=== PATIENT | male | born 1965 | race Hispanic/Latino ===

== ENCOUNTER 2020-05-19 08:46 | Inpatient (IN) | payer OTHER ==
[~2020-05-19] VITALS: Ht 172.7 cm; Wt 70.8 kg
[2020-05-19] MEDS ORDERED: ACETAMINOPHEN EXTRA STRENGTH 500 MG TABLET ONE (09:17)
[2020-05-19 09:18] LABS: BASOPHILS % (AUTO) 0.3 % (0.0-5.0); EOSINOPHILS % (AUTO) 0.5 % (0.0-8.0); HEMATOCRIT 35.5 % (42-54); LYMPHOCYTES % (AUTO) 4.3 % (21.0-51.0); MEAN CORPUSCULAR HEMOGLOBIN 33.2 pg (27.0-33.0); MEAN CORPUSCULAR HGB CONC 34.9 g/dL (32.0-36.0); MEAN CORPUSCULAR VOLUME 94.9 fL (79-99); MONOCYTES % (AUTO) 5.8 % (3.0-13.0); NEUTROPHILS % (AUTO) 88.4 % (40.0-77.0); PLATELET COUNT (AUTO) 235 K/uL (130-400); RED BLOOD CELL COUNT(AUTO) 3.74 MIL/uL (4.50-6.20); RED CELL DISTRIBUTION WIDTH 12.1 % (11.0-15.5)
[2020-05-19 09:49] LABS: INR 1.09 (0.85-1.15); PARTIAL THROMBOPLASTIN TIME 33.7 SEC (26.3-35.5); PROTHROMBIN TIME 11.7 SEC (9.6-11.6)
[2020-05-19 09:52] LABS: CARBON DIOXIDE 26 mmol/L (21-32); CHLORIDE 94 mmol/L (101-111); CREATININE 0.7 mg/dL (0.5-1.5); GLOMERULAR FILTR. RATE CALC 124 mL/min (>60); GLUCOSE,RANDOM 266 mg/dL (70-105); POTASSIUM 3.7 mmol/L (3.5-5.1); SODIUM SERUM 131 mmol/L (136-145); UREA NITROGEN, BLOOD 14 mg/dL (7-18)
[2020-05-19 10:01] LABS: ALANINE AMINOTRANSFERASE 55 U/L (12-78); ALBUMIN 2.7 g/dL (3.5-5.0); ASPARTATE AMINOTRANSFERASE 40 U/L (10-37); BILIRUBIN,TOTAL 0.6 mg/dL (0.2-1.0); CREATINE KINASE, TOTAL 42 U/L (21-232); MYOGLOBIN 35 ng/mL (10-92); TOTAL PROTEIN, SERUM 7.7 g/dL (6.0-8.3); TROPONIN I < 0.04 ng/mL (0.00-0.06)
[2020-05-19 10:30] LABS: APPEARANCE,URINE Clear (CLEAR); BILIRUBIN,URINE Negative (NEGATIVE); COLOR,URINE Dark Yellow (YELLOW); GLUCOSE, URINE (UA) >=1000 mg/dL (NEGATIVE); KETONES,URINE 15 mg/dL (NEGATIVE); LEUKOCYTE ESTERASE ,URINE Negative (NEGATIVE); NITRATE,URINE Negative (NEGATIVE); OCCULT BLOOD,URINE Negative (NEGATIVE); PH,URINE 5.5 (5.0-8.0); PROTEIN,URINE POS 1+ mg/dL (NEGATIVE)
[2020-05-19 13:27] LABS: BACTERIA,URINE Rare /HPF (None Seen); RBC,URINE 0-1 /HPF (0-1); SQUAMOUS EPITHELIAL CELL,UR Rare /HPF (0-2); WBC,URINE 0-1 /HPF (0-1)
[2020-05-19] MEDS ORDERED: ALBUTEROL INHALER 90MCG/INH IH PRN (15:45)
[2020-05-19] MEDS ORDERED: METHYLPREDNISOLONE SOD SUCC 125MG/2ML VIAL ONE (17:02)
[2020-05-19] MEDS ORDERED: CEFTRIAXONE SODIUM 1 GM ONE (17:02)
[2020-05-19] MEDS ORDERED: DOXYCYCLINE HYCLATE 100 MG TABLET PO ONE (17:02)
[2020-05-19 17:21] LABS: HEMOGLOBIN A1C 8.8 % (4.0-6.0)
[2020-05-19] MEDS ORDERED: SODIUM CHLORIDE 0.9% 100 ML IV ONE (17:21)
[2020-05-19 19:41] LABS: CRP QUANTITATIVE 386.2 mg/L (0.00-9.0)
[2020-05-19] MEDS ORDERED: ENOXAPARIN SODIUM 40 MG/0.4 ML SYRINGE SQ SCH (20:00)
[2020-05-19] MEDS ORDERED: FAMOTIDINE 20MG TAB 20 MG TAB ONE (20:57)
[2020-05-19] MEDS ORDERED: ENOXAPARIN SODIUM 40 MG/0.4 ML SYRINGE SQ ONE (20:57)
[2020-05-19] MEDS: INSULIN HUMULIN R 100 UNIT/ML 3ML SQ SCH (21:00)
[2020-05-19] MEDS: METHYLPREDNISOLONE SOD SUCC 125MG/2ML VIAL IVP SCH (21:00)
[2020-05-19] MEDS: CEFTRIAXONE SODIUM 1 GM IVP SCH (21:00)
[2020-05-19] MEDS: DOXYCYCLINE HYCLATE 100 MG TABLET PO SCH (21:00)
[2020-05-20] MEDS ORDERED: CEFTRIAXONE SODIUM 1 GM ONE ×3 (02:46→22:14)
[2020-05-20] MEDS: CEFTRIAXONE SODIUM 1 GM IVP SCH ×2 (03:45→15:45)
[2020-05-20] MEDS: LACTATED RINGERS 1000ML 1,000 ML IV SCH ×2 (05:45→19:05)
[2020-05-20] MEDS ORDERED: INSULIN HUMULIN R 100 UNIT/ML 3ML ONE ×5 (06:17→20:35)
[2020-05-20] MEDS: INSULIN HUMULIN R 100 UNIT/ML 3ML SQ SCH ×4 (07:30→21:00)
[2020-05-20 07:34] LABS: ALBUMIN 2.4 g/dL (3.5-5.0); BILIRUBIN,TOTAL 0.3 mg/dL (0.2-1.0); POTASSIUM 4.2 mmol/L (3.5-5.1); TOTAL PROTEIN, SERUM 7.4 g/dL (6.0-8.3)
[2020-05-20] MEDS ORDERED: INSULIN GLARGINE 100 UNITS/ML 10 ML VIAL SQ ONE (08:00)
[2020-05-20 08:16] LABS: CRP QUANTITATIVE 435.8 mg/L (0.00-9.0)
[2020-05-20] MEDS: DOXYCYCLINE HYCLATE 100 MG TABLET PO SCH ×2 (09:00→21:00)
[2020-05-20] MEDS: ASCORBIC ACID 500 MG TAB PO SCH (09:00)
[2020-05-20] MEDS: METHYLPREDNISOLONE SOD SUCC 125MG/2ML VIAL IVP SCH ×3 (09:00→21:00)
[2020-05-20] MEDS: FAMOTIDINE 20MG TAB 20 MG TAB PO SCH ×2 (09:00→21:00)
[2020-05-20] MEDS ORDERED: ASCORBIC ACID 500 MG TAB ONE (09:25)
[2020-05-20] MEDS ORDERED: FAMOTIDINE 20MG TAB 20 MG TAB ONE ×2 (09:26→21:53)
[2020-05-20] MEDS ORDERED: ZINC SULFATE 220 CAPSULE ONE (09:26)
[2020-05-20] MEDS ORDERED: METHYLPREDNISOLONE SOD SUCC 125MG/2ML VIAL ONE ×2 (09:26→21:53)
[2020-05-20] MEDS ORDERED: SODIUM CHLORIDE 0.9% 100 ML IV ONE (09:27)
[2020-05-20] MEDS ORDERED: DOXYCYCLINE HYCLATE 100 MG TABLET PO ONE ×2 (11:00→21:53)
[2020-05-20] MEDS: ZINC SULFATE 220 CAPSULE PO SCH (12:00)
--- NOTE | 2020-05-20 14:35 | NUR ---
attempted IA for DC planning and got no keriewr on both phone Addendum: 05/20/20 at 1439 by MAYITO BARFEILD RN CM Amended: Links added.
[2020-05-20] MEDS ORDERED: METHYLPREDNISOLONE SOD SUCC 40MG/ML 1ML ONE (17:26)
[2020-05-21] MEDS: CEFTRIAXONE SODIUM 1 GM IVP SCH ×2 (03:45→15:45)
[2020-05-21 03:54] LABS: BASOPHILS % (AUTO) 0.1 % (0.0-5.0); HEMATOCRIT 37.7 % (42-54); LYMPHOCYTES % (AUTO) 2.6 % (21.0-51.0); MEAN CORPUSCULAR HGB CONC 34.2 g/dL (32.0-36.0); MEAN CORPUSCULAR VOLUME 96.4 fL (79-99); MONOCYTES % (AUTO) 2.7 % (3.0-13.0); PLATELET COUNT (AUTO) 320 K/uL (130-400); RED BLOOD CELL COUNT(AUTO) 3.91 MIL/uL (4.50-6.20); RED CELL DISTRIBUTION WIDTH 12.3 % (11.0-15.5); WHITE BLOOD COUNT (AUTO) 14.7 K/uL (4.8-10.8)
[2020-05-21 04:13] LABS: ALBUMIN 2.3 g/dL (3.5-5.0); BILIRUBIN,TOTAL 0.5 mg/dL (0.2-1.0); POTASSIUM 4.5 mmol/L (3.5-5.1); TOTAL PROTEIN, SERUM 7.4 g/dL (6.0-8.3)
[2020-05-21 04:27] LABS: CRP QUANTITATIVE 375.9 mg/L (0.00-9.0)
[2020-05-21] MEDS ORDERED: INSULIN HUMULIN R 100 UNIT/ML 3ML ONE ×3 (06:39→17:28)
[2020-05-21] MEDS: INSULIN HUMULIN R 100 UNIT/ML 3ML SQ SCH ×5 (07:30→21:00)
[2020-05-21] MEDS: LACTATED RINGERS 1000ML 1,000 ML IV SCH ×2 (08:25→21:45)
[2020-05-21] MEDS ORDERED: METHYLPREDNISOLONE SOD SUCC 40MG/ML 1ML ONE (08:40)
[2020-05-21] MEDS ORDERED: ZINC SULFATE 220 CAPSULE ONE (08:41)
[2020-05-21] MEDS ORDERED: DOXYCYCLINE HYCLATE 100 MG TABLET PO ONE (08:41)
[2020-05-21] MEDS: ASCORBIC ACID 500 MG TAB PO SCH (09:00)
[2020-05-21] MEDS: DOXYCYCLINE HYCLATE 100 MG TABLET PO SCH ×3 (09:00→21:00)
[2020-05-21] MEDS: FAMOTIDINE 20MG TAB 20 MG TAB PO SCH ×3 (09:00→21:00)
[2020-05-21] MEDS: METHYLPREDNISOLONE SOD SUCC 125MG/2ML VIAL IVP SCH ×4 (09:00→21:00)
[2020-05-21] MEDS ORDERED: FAMOTIDINE 20MG TAB 20 MG TAB ONE (09:07)
[2020-05-21] MEDS ORDERED: CEFTRIAXONE SODIUM 1 GM ONE (09:07)
[2020-05-21] MEDS ORDERED: SODIUM CHLORIDE 0.9% 100 ML IV ONE (09:09)
[2020-05-21] MEDS: ZINC SULFATE 220 CAPSULE PO SCH (12:00)
--- NOTE | 2020-05-21 14:34 | NUR ---
SPOKE TO SPOUSE CARLOS GALLEGOS VIA PHONE FOR [place] LIVES WITH SPOUE, IS ACTIVE, INDPENDENT, DRIVES, IS EMPLOYED, NO DME OR HOME SERVICES, SEE DR. BAR CORDERO DCP IS HOME, CARLOS TO PROVIDE TRANSPORT Addendum: 05/21/20 at 1435 by MAYITO BARFIELD RN CM Amended: Links added.
--- NOTE | 2020-05-21 18:35 | NUR ---
PT RECEIVED TO ROOM 408 VIA STRETCHER PER ED STAFF. TRANSFERING FROM BED TO STRETCHER, PT DESATTED TO 86%, SOB WITH ANY EXERTION. 10L O2 VIA NRB. AMADOU IN USE FOR CONTINUOUS MONITORING OF PT'S HEART RATE AND O2 LEVEL. AAOx4. ABLE TO MAKE NEEDS. DENIED PAIN. LR AT 100 ML/HR VIA RIGHT ARM IV. ORIENTED TO ROOM. INSTRUCTED TO NOTIFY NURSE IF O2 SATS DROPS BELOW 92% WITH UNDERSTANDING VERBALIZED. SAFETY MEASURES IN PLACE.
[2020-05-21 19:02] VITALS: BP 128/72
[2020-05-21 20:45] VITALS: BP 127/89
[2020-05-21 23:19] VITALS: BP 105/63
[2020-05-22 03:25] VITALS: BP 102/56
[2020-05-22] MEDS: CEFTRIAXONE SODIUM 1 GM IVP SCH ×2 (04:47→14:53)
[2020-05-22] MEDS: LACTATED RINGERS 1000ML 1,000 ML IV SCH (04:50)
[2020-05-22] MEDS: INSULIN HUMULIN R 100 UNIT/ML 3ML SQ SCH ×4 (06:14→21:27)
[2020-05-22 08:00] VITALS: BP 104/64
[2020-05-22 08:36] LABS: BILIRUBIN,TOTAL 0.3 mg/dL (0.2-1.0); CREATININE 0.8 mg/dL (0.5-1.5); POTASSIUM 4.4 mmol/L (3.5-5.1); TOTAL PROTEIN, SERUM 6.4 g/dL (6.0-8.3)
[2020-05-22 08:45] LABS: CRP QUANTITATIVE 167.4 mg/L (0.00-9.0)
[2020-05-22] MEDS: ASCORBIC ACID 500 MG TAB PO SCH (09:21)
[2020-05-22] MEDS: METHYLPREDNISOLONE SOD SUCC 125MG/2ML VIAL IVP SCH ×3 (09:21→21:23)
[2020-05-22] MEDS: FAMOTIDINE 20MG TAB 20 MG TAB PO SCH ×2 (09:21→21:23)
[2020-05-22] MEDS: DOXYCYCLINE HYCLATE 100 MG TABLET PO SCH ×2 (09:21→21:24)
[2020-05-22] MEDS: ZINC SULFATE 220 CAPSULE PO SCH (12:16)
[2020-05-22 12:53] VITALS: BP 122/73
--- NOTE | 2020-05-22 13:19 | NUR ---
PT LYING IN BED AAOx4. ABLE TO MAKE NEEDS KNOWN. COVID+, ISOLATION PRECAUTION MAINTAINED. SEMI-DAVIS POSITION WITH O2 AT 10L VIA VENTIMASK. O2 SAT 93%. DYSPNEA WITH MINIMUM ACTIVITY. DR. GARNER ROUNDED WITH RECOMMENDATIONS TO KEEP PATIENT IN PRONE POSITION MUCH POSSIBLE, UNDERSTANDING VERBALIZED. PT REPOSITION SELF IN PRONE POSITION. AMADOU IN USE FOR CONTINUOUS MONITORING OF PT'S HEART RATE AND O2 LEVEL. DENIED ANY NEEDS/PAIN. LR AT 75 ML/HR VIA 20G RIGHT ARM IV. CONTINUOUS MONITORING ONGOING. SAFETY MEASURES IN PLACE.
[2020-05-22 17:55] VITALS: BP 125/74
[2020-05-22] MEDS ORDERED: ACETAMINOPHEN EXTRA STRENGTH 500 MG TABLET PO PRN (19:15)
[2020-05-22 20:00] VITALS: BP 126/75
[2020-05-22] MEDS: ENOXAPARIN SODIUM 40 MG/0.4 ML SYRINGE SQ SCH (21:23)
[2020-05-23] VITALS: BP 109/65
[2020-05-23 04:00] VITALS: BP 127/74
[2020-05-23] MEDS: CEFTRIAXONE SODIUM 1 GM IVP SCH ×2 (04:11→14:55)
[2020-05-23 05:18] LABS: BASOPHILS % (AUTO) 0.1 % (0.0-5.0); HEMATOCRIT 37.2 % (42-54); LYMPHOCYTES % (AUTO) 3.4 % (21.0-51.0); MEAN CORPUSCULAR HEMOGLOBIN 32.7 pg (27.0-33.0); MEAN CORPUSCULAR HGB CONC 33.3 g/dL (32.0-36.0); MEAN CORPUSCULAR VOLUME 98.2 fL (79-99); MONOCYTES % (AUTO) 3.8 % (3.0-13.0); NEUTROPHILS % (AUTO) 91.8 % (40.0-77.0); PLATELET COUNT (AUTO) 363 K/uL (130-400); RED BLOOD CELL COUNT(AUTO) 3.79 MIL/uL (4.50-6.20); RED CELL DISTRIBUTION WIDTH 12.1 % (11.0-15.5); WHITE BLOOD COUNT (AUTO) 11.9 K/uL (4.8-10.8)
[2020-05-23 05:43] LABS: ALBUMIN 2.2 g/dL (3.5-5.0); BILIRUBIN,TOTAL 0.4 mg/dL (0.2-1.0); CREATININE 0.9 mg/dL (0.5-1.5); CRP QUANTITATIVE 103.6 mg/L (0.00-9.0); POTASSIUM 4.4 mmol/L (3.5-5.1); TOTAL PROTEIN, SERUM 6.5 g/dL (6.0-8.3)
[2020-05-23] MEDS: INSULIN HUMULIN R 100 UNIT/ML 3ML SQ SCH ×4 (06:50→20:58)
[2020-05-23 07:30] VITALS: BP 128/73
--- NOTE | 2020-05-23 07:45 | NUR ---
PT AAOx4. RESPIRATIONS EVEN AND UNLABORED BUT O2 SAT 91% ON 15L NRB. INSTRUCTED TO BREATHE DEEPLY. REPOSITIONED FROM SUPINE TO PRONE. O2 SAT 97%. WILL MONITOR CLOSELY. SAFETY MEASURES IN PLACE. Addendum: 05/23/20 at 0748 by ESTELLE GARCIA RN RN Amended: Links added.
[2020-05-23] MEDS: FAMOTIDINE 20MG TAB 20 MG TAB PO SCH ×2 (09:13→20:46)
[2020-05-23] MEDS: DOXYCYCLINE HYCLATE 100 MG TABLET PO SCH ×2 (09:13→20:47)
[2020-05-23] MEDS: ASCORBIC ACID 500 MG TAB PO SCH (09:13)
[2020-05-23] MEDS: METHYLPREDNISOLONE SOD SUCC 125MG/2ML VIAL IVP SCH ×3 (09:13→20:46)
[2020-05-23] MEDS: ENOXAPARIN SODIUM 40 MG/0.4 ML SYRINGE SQ SCH ×2 (09:14→20:47)
[2020-05-23] MEDS: ZINC SULFATE 220 CAPSULE PO SCH (12:31)
[2020-05-23 12:33] VITALS: BP 124/72
--- NOTE | 2020-05-23 18:06 | NUR ---
AAOx4 DANGLING AT BEDSIDE IN NO APPARENT DISTRESS. COVID19+, ISOLATION PRECAUTIONS MAINTAINED. DENIES ANY NEEDS/PAIN. SB-SR ON TELE. RESPIRATIONS EVEN AND UNLABORED AT REST. SOB WITH ANY EXERTION. O2 VIA NRB AT 10L AT THIS TIME, O2 SATS MAINTAINING. CLEAR LIQUID DIET. LARGE LOOSE BM TODAY. ADEQUATE URINE OUTPUT. ELEVATED BLOOD GLUCOSES REQUIRING SSI COVERAGE. NEW ORDER FOR COVID19 CONVALESCENT PLASMA, CONSENT SIGNED AND PLACED ON CHART. CONTINUOUS MONITORING ONGOING. SAFETY MEASURES IN PLACE.
[2020-05-23 18:39] VITALS: BP 109/64
[2020-05-23 19:00] VITALS: BP 127/76
--- NOTE | 2020-05-23 20:00 | NUR ---
ASSESSMENT/TEACHING PATIENT AWAKE, ALERT, OX3, NO SOB, NO C/O PAIN AT THIS TIME, OXYGEN NONREBREATHER WEAN DOWN TO 70 %, OXYGEN SAT 99 % WILL CONTINUE TO MONITOR AND WEANING PERIMETERS, DISCUSSED WITH RESPIRATORY THERAPIST, TEACH PATIENT PLAN OF CARE AND EXPECTED OUTCOME, VERBALIZES UNDERSTANDING VIA TEACH BACK
[2020-05-24] VITALS: BP 138/77
--- NOTE | 2020-05-24 | NUR ---
NURSING OBS CONTINUE WITH nrb at 70 % oxygen, sat 99 %, no respiratory distress at this time, call christopher at reach
[2020-05-24 04:00] VITALS: BP 131/73
[2020-05-24] MEDS: CEFTRIAXONE SODIUM 1 GM IVP SCH ×2 (04:46→16:31)
[2020-05-24 05:36] LABS: BASOPHILS % (AUTO) 0.2 % (0.0-5.0); HEMATOCRIT 38.8 % (42-54); MEAN CORPUSCULAR HEMOGLOBIN 32.3 pg (27.0-33.0); MEAN CORPUSCULAR HGB CONC 33.8 g/dL (32.0-36.0); MEAN CORPUSCULAR VOLUME 95.6 fL (79-99); NEUTROPHILS % (AUTO) 90.7 % (40.0-77.0); PLATELET COUNT (AUTO) 340 K/uL (130-400); RED BLOOD CELL COUNT(AUTO) 4.06 MIL/uL (4.50-6.20); RED CELL DISTRIBUTION WIDTH 11.9 % (11.0-15.5); WHITE BLOOD COUNT (AUTO) 11.6 K/uL (4.8-10.8)
[2020-05-24] MEDS: INSULIN HUMULIN R 100 UNIT/ML 3ML SQ SCH ×4 (05:46→21:06)
[2020-05-24 06:36] LABS: ALANINE AMINOTRANSFERASE 46 U/L (12-78); ALBUMIN 2.1 g/dL (3.5-5.0); ASPARTATE AMINOTRANSFERASE 19 U/L (10-37); BILIRUBIN,TOTAL 0.4 mg/dL (0.2-1.0); CARBON DIOXIDE 31 mmol/L (21-32); CHLORIDE 99 mmol/L (101-111); CREATININE 0.7 mg/dL (0.5-1.5); GLOMERULAR FILTR. RATE CALC 124 mL/min (>60); GLUCOSE,RANDOM 182 mg/dL (70-105); LACTATE DEHYDROGENASE 276 U/L (81-234); POTASSIUM 4.4 mmol/L (3.5-5.1); SODIUM SERUM 138 mmol/L (136-145); TOTAL PROTEIN, SERUM 6.4 g/dL (6.0-8.3); UREA NITROGEN, BLOOD 22 mg/dL (7-18)
[2020-05-24] MEDS: ASCORBIC ACID 500 MG TAB PO SCH (08:47)
[2020-05-24] MEDS: ENOXAPARIN SODIUM 40 MG/0.4 ML SYRINGE SQ SCH ×2 (08:47→19:58)
[2020-05-24] MEDS: DOXYCYCLINE HYCLATE 100 MG TABLET PO SCH ×2 (08:47→19:57)
[2020-05-24] MEDS: METHYLPREDNISOLONE SOD SUCC 125MG/2ML VIAL IVP SCH ×3 (08:47→19:57)
[2020-05-24] MEDS: FAMOTIDINE 20MG TAB 20 MG TAB PO SCH (09:00)
[2020-05-24 09:37] VITALS: BP 135/61
[2020-05-24] MEDS: ZINC SULFATE 220 CAPSULE PO SCH (12:29)
[2020-05-24 13:25] VITALS: BP 146/88
--- NOTE | 2020-05-24 18:42 | NUR ---
AAOx4 DANGLING AT BEDSIDE IN NO APPARENT DISTRESS. COVID19+, ISOLATION PRECAUTIONS MAINTAINED. DENIES ANY NEEDS/PAIN. SB-SR ON TELE. RESPIRATIONS EVEN AND UNLABORED AT REST. SOB WITH ANY EXERTION. O2 VIA NRB AT 10L AT THIS TIME, O2 SAT STABLE. DIET UPGRADED TO CONSISTENT CARB. ADEQUATE URINE OUTPUT. ELEVATED BLOOD GLUCOSES REQUIRING SSI COVERAGE. COVID19 CONVALESCENT PLASMA TREATMENT PENDING. PLAN OF CARE REVIEWED. CONTINUOUS MONITORING ONGOING. SAFETY MEASURES IN PLACE.
[2020-05-24 19:15] VITALS: BP 134/77
[2020-05-24] MEDS ORDERED: METHYLPREDNISOLONE SOD SUCC 125MG/2ML VIAL ONE (19:24)
[2020-05-24 19:35] VITALS: BP 106/69
[2020-05-24] MEDS ORDERED: FAMOTIDINE/PF 20 MG/2 ML VIAL IV ONE (19:47)
--- NOTE | 2020-05-24 20:00 | NUR ---
assessment/oxygen awake, alert, ox4, per respiratory therapist, increase nrb to 15 liters, lows saturation , see rt assessment, will continue to monitor attempt weaning parameters, teach patient plan of care and expected outcome, patient verbalizes understanding via teach back
[2020-05-24] MEDS: FAMOTIDINE/PF 20 MG/2 ML VIAL IV SCH (21:00)
--- NOTE | 2020-05-24 21:30 | NUR ---
wean o2 oxygen saturation 98 % on nrb at 15 liters, decrease to 12 liters, monitor with continuous oxygen monitor saturation at 96 %
[2020-05-25] VITALS (7 sets, daily range): BP systolic 104–136; BP diastolic 63–81
--- NOTE | 2020-05-25 03:31 | NUR ---
de sat patient saturation down to 88-89%, increase back to 15 liters via nrb, saturation up to 91 %
[2020-05-25] MEDS: CEFTRIAXONE SODIUM 1 GM IVP SCH ×2 (04:22→15:00)
[2020-05-25] MEDS: INSULIN HUMULIN R 100 UNIT/ML 3ML SQ SCH ×6 (06:03→20:49)
[2020-05-25 06:13] LABS: BASOPHILS % (AUTO) 0.2 % (0.0-5.0); HEMATOCRIT 38.7 % (42-54); LYMPHOCYTES % (AUTO) 3.8 % (21.0-51.0); MEAN CORPUSCULAR HEMOGLOBIN 32.8 pg (27.0-33.0); MEAN CORPUSCULAR HGB CONC 34.4 g/dL (32.0-36.0); MEAN CORPUSCULAR VOLUME 95.3 fL (79-99); MONOCYTES % (AUTO) 3.8 % (3.0-13.0); NEUTROPHILS % (AUTO) 90.4 % (40.0-77.0); PLATELET COUNT (AUTO) 373 K/uL (130-400); RED BLOOD CELL COUNT(AUTO) 4.06 MIL/uL (4.50-6.20); RED CELL DISTRIBUTION WIDTH 11.9 % (11.0-15.5); WHITE BLOOD COUNT (AUTO) 11.5 K/uL (4.8-10.8)
[2020-05-25 06:32] LABS: BILIRUBIN,TOTAL 0.4 mg/dL (0.2-1.0); CREATININE 0.7 mg/dL (0.5-1.5); CRP QUANTITATIVE 59.4 mg/L (0.00-9.0); POTASSIUM 4.6 mmol/L (3.5-5.1)
[2020-05-25] MEDS: INSULIN GLARGINE 100 UNITS/ML 10 ML VIAL SQ SCH ×2 (06:32→20:50)
[2020-05-25] MEDS ORDERED: INSULIN HUMULIN R 100 UNIT/ML 3ML SQ SCH (07:30)
[2020-05-25] MEDS: METHYLPREDNISOLONE SOD SUCC 125MG/2ML VIAL IVP SCH ×3 (09:06→20:43)
[2020-05-25] MEDS: DOXYCYCLINE HYCLATE 100 MG TABLET PO SCH ×2 (09:06→20:43)
[2020-05-25] MEDS: ASCORBIC ACID 500 MG TAB PO SCH (09:06)
[2020-05-25] MEDS: ENOXAPARIN SODIUM 40 MG/0.4 ML SYRINGE SQ SCH ×2 (09:07→20:44)
[2020-05-25] MEDS: FAMOTIDINE/PF 20 MG/2 ML VIAL IV SCH ×2 (09:07→20:43)
--- NOTE | 2020-05-25 11:43 | NUR ---
PT AWAKE IN BED IN NO APPARENT DISTRESS. BLOOD GLUCOSE 372, DR. PICKENS NOTIFIED WITH NEW ORDERS RECEIVED TO GIVE 1O UNITS OF REGULAR INSULIN NOW AND INCREASE SCHEDULED REGULAR INSULIN TO 8 UNITS.
[2020-05-25] MEDS: ZINC SULFATE 220 CAPSULE PO SCH (12:06)
--- NOTE | 2020-05-25 18:10 | NUR ---
AAOx4 LYING PRONE IN BED AT THIS TIME IN NO APPARENT DISTRESS. COVID19+, ISOLATION PRECAUTIONS MAINTAINED. DENIES ANY PAIN/DISCOMFORT. SB-SR ON TELE. RESPIRATIONS EVEN AND UNLABORED AT REST. SOB WITH ANY EXERTION. O2 VIA NRB AT 15L AT THIS TIME, O2 SAT STABLE. ATTEMPT TO WEAN DOWN O2 UNSUCCESSFUL. ADEQUATE URINE OUTPUT. ELEVATED BLOOD GLUCOSES REQUIRING SSI COVERAGE. COVID19 CONVALESCENT PLASMA TREATMENT PENDING. CONTINUOUS MONITORING ONGOING. SAFETY MEASURES IN PLACE.
--- NOTE | 2020-05-25 20:00 | NUR ---
assessment note patient awake, alert, ox4, nrb AT 15 LITERS, SATURATION AT 98 %, DISCUSSED WITH RESPIRATORY THERAPIST WEANING PARAMETERS, TEACH PATIENT PLAN OF CARE AND EXPECTED OUTCOME, PATIENT VERBALIZES UNDERSTANDING VIA TEACH BACK
[2020-05-26 03:31] VITALS: BP 137/79
[2020-05-26] MEDS: CEFTRIAXONE SODIUM 1 GM IVP SCH (05:00)
[2020-05-26] MEDS: INSULIN HUMULIN R 100 UNIT/ML 3ML SQ SCH ×5 (05:31→20:49)
[2020-05-26] MEDS: INSULIN GLARGINE 100 UNITS/ML 10 ML VIAL SQ SCH ×2 (06:22→20:49)
[2020-05-26 08:32] VITALS: BP 122/75
[2020-05-26] MEDS: ASCORBIC ACID 500 MG TAB PO SCH (09:21)
[2020-05-26] MEDS: METHYLPREDNISOLONE SOD SUCC 125MG/2ML VIAL IVP SCH ×3 (09:21→20:09)
[2020-05-26] MEDS: FAMOTIDINE/PF 20 MG/2 ML VIAL IV SCH ×2 (09:21→20:09)
[2020-05-26] MEDS: DOXYCYCLINE HYCLATE 100 MG TABLET PO SCH (09:21)
[2020-05-26] MEDS: ENOXAPARIN SODIUM 40 MG/0.4 ML SYRINGE SQ SCH ×2 (09:22→20:09)
[2020-05-26] MEDS: ZINC SULFATE 220 CAPSULE PO SCH (12:12)
[2020-05-26 12:28] VITALS: BP 121/76
[2020-05-26] MEDS ORDERED: INSULIN HUMULIN R 100 UNIT/ML 3ML SQ SCH (17:00)
[2020-05-26 17:45] VITALS: BP 149/75
--- NOTE | 2020-05-26 18:10 | NUR ---
AAOx4. OOB IN CHAIR AT THIS TIME IN NO APPARENT DISTRESS. COVID19+, ISOLATION PRECAUTIONS MAINTAINED. DENIES ANY PAIN/DISCOMFORT. SR-ST ON TELE. RESPIRATIONS EVEN AND UNLABORED AT REST. SOB WITH ANY EXERTION. O2 VIA NRB AT 15L AT THIS TIME, O2 SAT 97%. ADEQUATE URINE OUTPUT. ELEVATED BLOOD GLUCOSES REQUIRING SSI COVERAGE. COVID19 CONVALESCENT PLASMA TREATMENT PENDING. CONTINUOUS MONITORING ONGOING. SAFETY MEASURES IN PLACE.
[2020-05-26 20:00] VITALS: BP 136/79
--- NOTE | 2020-05-26 20:00 | NUR ---
PT IS ON NON REBREATHER. STATES AT REST FEELS FINE. NO SOB. WHEN AMBULATES HE FEELS SOB GOING TO BEDSIDE COMMODE. PT IS TAKING MEDICATIONS WELL. IV IS SENSITIVE. REFUSES NEW IV FOR NOW. INFORMED THAT IF PLASMA WILL BE GIVEN NEW IV WILL BE STARTED.
[2020-05-26] MEDS ORDERED: INSULIN GLARGINE 100 UNITS/ML 10 ML VIAL SQ SCH (21:00)
[2020-05-26 23:37] VITALS: BP 149/69
[2020-05-27 04:04] VITALS: BP 148/72
[2020-05-27] MEDS: INSULIN HUMULIN R 100 UNIT/ML 3ML SQ SCH ×7 (05:28→21:40)
[2020-05-27] MEDS: INSULIN GLARGINE 100 UNITS/ML 10 ML VIAL SQ SCH ×2 (05:29→21:39)
[2020-05-27 06:31] LABS: BASOPHILS % (AUTO) 0.3 % (0.0-5.0); HEMATOCRIT 40.6 % (42-54); LYMPHOCYTES % (AUTO) 5.4 % (21.0-51.0); MEAN CORPUSCULAR HEMOGLOBIN 33.3 pg (27.0-33.0); MEAN CORPUSCULAR VOLUME 98.1 fL (79-99); MONOCYTES % (AUTO) 3.2 % (3.0-13.0); NEUTROPHILS % (AUTO) 88.4 % (40.0-77.0); PLATELET COUNT (AUTO) 361 K/uL (130-400); RED BLOOD CELL COUNT(AUTO) 4.14 MIL/uL (4.50-6.20); RED CELL DISTRIBUTION WIDTH 11.9 % (11.0-15.5); WHITE BLOOD COUNT (AUTO) 11.9 K/uL (4.8-10.8)
[2020-05-27 07:06] LABS: ALANINE AMINOTRANSFERASE 39 U/L (12-78); ALBUMIN 2.2 g/dL (3.5-5.0); ASPARTATE AMINOTRANSFERASE 19 U/L (10-37); BILIRUBIN,TOTAL 0.6 mg/dL (0.2-1.0); CARBON DIOXIDE 33 mmol/L (21-32); CHLORIDE 99 mmol/L (101-111); CREATININE 0.7 mg/dL (0.5-1.5); GLOMERULAR FILTR. RATE CALC 124 mL/min (>60); GLUCOSE,RANDOM 161 mg/dL (70-105); LACTATE DEHYDROGENASE 270 U/L (81-234); POTASSIUM 4.7 mmol/L (3.5-5.1); SODIUM SERUM 138 mmol/L (136-145); TOTAL PROTEIN, SERUM 6.2 g/dL (6.0-8.3); UREA NITROGEN, BLOOD 24 mg/dL (7-18)
[2020-05-27 08:45] VITALS: BP 104/69
[2020-05-27] MEDS: METHYLPREDNISOLONE SOD SUCC 125MG/2ML VIAL IVP SCH ×3 (08:45→21:38)
[2020-05-27] MEDS: FAMOTIDINE/PF 20 MG/2 ML VIAL IV SCH ×2 (08:46→21:38)
[2020-05-27] MEDS: ENOXAPARIN SODIUM 40 MG/0.4 ML SYRINGE SQ SCH ×2 (08:46→21:38)
[2020-05-27] MEDS: ASCORBIC ACID 500 MG TAB PO SCH (08:46)
[2020-05-27 11:00] VITALS: BP 101/65
[2020-05-27] MEDS: ZINC SULFATE 220 CAPSULE PO SCH (12:34)
[2020-05-27 16:00] VITALS: BP 127/73
--- NOTE | 2020-05-27 18:13 | NUR ---
AAOx4. RESTING QUIETLY IN BED AT THIS TIME IN NO APPARENT DISTRESS. COVID19+, ISOLATION PRECAUTIONS MAINTAINED. DENIES ANY PAIN/DISCOMFORT. SR-ST ON TELE. RESPIRATIONS EVEN AND UNLABORED AT REST. SOB WITH ANY EXERTION. O2 VIA NRB AT 12.5L AT THIS TIME, O2 SAT 95%. ADEQUATE URINE OUTPUT. ELEVATED BLOOD GLUCOSES REQUIRING SSI COVERAGE. COVID19 CONVALESCENT PLASMA TREATMENT ADMINISTERED, TOLERATED GOOD WITH NO ADVERSE REACTIONS NOTED. CONTINUOUS MONITORING ONGOING. SAFETY MEASURES IN PLACE.
[2020-05-27 20:00] VITALS: BP 122/71
[2020-05-28] VITALS: BP 148/79
[2020-05-28 04:00] VITALS: BP 140/76
[2020-05-28 04:58] LABS: BASOPHILS % (AUTO) 0.2 % (0.0-5.0); HEMATOCRIT 39.2 % (42-54); LYMPHOCYTES % (AUTO) 4.1 % (21.0-51.0); MEAN CORPUSCULAR HEMOGLOBIN 32.6 pg (27.0-33.0); MEAN CORPUSCULAR HGB CONC 33.9 g/dL (32.0-36.0); MEAN CORPUSCULAR VOLUME 96.1 fL (79-99); MONOCYTES % (AUTO) 2.8 % (3.0-13.0); NEUTROPHILS % (AUTO) 89.5 % (40.0-77.0); PLATELET COUNT (AUTO) 341 K/uL (130-400); RED BLOOD CELL COUNT(AUTO) 4.08 MIL/uL (4.50-6.20); RED CELL DISTRIBUTION WIDTH 12.1 % (11.0-15.5); WHITE BLOOD COUNT (AUTO) 12.6 K/uL (4.8-10.8)
[2020-05-28 05:26] LABS: ALANINE AMINOTRANSFERASE 60 U/L (12-78); ALBUMIN 2.3 g/dL (3.5-5.0); ASPARTATE AMINOTRANSFERASE 22 U/L (10-37); BILIRUBIN,TOTAL 0.6 mg/dL (0.2-1.0); CARBON DIOXIDE 36 mmol/L (21-32); CHLORIDE 99 mmol/L (101-111); CREATININE 0.8 mg/dL (0.5-1.5); GLOMERULAR FILTR. RATE CALC 107 mL/min (>60); GLUCOSE,RANDOM 119 mg/dL (70-105); LACTATE DEHYDROGENASE 259 U/L (81-234); POTASSIUM 4.7 mmol/L (3.5-5.1); SODIUM SERUM 139 mmol/L (136-145); TOTAL PROTEIN, SERUM 6.3 g/dL (6.0-8.3); UREA NITROGEN, BLOOD 24 mg/dL (7-18)
[2020-05-28] MEDS: INSULIN HUMULIN R 100 UNIT/ML 3ML SQ SCH ×7 (07:20→20:56)
[2020-05-28 08:00] VITALS: BP 116/70
[2020-05-28] MEDS: FAMOTIDINE/PF 20 MG/2 ML VIAL IV SCH ×2 (08:33→20:51)
[2020-05-28] MEDS: INSULIN GLARGINE 100 UNITS/ML 10 ML VIAL SQ SCH ×2 (08:33→20:53)
[2020-05-28] MEDS: METHYLPREDNISOLONE SOD SUCC 125MG/2ML VIAL IVP SCH ×3 (08:33→20:51)
[2020-05-28] MEDS: ENOXAPARIN SODIUM 40 MG/0.4 ML SYRINGE SQ SCH ×2 (08:34→20:52)
[2020-05-28] MEDS: ASCORBIC ACID 500 MG TAB PO SCH (08:34)
--- NOTE | 2020-05-28 08:35 | NUR ---
AAOx4. OOB IN CHAIR AT THIS TIME IN NO APPARENT DISTRESS. COVID19+, ISOLATION PRECAUTIONS MAINTAINED. DENIES ANY PAIN/DISCOMFORT. SR-ST ON TELE. RESPIRATIONS EVEN AND UNLABORED AT REST. SOB WITH ANY EXERTION. O2 VIA NRB AT 15L, O2 SAT 96%. SCHEDULED MEDICATIONS ADMINISTERED. CONTINUOUS MONITORING ONGOING. SAFETY MEASURES IN PLACE. MEDICATIONS ADMINISTERED VIA OVERRIDE DUE TO WIRELESS INTERNET DOWN.
--- NOTE | 2020-05-28 10:33 | NUR ---
RDSCREEN - LOS X 9 Pt positive for COVID-19. Tolerating 75gm CCD with no report of GI distress, Good PO intake. WBC 12.6, LDH 259, Alb 2.3. Vitamin C, ZnSO4 in place. S/p Plasma Tx. Prone positioning for sleeping, per EMR. Recommend 500mg Vitamin C BID Recommend 60mL ProMod QD RD to continue to monitor. Please notify as additional nutrition concerns arise, Thank you.
[2020-05-28 11:00] VITALS: BP 115/68
[2020-05-28] MEDS: ZINC SULFATE 220 CAPSULE PO SCH (11:41)
--- NOTE | 2020-05-28 12:00 | NUR ---
FAMILY NOTIFICATION AND UPDATE SPOKE TO CARLOS GALLEGOS. GIVEN PT STATUS UPDATE AND PLAN OF CARE . ALL QUESTIONS ANSWERED. GIVEN PASSWORD FOR CALLS
--- NOTE | 2020-05-28 15:45 | NUR ---
Family notification Addendum for 05/27/2020; spoke to Serena Rouse and gave her an update regarding patient's condition. All questions were answered and concerns addressed. Verbalized understanding and was very appreciative of call
[2020-05-28 16:00] VITALS: BP 130/72
[2020-05-28 20:12] VITALS: BP 127/73
[2020-05-29 00:12] VITALS: BP 156/84
[2020-05-29 04:08] VITALS: BP 149/81
[2020-05-29] MEDS: INSULIN HUMULIN R 100 UNIT/ML 3ML SQ SCH ×7 (05:36→21:15)
[2020-05-29] MEDS: INSULIN GLARGINE 100 UNITS/ML 10 ML VIAL SQ SCH ×2 (06:43→21:16)
[2020-05-29 07:02] LABS: BASOPHILS % (AUTO) 0.3 % (0.0-5.0); HEMATOCRIT 39.8 % (42-54); LYMPHOCYTES % (AUTO) 2.7 % (21.0-51.0); MEAN CORPUSCULAR HEMOGLOBIN 32.7 pg (27.0-33.0); MEAN CORPUSCULAR HGB CONC 33.9 g/dL (32.0-36.0); MEAN CORPUSCULAR VOLUME 96.4 fL (79-99); MONOCYTES % (AUTO) 3.7 % (3.0-13.0); NEUTROPHILS % (AUTO) 90.4 % (40.0-77.0); PLATELET COUNT (AUTO) 316 K/uL (130-400); RED BLOOD CELL COUNT(AUTO) 4.13 MIL/uL (4.50-6.20); RED CELL DISTRIBUTION WIDTH 12.1 % (11.0-15.5); WHITE BLOOD COUNT (AUTO) 13.6 K/uL (4.8-10.8)
[2020-05-29 07:09] LABS: ALANINE AMINOTRANSFERASE 61 U/L (12-78); ALBUMIN 2.2 g/dL (3.5-5.0); ASPARTATE AMINOTRANSFERASE 22 U/L (10-37); BILIRUBIN,TOTAL 0.5 mg/dL (0.2-1.0); CARBON DIOXIDE 35 mmol/L (21-32); CHLORIDE 98 mmol/L (101-111); CREATININE 0.7 mg/dL (0.5-1.5); GLOMERULAR FILTR. RATE CALC 124 mL/min (>60); GLUCOSE,RANDOM 143 mg/dL (70-105); LACTATE DEHYDROGENASE 345 U/L (81-234); POTASSIUM 4.4 mmol/L (3.5-5.1); SODIUM SERUM 140 mmol/L (136-145); TOTAL PROTEIN, SERUM 5.8 g/dL (6.0-8.3); UREA NITROGEN, BLOOD 26 mg/dL (7-18)
[2020-05-29 08:00] VITALS: BP 130/84
[2020-05-29] MEDS: FAMOTIDINE/PF 20 MG/2 ML VIAL IV SCH ×2 (09:01→20:59)
[2020-05-29] MEDS: ASCORBIC ACID 500 MG TAB PO SCH (09:01)
[2020-05-29] MEDS: ENOXAPARIN SODIUM 40 MG/0.4 ML SYRINGE SQ SCH ×2 (09:01→20:59)
[2020-05-29] MEDS: METHYLPREDNISOLONE SOD SUCC 125MG/2ML VIAL IVP SCH ×3 (09:02→20:59)
[2020-05-29 12:00] VITALS: BP 161/84
[2020-05-29] MEDS: ZINC SULFATE 220 CAPSULE PO SCH (12:04)
[2020-05-29] MEDS ORDERED: PHARMACY COMMUNICATION MISC SCH (12:45)
[2020-05-29 15:30] VITALS: BP 124/75
[2020-05-29] MEDS ORDERED: REMDESIVIR (EUA) 520 200 MG in SODIUM CHLORIDE 0.9% 250 ML IV SCH (16:00)
[2020-05-29] MEDS ORDERED: REMDESIVIR (EUA) 520 100 MG VIAL IV ONE (16:00)
--- NOTE | 2020-05-29 18:33 | NUR ---
AAOx4. DANGLING AT BEDSIDE AT THIS TIME IN NO APPARENT DISTRESS. COVID19+, ISOLATION PRECAUTIONS MAINTAINED. GENERALIZED WEAKNESS AND FATIGUE. DENIES ANY PAIN/DISCOMFORT. SR-ST ON TELE. RESPIRATIONS EVEN AND UNLABORED AT REST. SOB WITH DESATTING WITH ANY EXERTION. O2 VIA NRB AT 15L, O2 SAT 96%. REMDESIVIR THERAPY ADMINISTERED. CONTINUOUS MONITORING ONGOING. SAFETY MEASURES IN PLACE.
--- NOTE | 2020-05-29 20:00 | NUR ---
assessment /teaching patient awake, alert, ox3, sob with minimal exertion, continue on nrb at 100 %, sat 98 %, extensive discussion with patient regarding plan of care and expected outcome, teaching done new medication remdesivir , allow to ask questions, all questions answered, teach expected outcome, patient verbalizes understanding via teach back
[2020-05-29 20:58] VITALS: BP 118/82
[2020-05-30] VITALS (7 sets, daily range): BP systolic 101–127; BP diastolic 45–82
[2020-05-30] MEDS: INSULIN HUMULIN R 100 UNIT/ML 3ML SQ SCH ×7 (06:01→20:29)
[2020-05-30 06:32] LABS: BASOPHILS % (AUTO) 0.2 % (0.0-5.0); HEMATOCRIT 40.5 % (42-54); LYMPHOCYTES % (AUTO) 3.1 % (21.0-51.0); MEAN CORPUSCULAR HEMOGLOBIN 32.6 pg (27.0-33.0); MEAN CORPUSCULAR HGB CONC 34.1 g/dL (32.0-36.0); MEAN CORPUSCULAR VOLUME 95.7 fL (79-99); MONOCYTES % (AUTO) 4.5 % (3.0-13.0); NEUTROPHILS % (AUTO) 90.4 % (40.0-77.0); PLATELET COUNT (AUTO) 313 K/uL (130-400); RED BLOOD CELL COUNT(AUTO) 4.23 MIL/uL (4.50-6.20); RED CELL DISTRIBUTION WIDTH 12.2 % (11.0-15.5); WHITE BLOOD COUNT (AUTO) 15.5 K/uL (4.8-10.8)
[2020-05-30 07:22] LABS: ALANINE AMINOTRANSFERASE 60 U/L (12-78); ALBUMIN 2.3 g/dL (3.5-5.0); ASPARTATE AMINOTRANSFERASE 23 U/L (10-37); BILIRUBIN,TOTAL 0.6 mg/dL (0.2-1.0); CARBON DIOXIDE 35 mmol/L (21-32); CHLORIDE 100 mmol/L (101-111); CREATININE 0.6 mg/dL (0.5-1.5); GLOMERULAR FILTR. RATE CALC 149 mL/min (>60); GLUCOSE,RANDOM 92 mg/dL (70-105); LACTATE DEHYDROGENASE 260 U/L (81-234); POTASSIUM 4.1 mmol/L (3.5-5.1); SODIUM SERUM 137 mmol/L (136-145); TOTAL PROTEIN, SERUM 5.7 g/dL (6.0-8.3); UREA NITROGEN, BLOOD 24 mg/dL (7-18)
[2020-05-30] MEDS: INSULIN GLARGINE 100 UNITS/ML 10 ML VIAL SQ SCH ×2 (07:30→20:28)
[2020-05-30] MEDS: ASCORBIC ACID 500 MG TAB PO SCH (08:24)
[2020-05-30] MEDS: FAMOTIDINE/PF 20 MG/2 ML VIAL IV SCH ×2 (08:24→20:14)
[2020-05-30] MEDS: ENOXAPARIN SODIUM 40 MG/0.4 ML SYRINGE SQ SCH ×2 (08:24→20:15)
[2020-05-30] MEDS: METHYLPREDNISOLONE SOD SUCC 125MG/2ML VIAL IVP SCH ×3 (08:24→20:14)
--- NOTE | 2020-05-30 08:30 | NUR ---
AAOx4. DANGLING AT BEDSIDE WITH LABORED BREATHING NOTED, O2 SAT 80%. NRB @ 15L IN USE. GENERALIZED WEAKNESS, FATIGUE. SINUS TACH ON TELE. ASSISTED TO PRONE POSITION, DESATTED TO 63%. RT NOTIFIED TO ASSESS PATIENT. O2 SAT INCREASED TO 90%. DR. ALAN MADE AWARE UPON ROUNDING. CONTINUOUS MONITORING ONGOING. SAFETY MEASURES IN PLACE.
[2020-05-30] MEDS ORDERED: COMPOUND IV REFRIGERATED 1 EACH IVSOLN MISC PRN (11:30)
[2020-05-30] MEDS: ZINC SULFATE 220 CAPSULE PO SCH (11:52)
--- NOTE | 2020-05-30 12:45 | NUR ---
Family notification Spoke to Serena Rouse to give her an update regarding pt's condition. Ms. Rouse had questions if anti viral was being given. Told her yes and reviewed the times with her. All other questions were answered and concerns addressed. She was very appreciative for the call
[2020-05-30] MEDS ORDERED: REMDESIVIR (EUA) 520 100 MG VIAL IV ONE (16:00)
[2020-05-30] MEDS: REMDESIVIR (EUA) 520 100 MG in SODIUM CHLORIDE 0.9% 250 ML IV SCH (16:53)
--- NOTE | 2020-05-30 17:51 | NUR ---
AAOx4. AWAKE IN BED AT THIS TIME IN NO APPARENT DISTRESS. ISOLATION PRECAUTIONS MAINTAINED. DENIES ANY PAIN/DISCOMFORT. SR ON TELE. RESPIRATIONS EVEN AND UNLABORED AT REST. O2 VIA NRB AT 15L, O2 SAT 94%. REMDESIVIR THERAPY ADMINISTERED. CONTINUOUS MONITORING ONGOING. SAFETY MEASURES IN PLACE. DR. ALAN ROUNDED WITH INSTRUCTIONS TO TRANSFER PATIENT TO ICU OVERNIGHT IF PATIENT'S CONDITION DETERIORATE.
--- NOTE | 2020-05-30 20:00 | NUR ---
ASSESSMENT PATIENT AWAKE, ALERT, OX3, CONTINUE ONNRB 70%,SATURATION 98 %, ON PRONE POSITION, TEACH PATIENT PLAN OF CARE AND EXPECTED OUTCOME, PATIENT VERBALIZES UNDERSTANDING VIA TEACH BACK
[2020-05-31 04:04] VITALS: BP 123/70
[2020-05-31 05:18] LABS: BASOPHILS % (AUTO) 0.2 % (0.0-5.0); HEMATOCRIT 39.5 % (42-54); MEAN CORPUSCULAR HGB CONC 33.7 g/dL (32.0-36.0); MONOCYTES % (AUTO) 5.2 % (3.0-13.0); NEUTROPHILS % (AUTO) 91.2 % (40.0-77.0); PLATELET COUNT (AUTO) 268 K/uL (130-400); RED BLOOD CELL COUNT(AUTO) 4.03 MIL/uL (4.50-6.20); RED CELL DISTRIBUTION WIDTH 12.3 % (11.0-15.5)
[2020-05-31 05:27] LABS: CREATININE 0.7 mg/dL (0.5-1.5); POTASSIUM 4.7 mmol/L (3.5-5.1)
[2020-05-31] MEDS: INSULIN HUMULIN R 100 UNIT/ML 3ML SQ SCH ×7 (06:02→20:31)
[2020-05-31 08:00] VITALS: BP 118/75
[2020-05-31] MEDS: FAMOTIDINE/PF 20 MG/2 ML VIAL IV SCH ×2 (08:27→20:22)
[2020-05-31] MEDS: ASCORBIC ACID 500 MG TAB PO SCH (08:27)
[2020-05-31] MEDS: ENOXAPARIN SODIUM 40 MG/0.4 ML SYRINGE SQ SCH ×2 (08:28→20:23)
[2020-05-31] MEDS: METHYLPREDNISOLONE SOD SUCC 125MG/2ML VIAL IVP SCH ×3 (08:28→20:22)
[2020-05-31] MEDS: INSULIN GLARGINE 100 UNITS/ML 10 ML VIAL SQ SCH ×2 (08:29→20:30)
--- NOTE | 2020-05-31 10:25 | NUR ---
Nutrition Follow Up: Pt continue on 75 gm CCD. Patient on venti mask unable to answer phone due to respiratory distress. Per nurse, patient is eating well with no nutritional issues. Per nurse, not sure if promod is taken. LBM x 5 days. A1C 8.8 Recommend: continue patient on 75gm CCD, no concentrated sweets due to steriod therapy- Discontinue promod and add glucerna 1 can at lunch for added protein Add Vit D 1000 IU daily Provide patient with stool softener due to LBM x5 days. Outpatient T2DM nutrition education when patient able for uncontrolled diabetes. Addendum: 05/31/20 at [address] Amended: Links added.
[2020-05-31 11:00] VITALS: BP 122/76
[2020-05-31] MEDS: ZINC SULFATE 220 CAPSULE PO SCH (12:24)
--- NOTE | 2020-05-31 13:10 | NUR ---
Family update Spoke to Serena Rouse and gave her an update regarding pt's condition. Ms. Rouse wanted to know at what time Remdesivir was given. Informed her it was given yesterday and is due at 4pm. She was very appreciative for the info. All other questions were answered and concerns addressed. She was very grateful for the call.
[2020-05-31 16:00] VITALS: BP 134/81
[2020-05-31] MEDS ORDERED: REMDESIVIR (EUA) 520 100 MG VIAL IV ONE (16:00)
[2020-05-31] MEDS: REMDESIVIR (EUA) 520 100 MG in SODIUM CHLORIDE 0.9% 250 ML IV SCH (16:58)
--- NOTE | 2020-05-31 17:20 | NUR ---
Nutrition Education: Unable to reach patient. Provided written material with contact information for questions.
--- NOTE | 2020-05-31 18:13 | NUR ---
AAOx4. AWAKE IN BED AT THIS TIME IN NO APPARENT DISTRESS. ISOLATION PRECAUTIONS MAINTAINED. DENIES ANY PAIN/DISCOMFORT. SR ON TELE. RESPIRATIONS EVEN AND UNLABORED AT REST. O2 VIA NRB AT 15L, O2 SAT 97%. DESATS WITH ANY MOVEMENT. REMDESIVIR THERAPY ADMINISTERED. CONTINUOUS MONITORING ONGOING. SAFETY MEASURES IN PLACE.
[2020-05-31 19:00] VITALS: BP 134/86
--- NOTE | 2020-05-31 20:00 | NUR ---
ASSESSMENT NOTE PATIENT AWAKE, ALERT, OX3, ON NRB AT 15 LITERS, OXYGEN SATURATION 97 % , TEACH PATIENT PLAN OF CARE AND EXPECTED OUTCOME, PATIENT STATES " TODAY WAS A LITTLE BETTER", ANSWER ALL QUESTIONS, CALL ALEMAN AT REACH
[2020-06-01] VITALS: BP 140/83
--- NOTE | 2020-06-01 00:05 | NUR ---
NURSING OBS RESTING IN PRONE POSITION. SATURATION 97 %, CALL ALEMAN AT REACH
[2020-06-01 03:50] VITALS: BP 140/89
--- NOTE | 2020-06-01 04:10 | NUR ---
NURSING OBS ASLEEP, CONTINUE ON PRONE POSITION, NRB INTACT WITH SAME SETTINGS, OXYGEN SATURATION 96 % , CONTINUOUS PULSE OXIMETER, CALL ALEMAN AT REACH
[2020-06-01] MEDS: INSULIN HUMULIN R 100 UNIT/ML 3ML SQ SCH ×7 (06:05→21:21)
[2020-06-01 08:00] VITALS: BP 124/73
[2020-06-01 08:03] LABS: BASOPHILS % (AUTO) 0.2 % (0.0-5.0); HEMATOCRIT 42.9 % (42-54); LYMPHOCYTES % (AUTO) 6.1 % (21.0-51.0); MEAN CORPUSCULAR HGB CONC 34.3 g/dL (32.0-36.0); MEAN CORPUSCULAR VOLUME 96.2 fL (79-99); MONOCYTES % (AUTO) 6.9 % (3.0-13.0); NEUTROPHILS % (AUTO) 85.3 % (40.0-77.0); PLATELET COUNT (AUTO) 265 K/uL (130-400); RED BLOOD CELL COUNT(AUTO) 4.46 MIL/uL (4.50-6.20); RED CELL DISTRIBUTION WIDTH 12.3 % (11.0-15.5)
--- NOTE | 2020-06-01 08:20 | NUR ---
AAOx4. AWAKE IN BED LYING IN PRONE POSITION AT THIS TIME IN NO APPARENT DISTRESS. VSS. ISOLATION PRECAUTIONS MAINTAINED. DENIES ANY PAIN/DISCOMFORT. SR ON TELE. RESPIRATIONS EVEN AND UNLABORED AT REST. O2 VIA NRB AT 15L, O2 SAT 97%. DESATS WITH REPOSITIONING. REMDESIVIR THERAPY ADMINISTERED. CONTINUOUS MONITORING ONGOING. SAFETY MEASURES IN PLACE.
[2020-06-01] MEDS: ASCORBIC ACID 500 MG TAB PO SCH (08:24)
[2020-06-01] MEDS: FAMOTIDINE/PF 20 MG/2 ML VIAL IV SCH ×2 (08:25→20:51)
[2020-06-01] MEDS: ENOXAPARIN SODIUM 40 MG/0.4 ML SYRINGE SQ SCH ×2 (08:25→20:52)
[2020-06-01] MEDS: METHYLPREDNISOLONE SOD SUCC 125MG/2ML VIAL IVP SCH ×3 (08:25→20:52)
[2020-06-01] MEDS: INSULIN GLARGINE 100 UNITS/ML 10 ML VIAL SQ SCH ×2 (08:27→21:20)
[2020-06-01 08:55] LABS: CARBON DIOXIDE 32 mmol/L (21-32); CHLORIDE 100 mmol/L (101-111); CREATININE 0.6 mg/dL (0.5-1.5); GLOMERULAR FILTR. RATE CALC 149 mL/min (>60); GLUCOSE,RANDOM 125 mg/dL (70-105); LACTATE DEHYDROGENASE 277 U/L (81-234); SODIUM SERUM 137 mmol/L (136-145); UREA NITROGEN, BLOOD 26 mg/dL (7-18)
[2020-06-01 12:00] VITALS: BP 126/87
[2020-06-01] MEDS: ZINC SULFATE 220 CAPSULE PO SCH (12:21)
[2020-06-01 16:00] VITALS: BP 134/85
[2020-06-01] MEDS ORDERED: REMDESIVIR (EUA) 520 100 MG VIAL IV ONE (16:00)
[2020-06-01] MEDS: REMDESIVIR (EUA) 520 100 MG in SODIUM CHLORIDE 0.9% 250 ML IV SCH (16:08)
--- NOTE | 2020-06-01 18:45 | NUR ---
RESTING QUIETLY IN BED AT THIS TIME IN NO APPARENT DISTRESS, 15L VIA NRB, O2 SAT 98%. ISOLATION PRECAUTIONS MAINTAINED. REMDESIVIR THERAPY ADMINISTERED. CONTINUOUS MONITORING ONGOING. SAFETY MEASURES IN PLACE.
[2020-06-01 19:00] VITALS: BP 130/72
--- NOTE | 2020-06-01 20:00 | NUR ---
assessment note awake, alert,ox3, on NRB on 100 %, sat 91 %, placed patient on prone position, oxygen saturation up to 97 %, teach patient plan of care and expected outcome, patient verbalizes understanding
--- NOTE | 2020-06-01 21:00 | NUR ---
nursing obs resting on side, saturation 97 %, nrb intact with same setting, call christopher at reach
[2020-06-02] VITALS: BP 127/76
[2020-06-02 04:00] VITALS: BP 127/84
[2020-06-02] MEDS: INSULIN HUMULIN R 100 UNIT/ML 3ML SQ SCH ×7 (06:04→21:13)
[2020-06-02] MEDS: INSULIN GLARGINE 100 UNITS/ML 10 ML VIAL SQ SCH ×2 (06:10→21:14)
[2020-06-02 07:56] LABS: BASOPHILS % (AUTO) 0.2 % (0.0-5.0); HEMATOCRIT 41.2 % (42-54); LYMPHOCYTES % (AUTO) 1.9 % (21.0-51.0); MEAN CORPUSCULAR HEMOGLOBIN 33.3 pg (27.0-33.0); MEAN CORPUSCULAR HGB CONC 35.2 g/dL (32.0-36.0); MEAN CORPUSCULAR VOLUME 94.5 fL (79-99); MONOCYTES % (AUTO) 4.6 % (3.0-13.0); NEUTROPHILS % (AUTO) 92.2 % (40.0-77.0); PLATELET COUNT (AUTO) 221 K/uL (130-400); RED BLOOD CELL COUNT(AUTO) 4.36 MIL/uL (4.50-6.20); RED CELL DISTRIBUTION WIDTH 12.1 % (11.0-15.5)
[2020-06-02 08:00] VITALS: BP 121/72
[2020-06-02 08:24] LABS: CARBON DIOXIDE 34 mmol/L (21-32); CHLORIDE 99 mmol/L (101-111); CREATININE 0.7 mg/dL (0.5-1.5); GLOMERULAR FILTR. RATE CALC 124 mL/min (>60); GLUCOSE,RANDOM 204 mg/dL (70-105); LACTATE DEHYDROGENASE 354 U/L (81-234); POTASSIUM 4.7 mmol/L (3.5-5.1); SODIUM SERUM 136 mmol/L (136-145); UREA NITROGEN, BLOOD 29 mg/dL (7-18)
[2020-06-02] MEDS: ASCORBIC ACID 500 MG TAB PO SCH (08:41)
[2020-06-02] MEDS: METHYLPREDNISOLONE SOD SUCC 125MG/2ML VIAL IVP SCH ×3 (08:41→21:10)
[2020-06-02] MEDS: FAMOTIDINE/PF 20 MG/2 ML VIAL IV SCH ×2 (08:41→21:10)
[2020-06-02] MEDS: ENOXAPARIN SODIUM 40 MG/0.4 ML SYRINGE SQ SCH (08:45)
[2020-06-02 12:00] VITALS: BP 120/72
--- NOTE | 2020-06-02 13:19 | NUR ---
ASSISTED PATIENT TO PRONE POSITION. O2 AT 93% NRB
[2020-06-02] MEDS: ZINC SULFATE 220 CAPSULE PO SCH (13:52)
[2020-06-02] MEDS: CEFEPIME HCL 2 GM VIAL IVP SCH ×2 (13:53→21:10)
[2020-06-02] MEDS: REMDESIVIR (EUA) 520 100 MG in SODIUM CHLORIDE 0.9% 250 ML IV SCH (14:32)
[2020-06-02 16:00] VITALS: BP 127/83
[2020-06-02] MEDS ORDERED: REMDESIVIR (EUA) 520 100 MG VIAL IV ONE (16:00)
[2020-06-02 19:00] VITALS: BP 125/80
[2020-06-03] VITALS: BP 133/83
[2020-06-03 04:00] VITALS: BP 133/86
[2020-06-03] MEDS: INSULIN HUMULIN R 100 UNIT/ML 3ML SQ SCH ×7 (05:31→20:42)
[2020-06-03] MEDS: INSULIN GLARGINE 100 UNITS/ML 10 ML VIAL SQ SCH ×2 (06:40→20:43)
[2020-06-03 07:49] LABS: BASOPHILS % (AUTO) 0.1 % (0.0-5.0); HEMATOCRIT 41.6 % (42-54); LYMPHOCYTES % (AUTO) 1.7 % (21.0-51.0); MEAN CORPUSCULAR HEMOGLOBIN 32.9 pg (27.0-33.0); MEAN CORPUSCULAR HGB CONC 34.4 g/dL (32.0-36.0); MEAN CORPUSCULAR VOLUME 95.9 fL (79-99); MONOCYTES % (AUTO) 4.6 % (3.0-13.0); NEUTROPHILS % (AUTO) 92.3 % (40.0-77.0); PLATELET COUNT (AUTO) 207 K/uL (130-400); RED BLOOD CELL COUNT(AUTO) 4.34 MIL/uL (4.50-6.20); RED CELL DISTRIBUTION WIDTH 12.3 % (11.0-15.5); WHITE BLOOD COUNT (AUTO) 19.2 K/uL (4.8-10.8)
[2020-06-03 08:37] LABS: BILIRUBIN,TOTAL 0.8 mg/dL (0.2-1.0); CREATININE 0.6 mg/dL (0.5-1.5); CRP QUANTITATIVE 50.3 mg/L (0.00-9.0); POTASSIUM 4.2 mmol/L (3.5-5.1); TOTAL PROTEIN, SERUM 5.9 g/dL (6.0-8.3)
[2020-06-03 08:44] VITALS: BP 131/85
[2020-06-03] MEDS: FAMOTIDINE/PF 20 MG/2 ML VIAL IV SCH ×2 (08:49→20:13)
[2020-06-03] MEDS: METHYLPREDNISOLONE SOD SUCC 125MG/2ML VIAL IVP SCH ×3 (08:49→20:14)
[2020-06-03] MEDS: ASCORBIC ACID 500 MG TAB PO SCH (08:49)
[2020-06-03] MEDS: CEFEPIME HCL 2 GM VIAL IVP SCH ×2 (08:50→20:13)
[2020-06-03] MEDS: ENOXAPARIN SODIUM 40 MG/0.4 ML SYRINGE SQ SCH (08:50)
[2020-06-03] MEDS ORDERED: METOPROLOL TARTRATE 1 MG/ML 5ML VIAL IV SCH (09:15)
[2020-06-03 09:22] LABS: ABG BASE EXCESS 3.4 mmol/L (-2.0-3.0); ABG HCO3 27.3 mmol/L (21.0-28.0); ABG OXYGEN SATURATION 84.2 % (95.0-99.0); ABG PCO2 39 mmHg (35-48)
[2020-06-03 11:32] LABS: ABG BASE EXCESS 2.7 mmol/L (-2.0-3.0); ABG HCO3 26.9 mmol/L (21.0-28.0); ABG OXYGEN SATURATION 85.8 % (95.0-99.0); ABG PCO2 40 mmHg (35-48)
[2020-06-03 11:57] VITALS: BP 138/80
[2020-06-03] MEDS: LINEZOLID 600 MG/ISO-OSM 300 ML IV SCH ×2 (12:40→23:10)
[2020-06-03] MEDS: ZINC SULFATE 220 CAPSULE PO SCH (12:40)
[2020-06-03] MEDS ORDERED: METHYLPREDNISOLONE SOD SUCC 125MG/2ML VIAL IVP SCH (14:00)
[2020-06-03 16:07] VITALS: BP 124/77
--- NOTE | 2020-06-03 18:00 | NUR ---
note PATIENT HAS BEEN SATURATING IN THE HIGH 90'S THROUGHOUT THE DAY SINCE THIS AM WHEN HE CHANGED HIS POSITION TO PRONE. INITIALLY WAS INFORMED BY NIGHT NURSE HES SATS WERE 88-90% O NRB. DR ALAN ROUNDED AND ASKED HIM TO PRONE AND ORDERED CPAP. WHEN CPAP WAS GONG TO BE STARTED HE WAS ALREADY SATS IN 95%. HE TRIED CPAP TWICE BUT BOTH TIMES HE COULD NOT TOLERATE WITH SATS DROPPING TO 85-88%. WAS CHANGED BACK TO NRB 100% AND SATS HAVE BEEN 8-100%. ABG'S WERE DRAWN THIS AM AND PO2 WAS LOW AND RECHECKED LATER WITH PO2 REMAINING LOW IN THE 4O'S. HE HAS BEEN SLEEPING. TRIED TO HAVE BM BUT COULD NOT. WILL ASK MD FOR PRN MEDS FOR THAT.
[2020-06-03] MEDS ORDERED: SENNOSIDES 8.6 MG TABLET PO PRN (19:00)
[2020-06-03] MEDS ORDERED: POLYETHYLENE GLYCOL 3350 17 GM POWD.PACK PO SCH (20:00)
[2020-06-03] MEDS ORDERED: SENNOSIDES 8.6 MG TABLET PO ONE (20:00)
[2020-06-03 21:14] VITALS: BP 131/82
[2020-06-04 00:10] VITALS: BP 127/87
[2020-06-04 03:47] VITALS: BP 102/56
--- NOTE | 2020-06-04 05:00 | NUR ---
assessment Pt. alert and oriented times 4 no complaints of any pain. patient has been lying prone almost all night. oxygen saturation has been in the upper 90's all night. pt. voided per urinal. vitals stable will continue to monitor.
[2020-06-04] MEDS: INSULIN HUMULIN R 100 UNIT/ML 3ML SQ SCH ×7 (05:17→21:27)
[2020-06-04] MEDS: INSULIN GLARGINE 100 UNITS/ML 10 ML VIAL SQ SCH ×2 (05:18→21:27)
[2020-06-04] MEDS: METHYLPREDNISOLONE SOD SUCC 125MG/2ML VIAL IVP SCH ×3 (05:20→21:20)
[2020-06-04 06:35] LABS: BASOPHILS % (AUTO) 0.1 % (0.0-5.0); MEAN CORPUSCULAR HEMOGLOBIN 32.9 pg (27.0-33.0); MEAN CORPUSCULAR HGB CONC 34.3 g/dL (32.0-36.0); MEAN CORPUSCULAR VOLUME 95.9 fL (79-99); MONOCYTES % (AUTO) 3.9 % (3.0-13.0); NEUTROPHILS % (AUTO) 92.7 % (40.0-77.0); PLATELET COUNT (AUTO) 193 K/uL (130-400); RED BLOOD CELL COUNT(AUTO) 4.59 MIL/uL (4.50-6.20); RED CELL DISTRIBUTION WIDTH 12.4 % (11.0-15.5); WHITE BLOOD COUNT (AUTO) 20.2 K/uL (4.8-10.8)
[2020-06-04 06:56] LABS: CREATININE 0.6 mg/dL (0.5-1.5); CRP QUANTITATIVE 45.1 mg/L (0.00-9.0); POTASSIUM 4.2 mmol/L (3.5-5.1)
[2020-06-04] MEDS: CEFEPIME HCL 2 GM VIAL IVP SCH ×2 (08:54→21:20)
[2020-06-04] MEDS: ASCORBIC ACID 500 MG TAB PO SCH (08:55)
[2020-06-04] MEDS: POLYETHYLENE GLYCOL 3350 17 GM POWD.PACK PO SCH (08:55)
[2020-06-04] MEDS: FAMOTIDINE/PF 20 MG/2 ML VIAL IV SCH ×2 (08:55→21:21)
[2020-06-04] MEDS: ENOXAPARIN SODIUM 40 MG/0.4 ML SYRINGE SQ SCH (08:56)
[2020-06-04 09:21] VITALS: BP 129/69
[2020-06-04 11:45] VITALS: BP 145/99
[2020-06-04] MEDS: ACETYLCYSTEINE 600 MG CAPSULE PO SCH ×2 (12:18→21:20)
[2020-06-04] MEDS: ZINC SULFATE 220 CAPSULE PO SCH (12:18)
[2020-06-04] MEDS: LINEZOLID 600 MG/ISO-OSM 300 ML IV SCH (14:57)
--- NOTE | 2020-06-04 15:00 | NUR ---
Sinus Tachycardia Telemetry reported sinus tachycardia between 111's through 120 sustained. O2 Sa between 97% on 15L NRB. No distress noted, patient reports having eaten dinner and occasionally removed mask to take bites. Assisted patient to prone position. Hr at 104, O2 Sa 100% on 15L. Bed low, locked, call christopher within reach. Notified Dr. Hoff of tachycardic episode. No new orders received.
[2020-06-04 16:41] VITALS: BP 131/76
[2020-06-04 20:00] VITALS: BP 135/80
[2020-06-05] VITALS: BP 120/78
[2020-06-05] MEDS: LINEZOLID 600 MG/ISO-OSM 300 ML IV SCH ×3 (01:06→23:07)
[2020-06-05 04:00] VITALS: BP 118/78
[2020-06-05 05:17] LABS: BASOPHILS % (AUTO) 0.1 % (0.0-5.0); LYMPHOCYTES % (AUTO) 1.8 % (21.0-51.0); MEAN CORPUSCULAR HEMOGLOBIN 32.8 pg (27.0-33.0); MEAN CORPUSCULAR HGB CONC 34.5 g/dL (32.0-36.0); MONOCYTES % (AUTO) 3.3 % (3.0-13.0); NEUTROPHILS % (AUTO) 93.7 % (40.0-77.0); PLATELET COUNT (AUTO) 152 K/uL (130-400); RED BLOOD CELL COUNT(AUTO) 4.63 MIL/uL (4.50-6.20); RED CELL DISTRIBUTION WIDTH 12.6 % (11.0-15.5); WHITE BLOOD COUNT (AUTO) 22.8 K/uL (4.8-10.8)
[2020-06-05 05:42] LABS: ALANINE AMINOTRANSFERASE 164 U/L (12-78); ALBUMIN 2.1 g/dL (3.5-5.0); ASPARTATE AMINOTRANSFERASE 37 U/L (10-37); BILIRUBIN,TOTAL 0.8 mg/dL (0.2-1.0); CARBON DIOXIDE 32 mmol/L (21-32); CHLORIDE 99 mmol/L (101-111); CREATININE 0.7 mg/dL (0.5-1.5); GLOMERULAR FILTR. RATE CALC 124 mL/min (>60); GLUCOSE,RANDOM 147 mg/dL (70-105); LACTATE DEHYDROGENASE 306 U/L (81-234); POTASSIUM 4.6 mmol/L (3.5-5.1); SODIUM SERUM 136 mmol/L (136-145); UREA NITROGEN, BLOOD 36 mg/dL (7-18)
[2020-06-05] MEDS: INSULIN HUMULIN R 100 UNIT/ML 3ML SQ SCH ×7 (05:55→21:44)
[2020-06-05] MEDS: METHYLPREDNISOLONE SOD SUCC 125MG/2ML VIAL IVP SCH ×2 (05:55→14:07)
[2020-06-05] MEDS: INSULIN GLARGINE 100 UNITS/ML 10 ML VIAL SQ SCH ×2 (05:56→09:54)
[2020-06-05 08:00] VITALS: BP 140/94
--- NOTE | 2020-06-05 08:00 | NUR ---
AM SHIFT ASSESSMENT.
--- NOTE | 2020-06-05 09:00 | NUR ---
NEW IV START,22G LT. HAND.
[2020-06-05] MEDS: POLYETHYLENE GLYCOL 3350 17 GM POWD.PACK PO SCH (09:09)
[2020-06-05] MEDS: ENOXAPARIN SODIUM 40 MG/0.4 ML SYRINGE SQ SCH ×2 (09:09→21:45)
[2020-06-05] MEDS: CEFEPIME HCL 2 GM VIAL IVP SCH ×2 (09:09→21:42)
[2020-06-05] MEDS: ACETYLCYSTEINE 600 MG CAPSULE PO SCH ×2 (09:09→21:42)
[2020-06-05] MEDS: FAMOTIDINE/PF 20 MG/2 ML VIAL IV SCH ×2 (09:09→21:42)
[2020-06-05] MEDS: ASCORBIC ACID 500 MG TAB PO SCH (09:09)
[2020-06-05 11:00] VITALS: BP 122/88
[2020-06-05] MEDS: ZINC SULFATE 220 CAPSULE PO SCH (12:35)
[2020-06-05 16:00] VITALS: BP 119/76
[2020-06-05 20:00] VITALS: BP 129/86
[2020-06-05] MEDS: METHYLPREDNISOLONE SOD SUCC 40MG/ML 1ML IVP SCH (21:45)
[2020-06-06] VITALS: BP 121/72
[2020-06-06 04:00] VITALS: BP 121/85
[2020-06-06 05:28] LABS: BASOPHILS % (AUTO) 0.1 % (0.0-5.0); HEMATOCRIT 42.9 % (42-54); LYMPHOCYTES % (AUTO) 2.6 % (21.0-51.0); MEAN CORPUSCULAR HEMOGLOBIN 32.9 pg (27.0-33.0); MEAN CORPUSCULAR VOLUME 96.6 fL (79-99); MONOCYTES % (AUTO) 4.1 % (3.0-13.0); NEUTROPHILS % (AUTO) 92.2 % (40.0-77.0); PLATELET COUNT (AUTO) 149 K/uL (130-400); RED BLOOD CELL COUNT(AUTO) 4.44 MIL/uL (4.50-6.20); RED CELL DISTRIBUTION WIDTH 12.5 % (11.0-15.5)
[2020-06-06] MEDS: METHYLPREDNISOLONE SOD SUCC 40MG/ML 1ML IVP SCH ×3 (05:40→21:21)
[2020-06-06 05:49] LABS: ALANINE AMINOTRANSFERASE 114 U/L (12-78); ASPARTATE AMINOTRANSFERASE 21 U/L (10-37); BILIRUBIN,TOTAL 0.9 mg/dL (0.2-1.0); CARBON DIOXIDE 34 mmol/L (21-32); CHLORIDE 99 mmol/L (101-111); CREATININE 0.7 mg/dL (0.5-1.5); GLOMERULAR FILTR. RATE CALC 124 mL/min (>60); GLUCOSE,RANDOM 120 mg/dL (70-105); LACTATE DEHYDROGENASE 300 U/L (81-234); POTASSIUM 4.7 mmol/L (3.5-5.1); SODIUM SERUM 137 mmol/L (136-145); TOTAL PROTEIN, SERUM 6.1 g/dL (6.0-8.3); UREA NITROGEN, BLOOD 35 mg/dL (7-18)
[2020-06-06] MEDS: INSULIN HUMULIN R 100 UNIT/ML 3ML SQ SCH ×7 (05:51→21:00)
[2020-06-06 08:00] VITALS: BP 127/71
--- NOTE | 2020-06-06 08:00 | NUR ---
AM SHIFT ASSESSMENT, C/O OF NOT BEING ABLE TO BREATHE AND WANTS THE 02 HIGHER, EXPLAINED TO HIM IT WAS AT 15LITERS WHICH IS HIGH WE CAN GOBUT DOES NOT BELIEVE US, RESP ALSO TALKED TO HIM.
[2020-06-06] MEDS: CEFEPIME HCL 2 GM VIAL IVP SCH ×2 (08:29→21:21)
[2020-06-06] MEDS: INSULIN GLARGINE 100 UNITS/ML 10 ML VIAL SQ SCH ×2 (08:31→21:24)
[2020-06-06] MEDS: FAMOTIDINE/PF 20 MG/2 ML VIAL IV SCH ×2 (08:32→21:21)
[2020-06-06] MEDS: ACETYLCYSTEINE 600 MG CAPSULE PO SCH ×2 (08:32→21:20)
[2020-06-06] MEDS: POLYETHYLENE GLYCOL 3350 17 GM POWD.PACK PO SCH (08:33)
[2020-06-06] MEDS: ASCORBIC ACID 500 MG TAB PO SCH (08:34)
[2020-06-06] MEDS: ENOXAPARIN SODIUM 40 MG/0.4 ML SYRINGE SQ SCH ×2 (08:34→21:23)
--- NOTE | 2020-06-06 10:00 | NUR ---
STARTED ON HIGH DREW 02 PT SATS ARE GOING DOWN. HR IN THE 120 TO 150 AND SAME WAS REPORTED PER NIGHT NURSE.
[2020-06-06] MEDS ORDERED: LORAZEPAM 2 MG/ML 1 ML VIAL IM PRN (11:00)
[2020-06-06] MEDS: ZINC SULFATE 220 CAPSULE PO SCH (11:09)
[2020-06-06] MEDS: LINEZOLID 600 MG/ISO-OSM 300 ML IV SCH ×2 (11:09→21:27)
[2020-06-06] MEDS ORDERED: LORAZEPAM 2 MG/ML 1 ML VIAL IVP PRN (11:30)
[2020-06-06 12:00] VITALS: BP 122/83
[2020-06-06] MEDS ORDERED: COLCHICINE 0.6 MG TABLET PO SCH (15:45)
[2020-06-06 16:00] VITALS: BP 122/95
--- NOTE | 2020-06-06 18:00 | NUR ---
HR AT 95 AND SAT 95 ALSO, RESTING A LITTLE EASIER.
[2020-06-06 20:47] VITALS: BP 114/80
[2020-06-06] MEDS: COLCHICINE 0.6 MG TABLET PO SCH (21:20)
[2020-06-07 00:17] VITALS: BP 123/82
[2020-06-07 03:48] VITALS: BP 106/62
[2020-06-07] MEDS: METHYLPREDNISOLONE SOD SUCC 40MG/ML 1ML IVP SCH ×3 (06:09→21:39)
[2020-06-07] MEDS: INSULIN GLARGINE 100 UNITS/ML 10 ML VIAL SQ SCH ×2 (06:14→21:35)
[2020-06-07 06:17] LABS: BASOPHILS % (AUTO) 0.1 % (0.0-5.0); LYMPHOCYTES % (AUTO) 2.9 % (21.0-51.0); MEAN CORPUSCULAR HEMOGLOBIN 32.8 pg (27.0-33.0); MEAN CORPUSCULAR VOLUME 96.4 fL (79-99); MONOCYTES % (AUTO) 3.1 % (3.0-13.0); NEUTROPHILS % (AUTO) 93.1 % (40.0-77.0); PLATELET COUNT (AUTO) 102 K/uL (130-400); RED BLOOD CELL COUNT(AUTO) 4.67 MIL/uL (4.50-6.20); RED CELL DISTRIBUTION WIDTH 12.7 % (11.0-15.5); WHITE BLOOD COUNT (AUTO) 24.1 K/uL (4.8-10.8)
[2020-06-07 06:49] LABS: ALBUMIN 2.1 g/dL (3.5-5.0); CREATININE 0.7 mg/dL (0.5-1.5); CRP QUANTITATIVE 43.5 mg/L (0.00-9.0); POTASSIUM 5.4 mmol/L (3.5-5.1)
[2020-06-07] MEDS: INSULIN HUMULIN R 100 UNIT/ML 3ML SQ SCH ×7 (07:22→21:34)
[2020-06-07 08:00] VITALS: BP 135/93
[2020-06-07] MEDS ORDERED: IVERMECTIN 3 MG TAB PO SCH (09:15)
[2020-06-07] MEDS: FAMOTIDINE/PF 20 MG/2 ML VIAL IV SCH ×2 (09:47→21:36)
[2020-06-07] MEDS: ASCORBIC ACID 500 MG TAB PO SCH (09:48)
[2020-06-07] MEDS: POLYETHYLENE GLYCOL 3350 17 GM POWD.PACK PO SCH (09:48)
[2020-06-07] MEDS: COLCHICINE 0.6 MG TABLET PO SCH ×2 (09:48→21:36)
[2020-06-07] MEDS: ACETYLCYSTEINE 600 MG CAPSULE PO SCH ×2 (09:48→21:36)
[2020-06-07] MEDS: CEFEPIME HCL 2 GM VIAL IVP SCH ×2 (09:48→21:36)
[2020-06-07] MEDS: ENOXAPARIN SODIUM 40 MG/0.4 ML SYRINGE SQ SCH ×2 (09:50→21:38)
[2020-06-07 12:00] VITALS: BP 136/86
[2020-06-07] MEDS: ZINC SULFATE 220 CAPSULE PO SCH (12:22)
[2020-06-07] MEDS: LINEZOLID 600 MG/ISO-OSM 300 ML IV SCH ×2 (12:22→21:35)
--- NOTE | 2020-06-07 13:00 | NUR ---
PT IS REALLY SOB. DR ANGELITO Mackey NOTIFIED AND WENT TO BEDSIDE TO ASSESS PT.
[2020-06-07 16:00] VITALS: BP 136/82
[2020-06-07 19:30] VITALS: BP 136/73
[2020-06-08] VITALS (54 sets, daily range): BP systolic 84–159; BP diastolic 61–101
--- NOTE | 2020-06-08 02:10 | NUR ---
PLASMA STARTED TRANSFUSION OF PLASMA, Pt TOLERATING WELL. WAS SUPINE THEN PRONE, PT USING ACCESSORY MUSCLES. OXYGEN AT 87-89% RESPIRATORY [facility] WAS CALLED. [facility] ASSESSING PT. BP ELEVATED D/T PRONE POSITION.
--- NOTE | 2020-06-08 02:55 | NUR ---
[facility] RESPIRATORY TRIED TO PLACE CPAP BUT PT IS REFUSING. PT CONTINUES ON HIGH FLOW NC 60L, 100% AND NRB 100%, PT AT 90% O2
--- NOTE | 2020-06-08 03:15 | NUR ---
COMPLETED PLASMA NO ADVERSE REACTIONS. BP 150/61, TEMP 97.4 ORAL, RESP 24, HEART RATE 110. PT HAS BEEN FEELING ANXIOUS.
[2020-06-08 04:21] LABS: BASOPHILS % (AUTO) 0.1 % (0.0-5.0); HEMATOCRIT 41.1 % (42-54); LYMPHOCYTES % (AUTO) 1.1 % (21.0-51.0); MEAN CORPUSCULAR HEMOGLOBIN 32.8 pg (27.0-33.0); MEAN CORPUSCULAR HGB CONC 34.1 g/dL (32.0-36.0); MEAN CORPUSCULAR VOLUME 96.3 fL (79-99); MONOCYTES % (AUTO) 3.2 % (3.0-13.0); NEUTROPHILS % (AUTO) 94.6 % (40.0-77.0); PLATELET COUNT (AUTO) 89 K/uL (130-400); RED BLOOD CELL COUNT(AUTO) 4.27 MIL/uL (4.50-6.20); RED CELL DISTRIBUTION WIDTH 12.5 % (11.0-15.5); WHITE BLOOD COUNT (AUTO) 21.7 K/uL (4.8-10.8)
[2020-06-08 04:32] LABS: ALANINE AMINOTRANSFERASE 95 U/L (12-78); ALBUMIN 2.3 g/dL (3.5-5.0); ASPARTATE AMINOTRANSFERASE 33 U/L (10-37); BILIRUBIN,TOTAL 1.2 mg/dL (0.2-1.0); CARBON DIOXIDE 34 mmol/L (21-32); CHLORIDE 97 mmol/L (101-111); CREATININE 0.7 mg/dL (0.5-1.5); GLOMERULAR FILTR. RATE CALC 124 mL/min (>60); GLUCOSE,RANDOM 87 mg/dL (70-105); LACTATE DEHYDROGENASE 486 U/L (81-234); POTASSIUM 5.2 mmol/L (3.5-5.1); SODIUM SERUM 133 mmol/L (136-145); TOTAL PROTEIN, SERUM 6.4 g/dL (6.0-8.3); UREA NITROGEN, BLOOD 35 mg/dL (7-18)
[2020-06-08] MEDS: METHYLPREDNISOLONE SOD SUCC 40MG/ML 1ML IVP SCH ×3 (05:26→20:44)
[2020-06-08] MEDS: INSULIN HUMULIN R 100 UNIT/ML 3ML SQ SCH ×7 (05:26→21:03)
[2020-06-08] MEDS: INSULIN GLARGINE 100 UNITS/ML 10 ML VIAL SQ SCH ×2 (07:21→20:49)
[2020-06-08] MEDS: CEFEPIME HCL 2 GM VIAL IVP SCH ×2 (08:38→20:44)
[2020-06-08] MEDS: COLCHICINE 0.6 MG TABLET PO SCH ×2 (08:38→20:44)
[2020-06-08] MEDS: ENOXAPARIN SODIUM 40 MG/0.4 ML SYRINGE SQ SCH ×2 (08:38→20:45)
[2020-06-08] MEDS: POLYETHYLENE GLYCOL 3350 17 GM POWD.PACK PO SCH (08:38)
[2020-06-08] MEDS: ACETYLCYSTEINE 600 MG CAPSULE PO SCH ×2 (08:38→20:44)
[2020-06-08] MEDS: FAMOTIDINE/PF 20 MG/2 ML VIAL IV SCH ×2 (08:39→20:44)
[2020-06-08] MEDS: ASCORBIC ACID 500 MG TAB PO SCH (08:39)
[2020-06-08] MEDS: ZINC SULFATE 220 CAPSULE PO SCH (12:59)
--- NOTE | 2020-06-08 14:00 | NUR ---
PT HAS INCREASED HR IN THE 120'S UPON ASSESSMENT PT IS TACHYPNEIC USING ACCESSORY MUSCLES DR.ROMAN Farnsworth AT BEDSIDE TO ASSESS PT. DR GARNER CALLED AND NOTIFIED OF PT CONDITION. NEW ORDER TO INTUBATE PT AND TRANSFER TO ICU. CHARGE NURSE JUAN PABLO ARRANGING SURGICAL APPLIANCE FITTER TO COME INTUBATE.
[2020-06-08] MEDS ORDERED: MIDAZOLAM HCL 1 MG/ML 2ML VIAL ONE (14:26)
[2020-06-08] MEDS ORDERED: PROPOFOL 1000 MG/100 ML 100 ML IV ONE ×2 (14:29→22:26)
[2020-06-08] MEDS ORDERED: FENTANYL CITRATE PF 50 MCG/1 ML 2ML VIAL ONE (14:43)
[2020-06-08] MEDS ORDERED: LABETALOL 20 MG/4 ML DISP.SYRIN IV SCH (14:45)
[2020-06-08] MEDS ORDERED: FENTANYL CITRATE PF 50 MCG/1 ML 2ML VIAL IVP SCH (14:45)
[2020-06-08] MEDS ORDERED: MIDAZOLAM 50MG-0.9% NS 50ML 50 ML BAG IV SCH (15:30)
[2020-06-08] MEDS ORDERED: FENTANYL 2500MCG+NS 250ML 250 ML IV ONE (15:30)
[2020-06-08] MEDS ORDERED: MIDAZOLAM 50MG-0.9% NS 50ML 50 ML IV SCH (16:15)
[2020-06-08 17:15] LABS: ABG BASE EXCESS 4.3 mmol/L (-2.0-3.0); ABG OXYGEN SATURATION 98.5 % (95.0-99.0); ABG PCO2 61 mmHg (35-48)
[2020-06-08] MEDS ORDERED: NOREPINEPHRINE 4MG/NS 250ML 250 ML IV ONE (18:29)
[2020-06-09] VITALS (51 sets, daily range): BP systolic 71–139; BP diastolic 50–82
[2020-06-09 05:27] LABS: BASOPHILS % (AUTO) 0.1 % (0.0-5.0); EOSINOPHILS % (AUTO) 0.1 % (0.0-8.0); HEMATOCRIT 38.1 % (42-54); MEAN CORPUSCULAR HEMOGLOBIN 32.7 pg (27.0-33.0); MEAN CORPUSCULAR HGB CONC 33.1 g/dL (32.0-36.0); MONOCYTES % (AUTO) 2.2 % (3.0-13.0); NEUTROPHILS % (AUTO) 94.4 % (40.0-77.0); PLATELET COUNT (AUTO) 68 K/uL (130-400); RED BLOOD CELL COUNT(AUTO) 3.85 MIL/uL (4.50-6.20); RED CELL DISTRIBUTION WIDTH 12.8 % (11.0-15.5); WHITE BLOOD COUNT (AUTO) 19.6 K/uL (4.8-10.8)
[2020-06-09] MEDS: METHYLPREDNISOLONE SOD SUCC 40MG/ML 1ML IVP SCH ×3 (06:00→20:46)
[2020-06-09 06:11] LABS: ALBUMIN 2.1 g/dL (3.5-5.0); BILIRUBIN,TOTAL 0.7 mg/dL (0.2-1.0); CREATININE 0.3 mg/dL (0.5-1.5); CRP QUANTITATIVE 16.6 mg/L (0.00-9.0); POTASSIUM 5.1 mmol/L (3.5-5.1); TOTAL PROTEIN, SERUM 5.7 g/dL (6.0-8.3)
[2020-06-09 07:22] LABS: ABG BASE EXCESS 4.2 mmol/L (-2.0-3.0); ABG HCO3 33.5 mmol/L (21.0-28.0); ABG OXYGEN SATURATION 99.5 % (95.0-99.0); ABG PCO2 72 mmHg (35-48)
[2020-06-09] MEDS: INSULIN HUMULIN R 100 UNIT/ML 3ML SQ SCH ×4 (07:30→11:30)
[2020-06-09] MEDS: INSULIN GLARGINE 100 UNITS/ML 10 ML VIAL SQ SCH (07:30)
[2020-06-09] MEDS: POLYETHYLENE GLYCOL 3350 17 GM POWD.PACK PO SCH (09:00)
[2020-06-09] MEDS: FAMOTIDINE/PF 20 MG/2 ML VIAL IV SCH ×2 (10:04→20:47)
[2020-06-09] MEDS: CEFEPIME HCL 2 GM VIAL IVP SCH ×2 (10:04→20:46)
[2020-06-09] MEDS: ACETYLCYSTEINE 600 MG CAPSULE PO SCH (10:04)
[2020-06-09] MEDS: ZINC SULFATE 220 CAPSULE PO SCH (10:04)
[2020-06-09] MEDS: ASCORBIC ACID 500 MG TAB PO SCH (10:04)
[2020-06-09] MEDS: COLCHICINE 0.6 MG TABLET PO SCH ×2 (10:04→20:47)
[2020-06-09] MEDS: ENOXAPARIN SODIUM 40 MG/0.4 ML SYRINGE SQ SCH ×2 (10:04→21:00)
[2020-06-09] MEDS ORDERED: NOREPINEPHRINE 4MG/NS 250ML 250 ML IV ONE (11:25)
[2020-06-09 14:34] LABS: ABG BASE EXCESS 5.2 mmol/L (-2.0-3.0); ABG HCO3 31.7 mmol/L (21.0-28.0); ABG OXYGEN SATURATION 96.4 % (95.0-99.0); ABG PCO2 54 mmHg (35-48)
[2020-06-09] MEDS: PROPOFOL 1000 MG/100 ML IV PRN (15:15)
[2020-06-09] MEDS ORDERED: NOREPINEPHRINE 4MG/NS 250ML 250 ML IV SCH (15:30)
[2020-06-09] MEDS ORDERED: SODIUM CHLORIDE 0.9% 1000ML 2,000 ML IV ONE (16:23)
[2020-06-09 16:36] LABS: BASOPHILS % (AUTO) 0.1 % (0.0-5.0); EOSINOPHILS % (AUTO) 0.5 % (0.0-8.0); HEMATOCRIT 34.3 % (42-54); LYMPHOCYTES % (AUTO) 5.8 % (21.0-51.0); MEAN CORPUSCULAR HEMOGLOBIN 32.9 pg (27.0-33.0); MEAN CORPUSCULAR HGB CONC 32.7 g/dL (32.0-36.0); MEAN CORPUSCULAR VOLUME 100.9 fL (79-99); NEUTROPHILS % (AUTO) 89.8 % (40.0-77.0); PLATELET COUNT (AUTO) 68 K/uL (130-400); RED CELL DISTRIBUTION WIDTH 12.8 % (11.0-15.5); WHITE BLOOD COUNT (AUTO) 17.5 K/uL (4.8-10.8)
[2020-06-09] MEDS ORDERED: PHARMACY COMMUNICATION MISC SCH (20:30)
[2020-06-10] VITALS (33 sets, daily range): BP systolic 95–136; BP diastolic 58–86
[2020-06-10 05:16] LABS: BASOPHILS % (AUTO) 0.1 % (0.0-5.0); HEMATOCRIT 31.3 % (42-54); LYMPHOCYTES % (AUTO) 3.1 % (21.0-51.0); MEAN CORPUSCULAR HEMOGLOBIN 32.8 pg (27.0-33.0); MEAN CORPUSCULAR HGB CONC 33.5 g/dL (32.0-36.0); MEAN CORPUSCULAR VOLUME 97.8 fL (79-99); MONOCYTES % (AUTO) 2.5 % (3.0-13.0); NEUTROPHILS % (AUTO) 93.7 % (40.0-77.0); PLATELET COUNT (AUTO) 45 K/uL (130-400); RED CELL DISTRIBUTION WIDTH 12.5 % (11.0-15.5); WHITE BLOOD COUNT (AUTO) 17.6 K/uL (4.8-10.8)
[2020-06-10] MEDS: METHYLPREDNISOLONE SOD SUCC 40MG/ML 1ML IVP SCH ×3 (05:41→20:28)
[2020-06-10 05:56] LABS: ALBUMIN 1.9 g/dL (3.5-5.0); BILIRUBIN,TOTAL 0.7 mg/dL (0.2-1.0); CREATININE 0.5 mg/dL (0.5-1.5); CRP QUANTITATIVE 20.3 mg/L (0.00-9.0); TOTAL PROTEIN, SERUM 5.1 g/dL (6.0-8.3)
[2020-06-10] MEDS: PROPOFOL 1000 MG/100 ML IV PRN ×2 (06:59→18:22)
[2020-06-10] MEDS: INSULIN GLARGINE 100 UNITS/ML 10 ML VIAL SQ SCH ×2 (07:30→20:30)
[2020-06-10] MEDS: INSULIN HUMULIN R 100 UNIT/ML 3ML SQ SCH ×7 (07:30→21:00)
[2020-06-10] MEDS: CEFEPIME HCL 2 GM VIAL IVP SCH ×2 (08:08→20:27)
[2020-06-10] MEDS: ASCORBIC ACID 500 MG TAB PO SCH (08:08)
[2020-06-10] MEDS: POLYETHYLENE GLYCOL 3350 17 GM POWD.PACK PO SCH (08:08)
[2020-06-10] MEDS: COLCHICINE 0.6 MG TABLET PO SCH ×2 (08:08→20:27)
[2020-06-10] MEDS: FAMOTIDINE/PF 20 MG/2 ML VIAL IV SCH ×2 (08:08→20:27)
[2020-06-10] MEDS: ENOXAPARIN SODIUM 40 MG/0.4 ML SYRINGE SQ SCH (08:36)
[2020-06-10] MEDS: ACETYLCYSTEINE 600 MG CAPSULE PO SCH ×2 (08:36→20:27)
--- NOTE | 2020-06-10 10:00 | NUR ---
CT RESULTS NOTIFICATION PATSY TOWNSEND MADE AWARE OF CT RESULTS. NO INTERVENTION AT THIS TIME.
[2020-06-10] MEDS ORDERED: LACTULOSE 20 GM/30 ML UDCUP PO PRN (11:30)
[2020-06-10] MEDS: ZINC SULFATE 220 CAPSULE PO SCH (12:07)
[2020-06-10] MEDS: LACTULOSE 20 GM/30 ML UDCUP PO PRN (12:08)
[2020-06-10] MEDS ORDERED: DIATR MEGLU/DIATRIZOATE SODIUM 30 ML BOTTLE ONE (14:56)
[2020-06-10 16:26] LABS: ABG BASE EXCESS 4.4 mmol/L (-2.0-3.0); ABG HCO3 31.1 mmol/L (21.0-28.0); ABG OXYGEN SATURATION 96.7 % (95.0-99.0); ABG PCO2 55 mmHg (35-48)
[2020-06-11] VITALS (53 sets, daily range): BP systolic 89–156; BP diastolic 53–82
[2020-06-11] MEDS: FENTANYL 2500MCG+NS 250ML 250 ML IV SCH ×2 (02:52→16:48)
[2020-06-11 05:32] LABS: ALBUMIN 1.8 g/dL (3.5-5.0); BILIRUBIN,TOTAL 0.6 mg/dL (0.2-1.0); CREATININE 0.5 mg/dL (0.5-1.5); POTASSIUM 5.2 mmol/L (3.5-5.1); TOTAL PROTEIN, SERUM 4.9 g/dL (6.0-8.3)
[2020-06-11] MEDS: PROPOFOL 1000 MG/100 ML IV PRN ×3 (06:09→22:00)
[2020-06-11] MEDS: METHYLPREDNISOLONE SOD SUCC 40MG/ML 1ML IVP SCH ×3 (06:09→22:00)
[2020-06-11 07:23] LABS: ABG BASE EXCESS 8.2 mmol/L (-2.0-3.0); ABG HCO3 35.1 mmol/L (21.0-28.0); ABG OXYGEN SATURATION 97.4 % (95.0-99.0); ABG PCO2 58 mmHg (35-48)
[2020-06-11] MEDS: INSULIN HUMULIN R 100 UNIT/ML 3ML SQ SCH ×5 (07:30→20:36)
[2020-06-11] MEDS: INSULIN GLARGINE 100 UNITS/ML 10 ML VIAL SQ SCH ×3 (07:30→20:35)
[2020-06-11] MEDS: POLYETHYLENE GLYCOL 3350 17 GM POWD.PACK PO SCH (08:20)
[2020-06-11] MEDS: CEFEPIME HCL 2 GM VIAL IVP SCH ×2 (08:20→20:31)
[2020-06-11] MEDS: COLCHICINE 0.6 MG TABLET PO SCH (08:20)
[2020-06-11] MEDS: ACETYLCYSTEINE 600 MG CAPSULE PO SCH ×2 (08:20→20:31)
[2020-06-11] MEDS: ASCORBIC ACID 500 MG TAB PO SCH (08:20)
[2020-06-11] MEDS: FAMOTIDINE/PF 20 MG/2 ML VIAL IV SCH ×2 (08:21→20:31)
[2020-06-11] MEDS ORDERED: LACTATED RINGERS 1000ML IV SCH (09:45)
[2020-06-11 10:08] LABS: HEMATOCRIT 27.6 % (42-54); MEAN CORPUSCULAR HEMOGLOBIN 32.8 pg (27.0-33.0); MEAN CORPUSCULAR HGB CONC 32.6 g/dL (32.0-36.0); MEAN CORPUSCULAR VOLUME 100.7 fL (79-99); PLATELET COUNT (AUTO) 36 K/uL (130-400); RED BLOOD CELL COUNT(AUTO) 2.74 MIL/uL (4.50-6.20); RED CELL DISTRIBUTION WIDTH 12.8 % (11.0-15.5); WHITE BLOOD COUNT (AUTO) 11.8 K/uL (4.8-10.8)
[2020-06-11 11:28] LABS: LYMPHOCYTES % (MANUAL) 4 % (22-44); MAN.DIFF COMMENT-IMPRESSION MANUAL DIFFERENTIAL; MONOCYTES % (MANUAL) 3 % (2-9); SEGMENTED NEUTROPHILS % 93 % (40-70)
[2020-06-11] MEDS: ZINC SULFATE 220 CAPSULE PO SCH (11:56)
--- NOTE | 2020-06-11 14:03 | NUR ---
RD NOTIFICATION/FOLLOW UP Pt with Hypoxic respiratory failure, s/p intubation. Notification for tube feeding recommendations received. ProMote formula or its Equivalent requested. Recommend Promote equivalent, Vital High Protein initiated at 15mls/hr. Goal rate to meet protein needs at 40mls/hr. Recommend flushes at 100ml Q6hrs. Recommendations faxed to Juanita RN notified. Nutrition note: WBC 11.8, K 5.2, BUN 31, Cr 0.5, BG 194, Alb 1.8. RD to continue to monitor. Please notify as additional nutrition concerns arise. Thank you.
[2020-06-11] MEDS: LACTULOSE 20 GM/30 ML UDCUP PO PRN (20:31)
[2020-06-12] VITALS (56 sets, daily range): BP systolic 90–148; BP diastolic 47–85
[2020-06-12] MEDS: FENTANYL 2500MCG+NS 250ML 250 ML IV SCH ×2 (03:55→17:01)
[2020-06-12] MEDS: PROPOFOL 1000 MG/100 ML IV PRN ×3 (04:06→17:01)
[2020-06-12 04:38] LABS: HEMATOCRIT 27.4 % (42-54); MEAN CORPUSCULAR HEMOGLOBIN 32.9 pg (27.0-33.0); MEAN CORPUSCULAR HGB CONC 34.3 g/dL (32.0-36.0); MEAN CORPUSCULAR VOLUME 95.8 fL (79-99); NUCLEATED RED BLOOD CELLS 0.1 % (0.0-0.19); PLATELET COUNT (AUTO) 51 K/uL (130-400); RED BLOOD CELL COUNT(AUTO) 2.86 MIL/uL (4.50-6.20); RED CELL DISTRIBUTION WIDTH 12.3 % (11.0-15.5); WHITE BLOOD COUNT (AUTO) 17.4 K/uL (4.8-10.8)
[2020-06-12 05:01] LABS: BILIRUBIN,TOTAL 0.6 mg/dL (0.2-1.0); CREATININE 0.4 mg/dL (0.5-1.5); CRP QUANTITATIVE 8.1 mg/L (0.00-9.0); POTASSIUM 4.9 mmol/L (3.5-5.1)
[2020-06-12 05:15] LABS: BAND NEUTROPHILS % (MANUAL) 2 % (0-2); EOSINOPHILS % (MANUAL) 4 % (1-6); LYMPHOCYTES % (MANUAL) 11 % (22-44); MAN.DIFF COMMENT-IMPRESSION MANUAL DIFFERENTIAL; MONOCYTES % (MANUAL) 1 % (2-9); PLATELET MORPHOLOGY COMMENT DECREASED; SEGMENTED NEUTROPHILS % 82 % (40-70)
[2020-06-12] MEDS: METHYLPREDNISOLONE SOD SUCC 40MG/ML 1ML IVP SCH ×3 (05:30→21:32)
[2020-06-12 07:35] LABS: ABG BASE EXCESS 11.7 mmol/L (-2.0-3.0); ABG HCO3 38.5 mmol/L (21.0-28.0); ABG OXYGEN SATURATION 84.6 % (95.0-99.0); ABG PCO2 58 mmHg (35-48)
[2020-06-12] MEDS: FAMOTIDINE/PF 20 MG/2 ML VIAL IV SCH ×2 (08:50→21:27)
[2020-06-12] MEDS: ACETYLCYSTEINE 600 MG CAPSULE PO SCH ×2 (08:50→21:27)
[2020-06-12] MEDS: ASCORBIC ACID 500 MG TAB PO SCH (08:51)
[2020-06-12] MEDS: POLYETHYLENE GLYCOL 3350 17 GM POWD.PACK PO SCH (08:51)
[2020-06-12] MEDS: INSULIN HUMULIN R 100 UNIT/ML 3ML SQ SCH ×4 (08:53→21:29)
[2020-06-12] MEDS: INSULIN GLARGINE 100 UNITS/ML 10 ML VIAL SQ SCH ×2 (08:54→21:31)
[2020-06-12] MEDS: ZINC SULFATE 220 CAPSULE PO SCH (11:20)
[2020-06-12 12:08] LABS: ABG BASE EXCESS 11.4 mmol/L (-2.0-3.0); ABG HCO3 38.4 mmol/L (21.0-28.0); ABG OXYGEN SATURATION 96.8 % (95.0-99.0); ABG PCO2 59 mmHg (35-48)
[2020-06-12] MEDS ORDERED: PHARMACY COMMUNICATION MISC SCH (14:30)
[2020-06-12] MEDS ORDERED: COMPOUND IV REFRIGERATED 1 EACH IVSOLN MISC PRN (15:45)
[2020-06-12] MEDS ORDERED: VANCOMYCIN 1.5 GM in SODIUM CHLORIDE 0.9% 250 ML IV ONE (16:00)
[2020-06-12] MEDS: CEFEPIME HCL 2 GM VIAL IVP SCH (16:19)
[2020-06-12] MEDS ORDERED: INSULIN HUMULIN R 100 UNIT/ML 3ML SQ SCH (16:30)
[2020-06-12] MEDS: DEXMEDETOMIDINE HCL 400 MCG in SODIUM CHLORIDE 0.9% 100 ML IV SCH ×2 (16:49→21:34)
[2020-06-12] MEDS ORDERED: MIDAZOLAM 100MG-0.9% NS 100ML 100ML BAG IV ONE (19:00)
[2020-06-12] MEDS: MIDAZOLAM 100MG-0.9% NS 100ML 100 ML IV SCH (21:32)
[2020-06-13] VITALS (46 sets, daily range): BP systolic 86–169; BP diastolic 48–89
[2020-06-13] MEDS: CEFEPIME HCL 2 GM VIAL IVP SCH ×4 (02:19→23:56)
[2020-06-13 04:16] LABS: ALBUMIN 1.8 g/dL (3.5-5.0); BILIRUBIN,TOTAL 0.6 mg/dL (0.2-1.0); CREATININE 0.4 mg/dL (0.5-1.5); CRP QUANTITATIVE 97.8 mg/L (0.00-9.0); POTASSIUM 4.9 mmol/L (3.5-5.1); TOTAL PROTEIN, SERUM 4.9 g/dL (6.0-8.3)
[2020-06-13] MEDS: VANCOMYCIN 1GM+NS 250ML 250 ML IV SCH ×2 (05:34→18:22)
[2020-06-13] MEDS: METHYLPREDNISOLONE SOD SUCC 40MG/ML 1ML IVP SCH (05:34)
[2020-06-13 05:40] LABS: HEMATOCRIT 22.2 % (42-54); MEAN CORPUSCULAR HEMOGLOBIN 33.3 pg (27.0-33.0); MEAN CORPUSCULAR HGB CONC 35.1 g/dL (32.0-36.0); MEAN CORPUSCULAR VOLUME 94.9 fL (79-99); NUCLEATED RED BLOOD CELLS 0.2 % (0.0-0.19); PLATELET COUNT (AUTO) 33 K/uL (130-400); RED BLOOD CELL COUNT(AUTO) 2.34 MIL/uL (4.50-6.20); RED CELL DISTRIBUTION WIDTH 12.6 % (11.0-15.5); WHITE BLOOD COUNT (AUTO) 9.9 K/uL (4.8-10.8)
[2020-06-13 05:52] LABS: BAND NEUTROPHILS % (MANUAL) 10 % (0-2); LYMPHOCYTES % (MANUAL) 2 % (22-44); MAN.DIFF COMMENT-IMPRESSION MANUAL DIFFERENTIAL; MONOCYTES % (MANUAL) 5 % (2-9); SEGMENTED NEUTROPHILS % 83 % (40-70)
[2020-06-13] MEDS: INSULIN HUMULIN R 100 UNIT/ML 3ML SQ SCH ×3 (07:30→21:20)
[2020-06-13] MEDS: POLYETHYLENE GLYCOL 3350 17 GM POWD.PACK PO SCH (08:40)
[2020-06-13] MEDS: ACETYLCYSTEINE 600 MG CAPSULE PO SCH ×2 (08:40→21:17)
[2020-06-13] MEDS: FAMOTIDINE/PF 20 MG/2 ML VIAL IV SCH ×2 (08:40→21:18)
[2020-06-13] MEDS: ASCORBIC ACID 500 MG TAB PO SCH (08:40)
[2020-06-13] MEDS: INSULIN GLARGINE 100 UNITS/ML 10 ML VIAL SQ SCH ×2 (08:43→21:21)
[2020-06-13] MEDS: LINEZOLID 600 MG/ISO-OSM 300 ML IV SCH ×2 (09:53→21:18)
[2020-06-13 10:01] LABS: ABG BASE EXCESS 11.8 mmol/L (-2.0-3.0); ABG HCO3 38.6 mmol/L (21.0-28.0); ABG OXYGEN SATURATION 94.7 % (95.0-99.0); ABG PCO2 58 mmHg (35-48)
[2020-06-13] MEDS: ZINC SULFATE 220 CAPSULE PO SCH (12:00)
--- NOTE | 2020-06-13 18:52 | NUR ---
Lab Hgb of 7.4 reported to PCP. Orders to give unit of blood. Blood bank staff requested more justification for transfusing 1 unitof blood stating that they usually transfuse when it's below 7.0. I informed of this. Will repeat Hgb in am.
[2020-06-13] MEDS: METHYLPREDNISOLONE SOD SUCC 125MG/2ML VIAL IVP SCH (21:18)
[2020-06-13] MEDS: FENTANYL 2500MCG+NS 250ML 250 ML IV SCH (23:58)
[2020-06-14] VITALS (46 sets, daily range): BP systolic 81–170; BP diastolic 43–105
[2020-06-14 05:28] LABS: BASOPHILS % (AUTO) 0.2 % (0.0-5.0); EOSINOPHILS % (AUTO) 0.1 % (0.0-8.0); HEMATOCRIT 24.9 % (42-54); LYMPHOCYTES % (AUTO) 3.4 % (21.0-51.0); MEAN CORPUSCULAR HEMOGLOBIN 33.1 pg (27.0-33.0); MEAN CORPUSCULAR HGB CONC 34.1 g/dL (32.0-36.0); MEAN CORPUSCULAR VOLUME 96.9 fL (79-99); MONOCYTES % (AUTO) 2.1 % (3.0-13.0); NEUTROPHILS % (AUTO) 87.8 % (40.0-77.0); NUCLEATED RED BLOOD CELLS 0.1 % (0.0-0.19); PLATELET COUNT (AUTO) 55 K/uL (130-400); RED BLOOD CELL COUNT(AUTO) 2.57 MIL/uL (4.50-6.20); RED CELL DISTRIBUTION WIDTH 12.9 % (11.0-15.5); WHITE BLOOD COUNT (AUTO) 14.9 K/uL (4.8-10.8)
[2020-06-14 05:38] LABS: % IRON SATURATION 35.5 % (30-44)
[2020-06-14 05:49] LABS: ALBUMIN 1.9 g/dL (3.5-5.0); BILIRUBIN,TOTAL 0.7 mg/dL (0.2-1.0); CREATININE 0.4 mg/dL (0.5-1.5); CRP QUANTITATIVE 103.9 mg/L (0.00-9.0); POTASSIUM 4.9 mmol/L (3.5-5.1); TOTAL PROTEIN, SERUM 5.5 g/dL (6.0-8.3)
[2020-06-14] MEDS: VANCOMYCIN 1GM+NS 250ML 250 ML IV SCH (06:07)
[2020-06-14] MEDS: INSULIN HUMULIN R 100 UNIT/ML 3ML SQ SCH ×3 (06:50→21:10)
[2020-06-14] MEDS: INSULIN GLARGINE 100 UNITS/ML 10 ML VIAL SQ SCH ×2 (07:30→21:08)
[2020-06-14] MEDS: ASCORBIC ACID 500 MG TAB PO SCH (09:00)
[2020-06-14] MEDS: METHYLPREDNISOLONE SOD SUCC 125MG/2ML VIAL IVP SCH ×2 (09:00→21:06)
[2020-06-14] MEDS: FAMOTIDINE/PF 20 MG/2 ML VIAL IV SCH ×2 (09:00→21:07)
[2020-06-14] MEDS: ACETYLCYSTEINE 600 MG CAPSULE PO SCH ×2 (09:00→21:06)
[2020-06-14] MEDS: POLYETHYLENE GLYCOL 3350 17 GM POWD.PACK PO SCH (09:00)
[2020-06-14] MEDS: LINEZOLID 600 MG/ISO-OSM 300 ML IV SCH ×2 (09:30→21:04)
--- NOTE | 2020-06-14 09:53 | NUR ---
Stool Stool was collected and sent to lab for processing
[2020-06-14] MEDS: ZINC SULFATE 220 CAPSULE PO SCH (12:00)
[2020-06-14] MEDS: MIDAZOLAM 100MG-0.9% NS 100ML 100 ML IV SCH (13:55)
[2020-06-14] MEDS: FENTANYL 2500MCG+NS 250ML 250 ML IV SCH ×2 (13:56→21:06)
[2020-06-14] MEDS ORDERED: DEXTROSE 50%-WATER 50 ML DISP.SYRIN IV ONE (16:09)
[2020-06-14] MEDS ORDERED: DEXTROSE 50%-WATER 50 ML DISP.SYRIN IV SCH (16:30)
--- NOTE | 2020-06-14 16:58 | NUR ---
Blood Glucose Notified of low blood glucose of 51. Order given to give 1 amp of D50- Pt re-evaluated with a glucose level of 175. V/S stable, will continue to monitor.
[2020-06-14] MEDS: CEFEPIME HCL 2 GM VIAL IVP SCH ×2 (18:16→18:18)
[2020-06-14] MEDS: DEXMEDETOMIDINE HCL 400 MCG in SODIUM CHLORIDE 0.9% 100 ML IV SCH ×2 (18:30→21:12)
[2020-06-15] VITALS (54 sets, daily range): BP systolic 67–154; BP diastolic 42–115
[2020-06-15] MEDS: CEFEPIME HCL 2 GM VIAL IVP SCH ×3 (00:53→17:30)
[2020-06-15] MEDS: INSULIN GLARGINE 100 UNITS/ML 10 ML VIAL SQ SCH ×2 (05:44→20:50)
[2020-06-15] MEDS: INSULIN HUMULIN R 100 UNIT/ML 3ML SQ SCH ×4 (05:45→20:58)
[2020-06-15 06:28] LABS: HEMATOCRIT 23.4 % (42-54); MEAN CORPUSCULAR HEMOGLOBIN 33.5 pg (27.0-33.0); MEAN CORPUSCULAR VOLUME 95.5 fL (79-99); NUCLEATED RED BLOOD CELLS 0.2 % (0.0-0.19); PLATELET COUNT (AUTO) 57 K/uL (130-400); RED BLOOD CELL COUNT(AUTO) 2.45 MIL/uL (4.50-6.20); RED CELL DISTRIBUTION WIDTH 12.9 % (11.0-15.5); WHITE BLOOD COUNT (AUTO) 11.5 K/uL (4.8-10.8)
[2020-06-15 06:58] LABS: ALBUMIN 1.7 g/dL (3.5-5.0); BILIRUBIN,TOTAL 0.6 mg/dL (0.2-1.0); CREATININE 0.4 mg/dL (0.5-1.5); POTASSIUM 4.7 mmol/L (3.5-5.1); TOTAL PROTEIN, SERUM 5.2 g/dL (6.0-8.3)
[2020-06-15 07:47] LABS: BAND NEUTROPHILS % (MANUAL) 1 % (0-2); LYMPHOCYTES % (MANUAL) 4 % (22-44); MAN.DIFF COMMENT-IMPRESSION MANUAL DIFFERENTIAL; MONOCYTES % (MANUAL) 3 % (2-9); PLATELET MORPHOLOGY COMMENT MARKED DECREASE; SEGMENTED NEUTROPHILS % 92 % (40-70)
[2020-06-15] MEDS: FAMOTIDINE/PF 20 MG/2 ML VIAL IV SCH ×2 (09:00→20:51)
[2020-06-15] MEDS: ASCORBIC ACID 500 MG TAB PO SCH (09:00)
[2020-06-15] MEDS: POLYETHYLENE GLYCOL 3350 17 GM POWD.PACK PO SCH (09:00)
[2020-06-15] MEDS: ACETYLCYSTEINE 600 MG CAPSULE PO SCH ×2 (09:00→20:52)
[2020-06-15] MEDS: LINEZOLID 600 MG/ISO-OSM 300 ML IV SCH (10:30)
[2020-06-15] MEDS: ZINC SULFATE 220 CAPSULE PO SCH (12:00)
[2020-06-15] MEDS ORDERED: METOPROLOL TARTRATE 1 MG/ML 5ML VIAL IV ONE (15:32)
[2020-06-15] MEDS: METOPROLOL TARTRATE 1 MG/ML 5ML VIAL IV SCH ×2 (15:43→20:53)
--- NOTE | 2020-06-15 15:44 | NUR ---
Began vent weaning.Pt now breathing on his own. with sats at 100%. Elevated BP noted. Notified MD of consistent HR of 130's. IV Lopressor ordered with parameters. Will monitor for effectiveness and tolerance.
[2020-06-16] VITALS (44 sets, daily range): BP systolic 63–148; BP diastolic 31–93
[2020-06-16] MEDS: MIDAZOLAM 100MG-0.9% NS 100ML 100 ML IV SCH
[2020-06-16] MEDS: CEFEPIME HCL 2 GM VIAL IVP SCH ×3 (01:19→17:30)
[2020-06-16] MEDS: METOPROLOL TARTRATE 1 MG/ML 5ML VIAL IV SCH ×4 (03:30→21:30)
[2020-06-16 04:38] LABS: HEMATOCRIT 23.2 % (42-54); MEAN CORPUSCULAR HEMOGLOBIN 32.9 pg (27.0-33.0); MEAN CORPUSCULAR HGB CONC 34.5 g/dL (32.0-36.0); MEAN CORPUSCULAR VOLUME 95.5 fL (79-99); NUCLEATED RED BLOOD CELLS 1.9 % (0.0-0.19); PLATELET COUNT (AUTO) 63 K/uL (130-400); RED BLOOD CELL COUNT(AUTO) 2.43 MIL/uL (4.50-6.20); RED CELL DISTRIBUTION WIDTH 13.5 % (11.0-15.5); WHITE BLOOD COUNT (AUTO) 9.9 K/uL (4.8-10.8)
[2020-06-16 06:40] LABS: ALBUMIN 1.6 g/dL (3.5-5.0); BILIRUBIN,TOTAL 0.6 mg/dL (0.2-1.0); CREATININE 0.4 mg/dL (0.5-1.5); CRP QUANTITATIVE 22.7 mg/L (0.00-9.0); POTASSIUM 3.7 mmol/L (3.5-5.1); TOTAL PROTEIN, SERUM 4.7 g/dL (6.0-8.3)
[2020-06-16] MEDS: INSULIN GLARGINE 100 UNITS/ML 10 ML VIAL SQ SCH ×2 (07:30→20:59)
[2020-06-16] MEDS: INSULIN HUMULIN R 100 UNIT/ML 3ML SQ SCH ×2 (07:30→20:58)
[2020-06-16 07:56] LABS: BAND NEUTROPHILS % (MANUAL) 3 % (0-2); LYMPHOCYTES % (MANUAL) 2 % (22-44); MAN.DIFF COMMENT-IMPRESSION MANUAL DIFFERENTIAL; MONOCYTES % (MANUAL) 2 % (2-9); SEGMENTED NEUTROPHILS % 93 % (40-70)
[2020-06-16 07:57] LABS: PLATELET MORPHOLOGY COMMENT MARKED DECREASE
[2020-06-16] MEDS: ACETYLCYSTEINE 600 MG CAPSULE PO SCH ×2 (08:36→20:54)
[2020-06-16] MEDS: DEXAMETHASONE SOD PHOSPHATE 4 MG/ML 1ML VIAL IVP SCH (08:36)
[2020-06-16] MEDS: FLUCONAZOLE 200 MG/NS 100 ML 100 ML IV SCH (08:36)
[2020-06-16] MEDS: FAMOTIDINE/PF 20 MG/2 ML VIAL IV SCH ×2 (08:49→20:54)
[2020-06-16] MEDS: ASCORBIC ACID 500 MG TAB PO SCH (08:49)
[2020-06-16] MEDS: POLYETHYLENE GLYCOL 3350 17 GM POWD.PACK PO SCH (09:00)
[2020-06-16] MEDS: ZINC SULFATE 220 CAPSULE PO SCH (12:00)
[2020-06-16] MEDS ORDERED: NOREPINEPHRINE 4MG/NS 250ML 250 ML IV ONE (12:50)
[2020-06-16] MEDS: FENTANYL 2500MCG+NS 250ML 250 ML IV SCH ×2 (16:23)
--- NOTE | 2020-06-16 18:20 | NUR ---
made rounds. Recommended C-pap trials today. Continues to maintain 100% O2 saturation with 40% FiO2. Pt had large BM, oral care and bath given. Tolerated well with HR in the 80s-90s
[2020-06-16] MEDS: DEXMEDETOMIDINE HCL 400 MCG in SODIUM CHLORIDE 0.9% 100 ML IV SCH (20:55)
[2020-06-16] MEDS: NOREPINEPHRINE BITARTRATE 8 MG in SODIUM CHLORIDE 0.9% 250 ML IV SCH (20:56)
[2020-06-17] VITALS (90 sets, daily range): BP systolic 83–154; BP diastolic 38–102
[2020-06-17] MEDS: MIDAZOLAM 100MG-0.9% NS 100ML 100 ML IV SCH (00:59)
[2020-06-17] MEDS: FENTANYL 2500MCG+NS 250ML 250 ML IV SCH ×2 (01:02→20:31)
[2020-06-17] MEDS: CEFEPIME HCL 2 GM VIAL IVP SCH ×3 (01:02→16:34)
[2020-06-17] MEDS: METOPROLOL TARTRATE 1 MG/ML 5ML VIAL IV SCH ×4 (03:30→21:30)
[2020-06-17 04:36] LABS: HEMATOCRIT 23.3 % (42-54); MEAN CORPUSCULAR HEMOGLOBIN 32.6 pg (27.0-33.0); MEAN CORPUSCULAR HGB CONC 33.5 g/dL (32.0-36.0); MEAN CORPUSCULAR VOLUME 97.5 fL (79-99); NUCLEATED RED BLOOD CELLS 1.9 % (0.0-0.19); RED BLOOD CELL COUNT(AUTO) 2.39 MIL/uL (4.50-6.20); RED CELL DISTRIBUTION WIDTH 14.3 % (11.0-15.5); WHITE BLOOD COUNT (AUTO) 7.9 K/uL (4.8-10.8)
[2020-06-17 04:58] LABS: CRP QUANTITATIVE 27.1 mg/L (0.00-9.0)
[2020-06-17] MEDS: INSULIN HUMULIN R 100 UNIT/ML 3ML SQ SCH ×4 (07:30→22:34)
[2020-06-17] MEDS: FLUCONAZOLE 200 MG/NS 100 ML 100 ML IV SCH (07:52)
[2020-06-17] MEDS: INSULIN GLARGINE 100 UNITS/ML 10 ML VIAL SQ SCH ×2 (08:26→22:35)
--- NOTE | 2020-06-17 08:29 | NUR ---
held dose of Metoprolol, remains on Levophed
[2020-06-17] MEDS: DEXAMETHASONE SOD PHOSPHATE 4 MG/ML 1ML VIAL IVP SCH (08:37)
[2020-06-17] MEDS: FAMOTIDINE/PF 20 MG/2 ML VIAL IV SCH ×2 (08:37→22:20)
[2020-06-17] MEDS: POLYETHYLENE GLYCOL 3350 17 GM POWD.PACK PO SCH (08:37)
[2020-06-17] MEDS: ACETYLCYSTEINE 600 MG CAPSULE PO SCH ×2 (08:37→22:21)
[2020-06-17] MEDS: ASCORBIC ACID 500 MG TAB PO SCH (08:37)
[2020-06-17] MEDS: DEXMEDETOMIDINE HCL 400 MCG in SODIUM CHLORIDE 0.9% 100 ML IV SCH ×2 (11:00→20:31)
[2020-06-17] MEDS: ZINC SULFATE 220 CAPSULE PO SCH (11:01)
--- NOTE | 2020-06-17 11:40 | NUR ---
Dr Bowser present outside patient's room, made aware about latest labs and subcutaneous emphysema noted around neck, new orders given to try vacation sedation and if patient awake and following commands to try CPAP trials. Decreased sedation by 50% at this time, will continue to monitor.
--- NOTE | 2020-06-17 12:40 | NUR ---
Turned off sedation at this time, noted to be following simple commands.
--- NOTE | 2020-06-17 13:00 | NUR ---
CPAP trials attempted per RT Serena, tolerated 5 mins only, noted to become tachypneic, respirations 35-42, placed back to AC mode with sedation
--- NOTE | 2020-06-17 15:44 | NUR ---
Dose of Metoprolol IV held, remains on Levophed IV, current B/P 118/76, SR 66
[2020-06-17] MEDS: NOREPINEPHRINE BITARTRATE 8 MG in SODIUM CHLORIDE 0.9% 250 ML IV SCH (20:32)
[2020-06-18] VITALS (99 sets, daily range): BP systolic 81–180; BP diastolic 48–103
[2020-06-18] MEDS: METOPROLOL TARTRATE 1 MG/ML 5ML VIAL IV SCH ×4 (03:04→21:18)
[2020-06-18] MEDS: CEFEPIME HCL 2 GM VIAL IVP SCH ×3 (03:09→16:49)
[2020-06-18 03:53] LABS: HEMATOCRIT 23.5 % (42-54); MEAN CORPUSCULAR HEMOGLOBIN 33.1 pg (27.0-33.0); MEAN CORPUSCULAR HGB CONC 33.6 g/dL (32.0-36.0); MEAN CORPUSCULAR VOLUME 98.3 fL (79-99); NUCLEATED RED BLOOD CELLS 0.9 % (0.0-0.19); RED BLOOD CELL COUNT(AUTO) 2.39 MIL/uL (4.50-6.20); RED CELL DISTRIBUTION WIDTH 14.6 % (11.0-15.5); WHITE BLOOD COUNT (AUTO) 6.5 K/uL (4.8-10.8)
[2020-06-18 04:20] LABS: ALBUMIN 1.8 g/dL (3.5-5.0); BILIRUBIN,TOTAL 0.5 mg/dL (0.2-1.0); CREATININE 0.4 mg/dL (0.5-1.5); CRP QUANTITATIVE 22.7 mg/L (0.00-9.0); POTASSIUM 4.3 mmol/L (3.5-5.1); TOTAL PROTEIN, SERUM 5.1 g/dL (6.0-8.3)
[2020-06-18] MEDS: INSULIN HUMULIN R 100 UNIT/ML 3ML SQ SCH ×4 (07:14→21:15)
[2020-06-18] MEDS: INSULIN GLARGINE 100 UNITS/ML 10 ML VIAL SQ SCH ×2 (07:18→21:14)
[2020-06-18] MEDS: ACETYLCYSTEINE 600 MG CAPSULE PO SCH ×2 (08:20→21:00)
[2020-06-18] MEDS: POLYETHYLENE GLYCOL 3350 17 GM POWD.PACK PO SCH (08:20)
[2020-06-18] MEDS: FLUCONAZOLE 200 MG/NS 100 ML 100 ML IV SCH (08:20)
[2020-06-18] MEDS: DEXAMETHASONE SOD PHOSPHATE 4 MG/ML 1ML VIAL IVP SCH (08:20)
[2020-06-18] MEDS: FAMOTIDINE/PF 20 MG/2 ML VIAL IV SCH ×2 (08:20→21:12)
[2020-06-18] MEDS: ASCORBIC ACID 500 MG TAB PO SCH (08:21)
--- NOTE | 2020-06-18 10:05 | NUR ---
Dose of Metoprolol IV held, remains on Levophed drip, current B/P 123/78, SR 69
[2020-06-18 10:24] LABS: ABG BASE EXCESS 11.3 mmol/L (-2.0-3.0); ABG HCO3 37.3 mmol/L (21.0-28.0); ABG OXYGEN SATURATION 98.4 % (95.0-99.0); ABG PCO2 54 mmHg (35-48)
[2020-06-18] MEDS: ZINC SULFATE 220 CAPSULE PO SCH (11:08)
[2020-06-18] MEDS: DEXMEDETOMIDINE HCL 400 MCG in SODIUM CHLORIDE 0.9% 100 ML IV SCH ×3 (12:29→21:18)
--- NOTE | 2020-06-18 14:30 | NUR ---
Awake, follows simple commands, placed of CPAP mode per MercedRT, tolerated less than 5 mins, became Tachycardic 120's and Respirations 40 shallow, using abd muscles, placed back on AC mode with sedation ordered
[2020-06-18] MEDS: FENTANYL 2500MCG+NS 250ML 250 ML IV SCH (14:55)
[2020-06-18] MEDS: MIDAZOLAM 100MG-0.9% NS 100ML 100 ML IV SCH (15:39)
[2020-06-18] MEDS: NOREPINEPHRINE BITARTRATE 8 MG in SODIUM CHLORIDE 0.9% 250 ML IV SCH (21:17)
[2020-06-19] VITALS (74 sets, daily range): BP systolic 60–179; BP diastolic 33–94
[2020-06-19] MEDS: FENTANYL 2500MCG+NS 250ML 250 ML IV SCH (01:29)
[2020-06-19] MEDS: CEFEPIME HCL 2 GM VIAL IVP SCH ×3 (01:30→18:07)
[2020-06-19] MEDS: MIDAZOLAM 100MG-0.9% NS 100ML 100 ML IV SCH (01:30)
[2020-06-19] MEDS: METOPROLOL TARTRATE 1 MG/ML 5ML VIAL IV SCH ×4 (03:21→21:30)
[2020-06-19 04:50] LABS: HEMATOCRIT 25.1 % (42-54); MEAN CORPUSCULAR HEMOGLOBIN 33.3 pg (27.0-33.0); MEAN CORPUSCULAR HGB CONC 33.5 g/dL (32.0-36.0); MEAN CORPUSCULAR VOLUME 99.6 fL (79-99); NUCLEATED RED BLOOD CELLS 0.3 % (0.0-0.19); RED BLOOD CELL COUNT(AUTO) 2.52 MIL/uL (4.50-6.20); RED CELL DISTRIBUTION WIDTH 15.4 % (11.0-15.5); WHITE BLOOD COUNT (AUTO) 7.8 K/uL (4.8-10.8)
[2020-06-19 05:01] LABS: ALBUMIN 1.8 g/dL (3.5-5.0); BILIRUBIN,TOTAL 0.5 mg/dL (0.2-1.0); CREATININE 0.4 mg/dL (0.5-1.5); CRP QUANTITATIVE 35.3 mg/L (0.00-9.0); POTASSIUM 4.1 mmol/L (3.5-5.1); TOTAL PROTEIN, SERUM 5.2 g/dL (6.0-8.3)
[2020-06-19] MEDS: INSULIN HUMULIN R 100 UNIT/ML 3ML SQ SCH ×4 (07:30→20:34)
[2020-06-19 09:06] LABS: ABG BASE EXCESS 9.2 mmol/L (-2.0-3.0); ABG HCO3 36.2 mmol/L (21.0-28.0); ABG OXYGEN SATURATION 92.7 % (95.0-99.0); ABG PCO2 59 mmHg (35-48)
[2020-06-19] MEDS: FLUCONAZOLE 200 MG/NS 100 ML 100 ML IV SCH (09:20)
[2020-06-19] MEDS: INSULIN GLARGINE 100 UNITS/ML 10 ML VIAL SQ SCH ×2 (09:20→20:33)
[2020-06-19] MEDS: DEXAMETHASONE SOD PHOSPHATE 4 MG/ML 1ML VIAL IVP SCH (09:21)
[2020-06-19] MEDS: FAMOTIDINE/PF 20 MG/2 ML VIAL IV SCH ×2 (09:21→20:29)
[2020-06-19] MEDS: POLYETHYLENE GLYCOL 3350 17 GM POWD.PACK PO SCH (09:23)
[2020-06-19] MEDS: ENOXAPARIN SODIUM 40 MG/0.4 ML SYRINGE SQ SCH (09:26)
[2020-06-19] MEDS: PROPOFOL 1000 MG/100 ML IV PRN ×2 (13:08→20:05)
[2020-06-19] MEDS: DEXMEDETOMIDINE HCL 400 MCG in SODIUM CHLORIDE 0.9% 100 ML IV SCH ×2 (20:05→23:53)
[2020-06-19] MEDS: ACETYLCYSTEINE 20% 200MG/ML 4ML VIAL PO SCH (20:30)
[2020-06-20] VITALS (55 sets, daily range): BP systolic 65–156; BP diastolic 40–98
[2020-06-20] MEDS: CEFEPIME HCL 2 GM VIAL IVP SCH ×3 (02:58→17:50)
[2020-06-20] MEDS: FENTANYL 2500MCG+NS 250ML 250 ML IV SCH ×3 (02:59→23:52)
[2020-06-20] MEDS: METOPROLOL TARTRATE 1 MG/ML 5ML VIAL IV SCH ×4 (03:30→21:42)
[2020-06-20 04:18] LABS: HEMATOCRIT 27.5 % (42-54); MEAN CORPUSCULAR HGB CONC 33.5 g/dL (32.0-36.0); MEAN CORPUSCULAR VOLUME 98.6 fL (79-99); RED BLOOD CELL COUNT(AUTO) 2.79 MIL/uL (4.50-6.20); RED CELL DISTRIBUTION WIDTH 16.5 % (11.0-15.5); WHITE BLOOD COUNT (AUTO) 7.2 K/uL (4.8-10.8)
[2020-06-20 04:37] LABS: CRP QUANTITATIVE 57.5 mg/L (0.00-9.0)
[2020-06-20] MEDS: PROPOFOL 1000 MG/100 ML IV PRN ×3 (06:51→19:29)
[2020-06-20] MEDS: NOREPINEPHRINE BITARTRATE 8 MG in SODIUM CHLORIDE 0.9% 250 ML IV SCH (06:52)
[2020-06-20] MEDS: INSULIN GLARGINE 100 UNITS/ML 10 ML VIAL SQ SCH ×2 (07:30→21:03)
[2020-06-20] MEDS: INSULIN HUMULIN R 100 UNIT/ML 3ML SQ SCH ×4 (07:30→21:10)
[2020-06-20 08:28] LABS: ALBUMIN 1.9 g/dL (3.5-5.0); BILIRUBIN,TOTAL 0.7 mg/dL (0.2-1.0); CREATININE 0.5 mg/dL (0.5-1.5); POTASSIUM 4.6 mmol/L (3.5-5.1); TOTAL PROTEIN, SERUM 5.8 g/dL (6.0-8.3)
[2020-06-20] MEDS: ENOXAPARIN SODIUM 40 MG/0.4 ML SYRINGE SQ SCH (08:42)
[2020-06-20] MEDS: DEXAMETHASONE SOD PHOSPHATE 4 MG/ML 1ML VIAL IVP SCH (08:44)
[2020-06-20] MEDS: ACETYLCYSTEINE 20% 200MG/ML 4ML VIAL PO SCH ×2 (08:45→21:11)
[2020-06-20] MEDS: FAMOTIDINE/PF 20 MG/2 ML VIAL IV SCH ×2 (08:45→21:03)
[2020-06-20] MEDS: MIDODRINE HCL 5 MG TABLET PO SCH ×4 (08:45→23:51)
[2020-06-20] MEDS: FLUCONAZOLE 200 MG/NS 100 ML 100 ML IV SCH (08:47)
--- NOTE | 2020-06-20 09:00 | NUR ---
CPAP TRIAL PT NOT ABLE TO TOLERATE CPAP TRAIL INITIATION, APPEARS ANXIOUS AND TACHYPNEC. WILL REASSESS AT A LATER TIME.
[2020-06-20] MEDS: DEXMEDETOMIDINE HCL 400 MCG in SODIUM CHLORIDE 0.9% 100 ML IV SCH ×3 (09:15→21:04)
--- NOTE | 2020-06-20 11:50 | NUR ---
PRONE PT TURNED INTO PRONE POSITION AT 1230. PT IS TOLERATING THUS FAR. TF DECREASED TO 10CC/HR. Addendum: 06/20/20 at 1431 by Shirley Stoddard RN RN TIME ERROR, PT PRONED AT 1130
--- NOTE | 2020-06-20 14:32 | NUR ---
REPOSITION PT IN PRONE, REPOSITION AND ORAL SUCTIONED AT 1330. TOLERATING WELL.
--- NOTE | 2020-06-20 15:30 | NUR ---
PT IN PRONE REPOSITIONED. BONY AREAS PADDED. MOUTH SUCTIONED. WILL CONTINUE TO MONITOR.
--- NOTE | 2020-06-20 17:30 | NUR ---
REPOSITIONED PT AGAIN, STILL IN PRONE. WILL CONTINUE TO MONITOR.
[2020-06-20] MEDS: CISATRACURIUM BESYLATE 100 MG in SODIUM CHLORIDE 0.9% 100 ML IV SCH (21:04)
[2020-06-21] VITALS (72 sets, daily range): BP systolic 55–193; BP diastolic 30–106
[2020-06-21] MEDS: PROPOFOL 1000 MG/100 ML IV PRN ×3 (00:12→17:14)
[2020-06-21] MEDS ORDERED: SODIUM CHLORIDE 0.9% 500ML 500 ML IV ONE (02:01)
[2020-06-21] MEDS: CEFEPIME HCL 2 GM VIAL IVP SCH ×3 (02:08→17:35)
[2020-06-21] MEDS ORDERED: SODIUM CHLORIDE 0.9% 500ML 500 ML IV SCH (02:15)
[2020-06-21] MEDS: METOPROLOL TARTRATE 1 MG/ML 5ML VIAL IV SCH ×4 (02:43→21:30)
[2020-06-21 04:41] LABS: HEMATOCRIT 27.2 % (42-54); MEAN CORPUSCULAR HEMOGLOBIN 32.8 pg (27.0-33.0); MEAN CORPUSCULAR HGB CONC 32.4 g/dL (32.0-36.0); MEAN CORPUSCULAR VOLUME 101.5 fL (79-99); RED BLOOD CELL COUNT(AUTO) 2.68 MIL/uL (4.50-6.20); RED CELL DISTRIBUTION WIDTH 16.9 % (11.0-15.5); WHITE BLOOD COUNT (AUTO) 8.6 K/uL (4.8-10.8)
[2020-06-21 05:09] LABS: CRP QUANTITATIVE 36.5 mg/L (0.00-9.0)
[2020-06-21] MEDS: DEXMEDETOMIDINE HCL 400 MCG in SODIUM CHLORIDE 0.9% 100 ML IV SCH ×2 (06:49→12:11)
[2020-06-21] MEDS: INSULIN HUMULIN R 100 UNIT/ML 3ML SQ SCH ×4 (07:30→20:44)
[2020-06-21] MEDS: INSULIN GLARGINE 100 UNITS/ML 10 ML VIAL SQ SCH ×2 (07:30→21:50)
[2020-06-21 07:36] LABS: ABG BASE EXCESS 10.4 mmol/L (-2.0-3.0); ABG HCO3 40.4 mmol/L (21.0-28.0); ABG OXYGEN SATURATION 97.6 % (95.0-99.0); ABG PCO2 81 mmHg (35-48)
[2020-06-21] MEDS: CISATRACURIUM BESYLATE 100 MG in SODIUM CHLORIDE 0.9% 100 ML IV SCH (08:24)
[2020-06-21 08:25] LABS: BILIRUBIN,TOTAL 0.7 mg/dL (0.2-1.0); CREATININE 0.5 mg/dL (0.5-1.5); POTASSIUM 4.4 mmol/L (3.5-5.1)
[2020-06-21] MEDS: FENTANYL 2500MCG+NS 250ML 250 ML IV SCH ×2 (08:32→19:17)
[2020-06-21] MEDS: FAMOTIDINE/PF 20 MG/2 ML VIAL IV SCH ×2 (08:40→21:49)
[2020-06-21] MEDS: ENOXAPARIN SODIUM 40 MG/0.4 ML SYRINGE SQ SCH (08:40)
[2020-06-21] MEDS: ACETYLCYSTEINE 20% 200MG/ML 4ML VIAL PO SCH ×2 (08:41→21:00)
[2020-06-21] MEDS: DEXAMETHASONE SOD PHOSPHATE 4 MG/ML 1ML VIAL IVP SCH (09:13)
[2020-06-21] MEDS: LINEZOLID 600 MG/ISO-OSM 300 ML IV SCH ×2 (09:17→21:49)
[2020-06-21] MEDS: FLUCONAZOLE 200 MG/NS 100 ML 100 ML IV SCH (09:37)
[2020-06-21 11:38] LABS: ABG BASE EXCESS 10.5 mmol/L (-2.0-3.0); ABG HCO3 40.8 mmol/L (21.0-28.0); ABG OXYGEN SATURATION 97.4 % (95.0-99.0); ABG PCO2 83 mmHg (35-48)
--- NOTE | 2020-06-21 13:58 | NUR ---
SHIFT SUMMERY ARTLINE PLACED AT BEDSIDE SUCCESSFULLY. ZEROED AND GOOD WAVE FORM. CONTINUE TO TITRATE SEDATION ACCORDING TO V/S. BLOOD PRESSURE IS VERY LABILE. NO CHANGES MADE WITH PARALYTIC, PT AT LOW DOSE. TF BOTTLE AND TUBING CHANGED. PT REMEAINS AFEBRILE, AND IS DIAPHORETIC. GOOD URINE OUTPUT. VENT SETTING WERE CHANGED ACCORDING TO ABG'S DRAWN THIS AFTERNOON. NEW SETTING ARE AC/VC 32, TV 400, PEEP 3, FIO2 50%. PT SATING 100% AND BREATHING WITH THE VENT. PT WILL HAVE DAILY ABG'S IN THE AM, CBC, CMP AND MAG QMORNING.
[2020-06-21 14:23] LABS: ABG BASE EXCESS 12.3 mmol/L (-2.0-3.0); ABG HCO3 38.9 mmol/L (21.0-28.0); ABG OXYGEN SATURATION 98.9 % (95.0-99.0); ABG PCO2 57 mmHg (35-48)
[2020-06-21] MEDS: MIDODRINE HCL 5 MG TABLET PO SCH ×2 (15:11→23:45)
[2020-06-21] MEDS ORDERED: DEXTROSE 50%-WATER 50 ML DISP.SYRIN IV ONE ×2 (17:19→17:21)
--- NOTE | 2020-06-21 17:24 | NUR ---
EVENING BLOOD SUGAR FOUND TO BE 58, 1AMP [id number] IVP. WILL REASSESS BS 15MIN AFTER
--- NOTE | 2020-06-21 17:45 | NUR ---
BLOOD SUGAR RECHECKED 15MIN AFTER AMP OF D50 GIVEN, RESULTED AT 170
[2020-06-22] VITALS (88 sets, daily range): BP systolic 57–219; BP diastolic 32–93
[2020-06-22] MEDS: METOPROLOL TARTRATE 1 MG/ML 5ML VIAL IV SCH ×4 (03:30→19:47)
[2020-06-22 03:45] LABS: ABG BASE EXCESS 12.7 mmol/L (-2.0-3.0); ABG HCO3 39.7 mmol/L (21.0-28.0); ABG OXYGEN SATURATION 98.5 % (95.0-99.0); ABG PCO2 60 mmHg (35-48)
[2020-06-22] MEDS: CEFEPIME HCL 2 GM VIAL IVP SCH ×3 (04:08→18:10)
[2020-06-22 05:01] LABS: ALBUMIN 1.6 g/dL (3.5-5.0); BILIRUBIN,TOTAL 0.6 mg/dL (0.2-1.0); CREATININE 0.4 mg/dL (0.5-1.5); CRP QUANTITATIVE 18.1 mg/L (0.00-9.0); POTASSIUM 3.9 mmol/L (3.5-5.1); TOTAL PROTEIN, SERUM 5.1 g/dL (6.0-8.3)
[2020-06-22 05:16] LABS: BASOPHILS % (AUTO) 0.3 % (0.0-5.0); EOSINOPHILS % (AUTO) 1.5 % (0.0-8.0); HEMATOCRIT 26.3 % (42-54); MEAN CORPUSCULAR HEMOGLOBIN 33.1 pg (27.0-33.0); MEAN CORPUSCULAR HGB CONC 33.5 g/dL (32.0-36.0); MEAN CORPUSCULAR VOLUME 98.9 fL (79-99); MONOCYTES % (AUTO) 7.9 % (3.0-13.0); NEUTROPHILS % (AUTO) 75.3 % (40.0-77.0); PLATELET COUNT (AUTO) 190 K/uL (130-400); RED BLOOD CELL COUNT(AUTO) 2.66 MIL/uL (4.50-6.20); RED CELL DISTRIBUTION WIDTH 16.6 % (11.0-15.5); WHITE BLOOD COUNT (AUTO) 7.3 K/uL (4.8-10.8)
[2020-06-22 07:21] LABS: ABG BASE EXCESS 12.6 mmol/L (-2.0-3.0); ABG HCO3 39.6 mmol/L (21.0-28.0); ABG OXYGEN SATURATION 96.5 % (95.0-99.0); ABG PCO2 60 mmHg (35-48)
[2020-06-22] MEDS: MIDODRINE HCL 5 MG TABLET PO SCH ×3 (09:04→23:45)
[2020-06-22] MEDS: FAMOTIDINE/PF 20 MG/2 ML VIAL IV SCH ×2 (09:04→20:25)
[2020-06-22] MEDS: LINEZOLID 600 MG/ISO-OSM 300 ML IV SCH ×2 (09:04→20:25)
[2020-06-22] MEDS: FLUCONAZOLE 200 MG/NS 100 ML 100 ML IV SCH (09:04)
[2020-06-22] MEDS: DEXAMETHASONE SOD PHOSPHATE 4 MG/ML 1ML VIAL IVP SCH (09:05)
[2020-06-22] MEDS: ACETYLCYSTEINE 20% 200MG/ML 4ML VIAL PO SCH ×2 (09:05→20:26)
[2020-06-22] MEDS: ENOXAPARIN SODIUM 40 MG/0.4 ML SYRINGE SQ SCH (09:06)
[2020-06-22] MEDS: INSULIN HUMULIN R 100 UNIT/ML 3ML SQ SCH ×4 (09:07→20:26)
[2020-06-22] MEDS: INSULIN GLARGINE 100 UNITS/ML 10 ML VIAL SQ SCH ×2 (09:07→20:28)
[2020-06-22] MEDS: CISATRACURIUM BESYLATE 100 MG in SODIUM CHLORIDE 0.9% 100 ML IV SCH (09:09)
[2020-06-22] MEDS: NOREPINEPHRINE BITARTRATE 8 MG in SODIUM CHLORIDE 0.9% 250 ML IV SCH (09:10)
[2020-06-22] MEDS: PROPOFOL 1000 MG/100 ML IV PRN ×4 (10:15→19:58)
[2020-06-22] MEDS: FENTANYL 2500MCG+NS 250ML 250 ML IV SCH ×2 (10:15→18:10)
--- NOTE | 2020-06-22 11:28 | NUR ---
NEW ORDERS GENERAL LITHOGRAPHIC WORKER CONTACTED TO [facility] AND [place] DRIVER LICENSE AGENT. ONCALL CARDIOLOGY PAGED FOR CONSULT TO READ ECHO TODAY.
[2020-06-22] MEDS: DEXMEDETOMIDINE HCL 400 MCG in SODIUM CHLORIDE 0.9% 100 ML IV SCH (14:13)
[2020-06-22] MEDS ORDERED: SODIUM CHLORIDE 0.9% 500ML 500 ML IV ONE (17:45)
[2020-06-22] MEDS ORDERED: MIDAZOLAM 100MG-0.9% NS 100ML 100ML BAG IV PRN (19:15)
[2020-06-22] MEDS ORDERED: MIDAZOLAM HCL IV SCH (19:45)
[2020-06-22] MEDS ORDERED: SODIUM CHLORIDE 0.9% IV SCH (19:45)
[2020-06-23] VITALS (82 sets, daily range): BP systolic 57–197; BP diastolic 33–91
[2020-06-23] MEDS ORDERED: POTASSIUM CHLORIDE 20MEQ/100ML 100 ML IV PRN (00:30)
[2020-06-23] MEDS ORDERED: POTASSIUM CHLORIDE 20 MEQ ERTAB PO PRN (00:30)
[2020-06-23] MEDS ORDERED: POTASSIUM CHLORIDE 10% ELIXIR 20 MEQ/15 ML UDCUP PO PRN (00:30)
[2020-06-23] MEDS ORDERED: LIDOCAINE HCL-MPF 1% 2ML VIAL IJ PRN ×2 (00:30)
[2020-06-23] MEDS ORDERED: POTASSIUM CHLORIDE 20MEQ/100ML 100 ML IV ONE (00:31)
[2020-06-23] MEDS ORDERED: MAGNESIUM 2GM PREMIX 50ML 50 ML IV ONE (00:32)
[2020-06-23] MEDS: CEFEPIME HCL 2 GM VIAL IVP SCH (00:37)
[2020-06-23] MEDS: METOPROLOL TARTRATE 1 MG/ML 5ML VIAL IV SCH ×2 (02:04→08:38)
[2020-06-23] MEDS: FENTANYL 2500MCG+NS 250ML 250 ML IV SCH ×3 (02:04→19:01)
[2020-06-23 04:32] LABS: HEMATOCRIT 22.9 % (42-54); MEAN CORPUSCULAR HEMOGLOBIN 32.6 pg (27.0-33.0); MEAN CORPUSCULAR HGB CONC 32.3 g/dL (32.0-36.0); MEAN CORPUSCULAR VOLUME 100.9 fL (79-99); NUCLEATED RED BLOOD CELLS 0.3 % (0.0-0.19); RED BLOOD CELL COUNT(AUTO) 2.27 MIL/uL (4.50-6.20); RED CELL DISTRIBUTION WIDTH 17.2 % (11.0-15.5); WHITE BLOOD COUNT (AUTO) 7.7 K/uL (4.8-10.8)
[2020-06-23] MEDS: PROPOFOL 1000 MG/100 ML IV PRN ×2 (06:34→09:30)
[2020-06-23 07:27] LABS: ABG BASE EXCESS 10.7 mmol/L (-2.0-3.0); ABG HCO3 36.3 mmol/L (21.0-28.0); ABG OXYGEN SATURATION 97.8 % (95.0-99.0); ABG PCO2 51 mmHg (35-48)
[2020-06-23] MEDS: INSULIN HUMULIN R 100 UNIT/ML 3ML SQ SCH ×3 (07:30→18:20)
[2020-06-23] MEDS: MIDODRINE HCL 5 MG TABLET PO SCH ×2 (07:45→15:45)
[2020-06-23 07:59] LABS: CREATININE 0.4 mg/dL (0.5-1.5); POTASSIUM 3.5 mmol/L (3.5-5.1)
[2020-06-23] MEDS: INSULIN GLARGINE 100 UNITS/ML 10 ML VIAL SQ SCH ×2 (08:36→21:00)
[2020-06-23] MEDS: POTASSIUM CHLORIDE 20MEQ/100ML 100 ML IV PRN (08:37)
[2020-06-23] MEDS: FLUCONAZOLE 200 MG/NS 100 ML 100 ML IV SCH (08:37)
[2020-06-23] MEDS: ENOXAPARIN SODIUM 40 MG/0.4 ML SYRINGE SQ SCH (08:38)
[2020-06-23] MEDS: LINEZOLID 600 MG/ISO-OSM 300 ML IV SCH (08:38)
[2020-06-23] MEDS: ACETYLCYSTEINE 20% 200MG/ML 4ML VIAL PO SCH ×2 (08:39→21:00)
[2020-06-23] MEDS: FAMOTIDINE/PF 20 MG/2 ML VIAL IV SCH (08:39)
[2020-06-23] MEDS: DEXAMETHASONE SOD PHOSPHATE 4 MG/ML 1ML VIAL IVP SCH (08:39)
[2020-06-23] MEDS ORDERED: NOREPINEPHRINE 4MG/NS 250ML 250 ML IV ONE (09:25)
[2020-06-23] MEDS: MIDAZOLAM 100MG-0.9% NS 100ML 100ML BAG IV SCH (09:29)
[2020-06-23] MEDS: PHARMACY COMMUNICATION MISC SCH ×5 (12:30→22:30)
[2020-06-23] MEDS ORDERED: CISATRACURIUM BESYLATE 2 MG/ML 10ML VIAL IVP SCH (20:15)
[2020-06-23] MEDS ORDERED: CISATRACURIUM BESYLATE 100 MG in SODIUM CHLORIDE 0.9% 100 ML IV SCH (20:15)
[2020-06-23] MEDS ORDERED: ZIPRASIDONE HCL 20 MG CAPSULE PO SCH ×2 (21:00)
[2020-06-23] MEDS ORDERED: DEXTROSE 50%-WATER 50 ML DISP.SYRIN IV ONE (22:39)
[2020-06-24] VITALS (37 sets, daily range): BP systolic 62–197; BP diastolic 33–96
[2020-06-24 00:19] LABS: ABG BASE EXCESS 9.2 mmol/L (-2.0-3.0); ABG HCO3 34.4 mmol/L (21.0-28.0); ABG OXYGEN SATURATION 98.3 % (95.0-99.0); ABG PCO2 48 mmHg (35-48)
[2020-06-24] MEDS: MIDODRINE HCL 5 MG TABLET PO SCH ×2 (00:21→07:45)
[2020-06-24] MEDS: PHARMACY COMMUNICATION MISC SCH ×6 (00:30→08:03)
[2020-06-24] MEDS ORDERED: DEXMEDETOMIDINE HCL 200 MCG/2 ML VIAL IV ONE (01:00)
[2020-06-24] MEDS ORDERED: SODIUM CHLORIDE 0.9% 100 ML IV ONE (01:01)
[2020-06-24] MEDS ORDERED: DEXTROSE 50%-WATER 50 ML DISP.SYRIN IV ONE (03:04)
[2020-06-24] MEDS: INSULIN HUMULIN R 100 UNIT/ML 3ML SQ SCH ×4 (05:49→18:39)
[2020-06-24] MEDS: INSULIN GLARGINE 100 UNITS/ML 10 ML VIAL SQ SCH ×3 (05:49→22:02)
[2020-06-24] MEDS: MIDAZOLAM 100MG-0.9% NS 100ML 100ML BAG IV SCH (06:38)
[2020-06-24] MEDS: DEXMEDETOMIDINE HCL 400 MCG in SODIUM CHLORIDE 0.9% 100 ML IV SCH (06:38)
[2020-06-24] MEDS: FENTANYL 2500MCG+NS 250ML 250 ML IV SCH ×2 (06:38→12:47)
[2020-06-24 07:12] LABS: ABG BASE EXCESS 8.7 mmol/L (-2.0-3.0); ABG HCO3 33.6 mmol/L (21.0-28.0); ABG OXYGEN SATURATION 89.4 % (95.0-99.0); ABG PCO2 47 mmHg (35-48)
[2020-06-24 08:30] LABS: BASOPHILS % (AUTO) 0.4 % (0.0-5.0); EOSINOPHILS % (AUTO) 1.3 % (0.0-8.0); HEMATOCRIT 25.8 % (42-54); LYMPHOCYTES % (AUTO) 11.9 % (21.0-51.0); MEAN CORPUSCULAR HEMOGLOBIN 33.2 pg (27.0-33.0); MEAN CORPUSCULAR HGB CONC 32.6 g/dL (32.0-36.0); MONOCYTES % (AUTO) 5.3 % (3.0-13.0); NEUTROPHILS % (AUTO) 75.7 % (40.0-77.0); NUCLEATED RED BLOOD CELLS 0.9 % (0.0-0.19); PLATELET COUNT (AUTO) 201 K/uL (130-400); RED BLOOD CELL COUNT(AUTO) 2.53 MIL/uL (4.50-6.20); RED CELL DISTRIBUTION WIDTH 17.6 % (11.0-15.5); WHITE BLOOD COUNT (AUTO) 8.6 K/uL (4.8-10.8)
[2020-06-24 08:44] LABS: CREATININE 0.4 mg/dL (0.5-1.5); POTASSIUM 3.7 mmol/L (3.5-5.1)
[2020-06-24] MEDS: FLUCONAZOLE 200 MG/NS 100 ML 100 ML IV SCH (09:22)
[2020-06-24] MEDS: DEXAMETHASONE SOD PHOSPHATE 4 MG/ML 1ML VIAL IVP SCH (09:22)
[2020-06-24] MEDS: ACETYLCYSTEINE 20% 200MG/ML 4ML VIAL PO SCH ×2 (09:22→22:01)
[2020-06-24] MEDS: ENOXAPARIN SODIUM 40 MG/0.4 ML SYRINGE SQ SCH (09:23)
[2020-06-24] MEDS: PROPOFOL 1000 MG/100 ML IV PRN ×3 (09:23→16:27)
[2020-06-24] MEDS: POTASSIUM CHLORIDE 20MEQ/100ML 100 ML IV PRN (09:24)
[2020-06-24] MEDS: ZIPRASIDONE HCL 20 MG CAPSULE PO SCH (22:01)
[2020-06-25] VITALS (83 sets, daily range): BP systolic 55–254; BP diastolic 33–123
[2020-06-25] MEDS ORDERED: NOREPINEPHRINE BITARTRATE 1 MG/1 ML ML IV ONE (01:18)
[2020-06-25] MEDS: FENTANYL 2500MCG+NS 250ML 250 ML IV SCH (02:26)
[2020-06-25] MEDS: DEXMEDETOMIDINE HCL 400 MCG in SODIUM CHLORIDE 0.9% 100 ML IV SCH (02:27)
[2020-06-25] MEDS: PROPOFOL 1000 MG/100 ML IV PRN (02:27)
[2020-06-25 04:15] LABS: BASOPHILS % (AUTO) 0.3 % (0.0-5.0); EOSINOPHILS % (AUTO) 0.6 % (0.0-8.0); HEMATOCRIT 25.2 % (42-54); LYMPHOCYTES % (AUTO) 15.4 % (21.0-51.0); MEAN CORPUSCULAR HEMOGLOBIN 33.1 pg (27.0-33.0); MEAN CORPUSCULAR HGB CONC 31.7 g/dL (32.0-36.0); MEAN CORPUSCULAR VOLUME 104.1 fL (79-99); MONOCYTES % (AUTO) 6.5 % (3.0-13.0); NEUTROPHILS % (AUTO) 72.3 % (40.0-77.0); NUCLEATED RED BLOOD CELLS 0.6 % (0.0-0.19); PLATELET COUNT (AUTO) 186 K/uL (130-400); RED BLOOD CELL COUNT(AUTO) 2.42 MIL/uL (4.50-6.20); RED CELL DISTRIBUTION WIDTH 18.2 % (11.0-15.5); WHITE BLOOD COUNT (AUTO) 6.8 K/uL (4.8-10.8)
[2020-06-25 04:45] LABS: CREATININE 0.3 mg/dL (0.5-1.5); POTASSIUM 4.1 mmol/L (3.5-5.1)
[2020-06-25] MEDS: INSULIN HUMULIN R 100 UNIT/ML 3ML SQ SCH ×4 (06:49→12:10)
[2020-06-25 07:19] LABS: ABG BASE EXCESS 13.5 mmol/L (-2.0-3.0); ABG HCO3 40.5 mmol/L (21.0-28.0); ABG OXYGEN SATURATION 96.6 % (95.0-99.0); ABG PCO2 59 mmHg (35-48)
[2020-06-25] MEDS: FLUCONAZOLE 200 MG/NS 100 ML 100 ML IV SCH (08:19)
[2020-06-25] MEDS: ENOXAPARIN SODIUM 40 MG/0.4 ML SYRINGE SQ SCH (08:19)
[2020-06-25] MEDS: DEXAMETHASONE SOD PHOSPHATE 4 MG/ML 1ML VIAL IVP SCH (08:20)
[2020-06-25] MEDS: ACETYLCYSTEINE 20% 200MG/ML 4ML VIAL PO SCH ×2 (09:00→22:01)
[2020-06-25] MEDS ORDERED: METOPROLOL TARTRATE 1 MG/ML 5ML VIAL IV SCH (09:30)
--- NOTE | 2020-06-25 09:55 | NUR ---
HYPERTENSION & TACHYCARDIA Patient received sedated on fentanyl, propofol and versed. Patient blood pressure noted to be 207/93, heart rate up to 160's. Patient appears calm. CHILDREN'S ENTERTAINER Vandana Cornejo made aware, CHILDREN'S ENTERTAINER placed order for one time IV lopressor and scheduled po metroprolol. RN expressed to CHILDREN'S ENTERTAINER that tachycardia and hypertension appears to be anxiety secondary to patients sedation being weaned off. CHILDREN'S ENTERTAINER wants to try lopressor and monitor. Will administer meds and reassess.
--- NOTE | 2020-06-25 10:33 | NUR ---
HYPERTENSION & TACHYCARDIA FOLLOW UP 5 MG OF IV Lopressor given per STUDY COORDINATOR order, blood pressure is now 160/85 and heart rate 117. Will continue to monitor.
[2020-06-25] MEDS: METOPROLOL TARTRATE 25 MG TAB PO SCH ×2 (12:30→22:01)
[2020-06-25] MEDS ORDERED: ACETAMINOPHEN ELIXIR 650 MG/20.3 ML UDCUP ONE (12:42)
--- NOTE | 2020-06-25 12:58 | NUR ---
TEMP Patient noted to have fever of 102.5, hr 139, bp 209/98. Patient given tylenol and Ice placed on patient. AUTO BATTERY BUILDER Vandana notified and states she will place new orders. Awaiting new orders.
[2020-06-25] MEDS ORDERED: VANCOMYCIN PROTOCOL PER PHARMACY IV SCH (13:15)
[2020-06-25] MEDS: MEROPENEM 1 GM VIAL IVP SCH (13:15)
[2020-06-25] MEDS ORDERED: VASOPRESSIN 20 UNITS in SODIUM CHLORIDE 0.9% 100 ML IV SCH (14:15)
[2020-06-25] MEDS ORDERED: ZINC220C6 PO (14:25)
[2020-06-25] MEDS ORDERED: ALBU8.5H8 IH (14:25)
[2020-06-25] MEDS ORDERED: BENZ-17 PO (14:25)
[2020-06-25] MEDS ORDERED: DOXY100T21 PO (14:25)
[2020-06-25] MEDS ORDERED: ASCO500T10 PO (14:25)
[2020-06-25] MEDS ORDERED: DEXA6TAB7 PO (14:25)
--- NOTE | 2020-06-25 14:34 | NUR ---
PROGRESS NOTE 1400-Patient became hypotensive 46/30 om Elisabeth with adequate waveform and correlating cuff pressures. MARTITA Ross made aware,all sedation stopped, Levophed started @1mcg/kg/min. Patient became hypertensive 270's/140's, levophed titrated down. MARTITA Ross ordered that all sedation be restarted. sedation restarted and blood pressure began dropping. Propofol discontinued. Patient blood pressures quickly going from 60's/40's to 270's/100's. RN constantly titrating drips to keep blood pressure in normal range. 1600- [facility] OFF, to aid in blood pressure management. Levophed is infusing at 0.35 mcg/kg/min, vasopressin infusing at 0.04 mcg. MARTITA Ross says Bp is ok as long as systolic remains around 160's. BP currently 144/72, heart rate 60. Will continue to closely monitor patient. Addendum: 06/25/20 at 1610 by Carmela Morrow RN RN Systolic goal is less than 170 per MARTITA Ross
--- NOTE | 2020-06-25 18:29 | NUR ---
VANCOMYCIN Have not received patients IV Vancomycin yet, Pharmacy notified, awaiting delivery of vanco.
[2020-06-25] MEDS ORDERED: METOPROLOL TARTRATE 25 MG TAB PO SCH (21:00)
[2020-06-25] MEDS: VANCOMYCIN 1GM+NS 250ML 250 ML IV SCH (22:00)
[2020-06-25] MEDS: ZIPRASIDONE HCL 20 MG CAPSULE PO SCH (22:01)
[2020-06-25] MEDS: MAGNESIUM 2GM PREMIX 50ML 50 ML IV PRN (22:03)
[2020-06-26] VITALS (79 sets, daily range): BP systolic 68–217; BP diastolic 41–102
[2020-06-26] MEDS: MEROPENEM 1 GM VIAL IVP SCH ×2 (00:02→13:36)
[2020-06-26] MEDS: INSULIN HUMULIN R 100 UNIT/ML 3ML SQ SCH ×4 (00:03→18:48)
--- NOTE | 2020-06-26 00:33 | NUR ---
Upon assessment there is noted crepitus along the left collar bone and neck region up to the inferior area of the jaw line. Will reposition the patient and continue to monitor.
[2020-06-26 03:39] LABS: BASOPHILS % (AUTO) 0.1 % (0.0-5.0); EOSINOPHILS % (AUTO) 0.8 % (0.0-8.0); HEMATOCRIT 37.1 % (42-54); LYMPHOCYTES % (AUTO) 6.6 % (21.0-51.0); MEAN CORPUSCULAR HEMOGLOBIN 30.4 pg (27.0-33.0); MEAN CORPUSCULAR HGB CONC 30.5 g/dL (32.0-36.0); MEAN CORPUSCULAR VOLUME 99.7 fL (79-99); NEUTROPHILS % (AUTO) 89.1 % (40.0-77.0); PLATELET COUNT (AUTO) 205 K/uL (130-400); RED BLOOD CELL COUNT(AUTO) 3.72 MIL/uL (4.50-6.20); RED CELL DISTRIBUTION WIDTH 14.4 % (11.0-15.5); WHITE BLOOD COUNT (AUTO) 21.7 K/uL (4.8-10.8)
[2020-06-26 04:06] LABS: ALBUMIN 1.4 g/dL (3.5-5.0); CREATININE 3.5 mg/dL (0.5-1.5); MAGNESIUM 2.1 mg/dL (1.80-2.40); PHOSPHORUS 8.4 mg/dL (2.5-4.9); TOTAL PROTEIN, SERUM 5.5 g/dL (6.0-8.3)
[2020-06-26 04:10] LABS: POTASSIUM 6.6 mmol/L (3.5-5.1)
[2020-06-26] MEDS ORDERED: CALCIUM GLUCONATE 1 GM/10 ML VIAL IV ONE (04:52)
[2020-06-26] MEDS ORDERED: SODIUM POLYSTYRENE SULFONATE 15 GM/60 ML ML ONE (04:53)
[2020-06-26] MEDS ORDERED: DEXTROSE 50%-WATER 50 ML DISP.SYRIN IV ONE (04:53)
[2020-06-26] MEDS ORDERED: FUROSEMIDE 10 MG/ML 4ML VIAL ONE (04:54)
--- NOTE | 2020-06-26 04:54 | NUR ---
NOTIFIED DR ALVES OF ABG RESULTS. GAVE ORDERS TO INCREASE VT TO 550 AND DECREASE PEEP FROM 10 TO 6.
--- NOTE | 2020-06-26 04:54 | NUR ---
NOTIFIED DR. ALVES OF THE POTASSIUM OF 6.6. RECIEVED ORDERS TO GIVE.
[2020-06-26] MEDS: VANCOMYCIN 1GM+NS 250ML 250 ML IV SCH ×3 (05:28→23:14)
[2020-06-26 07:46] LABS: ABG BASE EXCESS 16.7 mmol/L (-2.0-3.0); ABG HCO3 42.6 mmol/L (21.0-28.0); ABG OXYGEN SATURATION 97.9 % (95.0-99.0); ABG PCO2 59 mmHg (35-48)
--- NOTE | 2020-06-26 08:18 | NUR ---
CREPITUS Patient noted to have crepitus to left neck up to jawline, also patients chest xray abdnormal. MD Pean notified about crepitus and patients chest xray., awaiting response.
[2020-06-26] MEDS: FLUCONAZOLE 200 MG/NS 100 ML 100 ML IV SCH (08:48)
[2020-06-26] MEDS: DEXAMETHASONE SOD PHOSPHATE 4 MG/ML 1ML VIAL IVP SCH (08:48)
[2020-06-26] MEDS: ENOXAPARIN SODIUM 40 MG/0.4 ML SYRINGE SQ SCH (08:49)
[2020-06-26] MEDS: ACETYLCYSTEINE 20% 200MG/ML 4ML VIAL PO SCH ×2 (09:00→21:00)
--- NOTE | 2020-06-26 10:07 | NUR ---
MD NOTIFIED RN called MD Maldonado and notified of crepitus and chest xray resulting Pneumomediastinum. No new orders or reccs from doctor. RT also made aware, will continue to monitor.
[2020-06-26] MEDS ORDERED: LIDOCAINE HCL 1% 20 ML VIAL ONE (14:11)
--- NOTE | 2020-06-26 15:31 | NUR ---
CHEST TUBE Emergent chest tube placed to right chest by MD MALDONADO. Chest tube placed to wall suction @ -40, tidaling noted.crepitus noted to bilateral mech and jaw line. Chest xray complete, MD Maldonado viewed xray immeadiately after it was vieweded by MD Maldonado. No new recs at this time, will continue to monitor.
--- NOTE | 2020-06-26 16:55 | NUR ---
STATUS Patient blood pressure dropping,restarted on vasopressin @ 0.04 and levophed @ 0.6 mcg/kg/min. bp currently 133/70. Will continue to monitor.
[2020-06-26] MEDS: ZIPRASIDONE HCL 20 MG CAPSULE PO SCH (21:00)
[2020-06-27] VITALS (95 sets, daily range): BP systolic 61–231; BP diastolic 36–111
[2020-06-27] MEDS: MEROPENEM 1 GM VIAL IVP SCH ×2 (03:13→12:19)
[2020-06-27 04:44] LABS: BASOPHILS % (AUTO) 0.3 % (0.0-5.0); EOSINOPHILS % (AUTO) 0.1 % (0.0-8.0); HEMATOCRIT 25.3 % (42-54); LYMPHOCYTES % (AUTO) 7.3 % (21.0-51.0); MEAN CORPUSCULAR HEMOGLOBIN 33.8 pg (27.0-33.0); MEAN CORPUSCULAR HGB CONC 31.6 g/dL (32.0-36.0); MEAN CORPUSCULAR VOLUME 106.8 fL (79-99); MONOCYTES % (AUTO) 6.3 % (3.0-13.0); NEUTROPHILS % (AUTO) 82.6 % (40.0-77.0); NUCLEATED RED BLOOD CELLS 0.2 % (0.0-0.19); PLATELET COUNT (AUTO) 302 K/uL (130-400); RED BLOOD CELL COUNT(AUTO) 2.37 MIL/uL (4.50-6.20); RED CELL DISTRIBUTION WIDTH 18.1 % (11.0-15.5); WHITE BLOOD COUNT (AUTO) 12.1 K/uL (4.8-10.8)
[2020-06-27 05:09] LABS: ALBUMIN 1.8 g/dL (3.5-5.0); BILIRUBIN,TOTAL 0.5 mg/dL (0.2-1.0); CREATININE 0.3 mg/dL (0.5-1.5); POTASSIUM 3.3 mmol/L (3.5-5.1); TOTAL PROTEIN, SERUM 5.6 g/dL (6.0-8.3)
[2020-06-27] MEDS: VANCOMYCIN 1GM+NS 250ML 250 ML IV SCH (06:00)
[2020-06-27] MEDS ORDERED: COMPOUND IV REFRIGERATED 1 EACH IVSOLN MISC PRN (07:45)
[2020-06-27] MEDS: ACETYLCYSTEINE 20% 200MG/ML 4ML VIAL PO SCH ×2 (09:00→21:00)
--- NOTE | 2020-06-27 09:02 | NUR ---
STATUS Patient received sedated on versed and fentanyl. Patient right chest noted to be more elevated than the left , Chest xray done this am.MD Bowser notified and states that ETT appears to be too far down and it is to be pulled back 2cm and repeat chest xray post retraction. Will notify RT. Will continue to monitor.
[2020-06-27] MEDS: ENOXAPARIN SODIUM 40 MG/0.4 ML SYRINGE SQ SCH (09:39)
[2020-06-27] MEDS: FLUCONAZOLE 200 MG/NS 100 ML 100 ML IV SCH (09:39)
[2020-06-27] MEDS: DEXAMETHASONE SOD PHOSPHATE 4 MG/ML 1ML VIAL IVP SCH (09:40)
[2020-06-27] MEDS: VANCOMYCIN 1.5 GM in SODIUM CHLORIDE 0.9% 250 ML IV SCH ×2 (13:02→22:00)
[2020-06-27] MEDS: INSULIN HUMULIN R 100 UNIT/ML 3ML SQ SCH ×3 (13:03→18:27)
[2020-06-27 13:30] LABS: ABG BASE EXCESS 12.4 mmol/L (-2.0-3.0); ABG HCO3 39.2 mmol/L (21.0-28.0); ABG OXYGEN SATURATION 91.7 % (95.0-99.0); ABG PCO2 66 mmHg (35-48)
[2020-06-27] MEDS ORDERED: NOREPINEPHRINE 4MG/NS 250ML 250 ML IV ONE (14:51)
--- NOTE | 2020-06-27 17:01 | NUR ---
Nutrition F/U: Pt intubated and sedated and on Tube feedings. Unable to reach nurse, but good tolerance noted. no documented distention, residuals, or bloating. LBM 8/8 x5. Recommend: Continue pt on Vital AF at 40 ml/hr. Current TF rate providin mg of Vit C & 19mg Zinc. Add promod 30ml TID for added 20gm protein. Will monitor renal labs. Monitor hydration for increased flushes. Addendum: 06/27/20 at [address] Amended: Links added.
[2020-06-27 17:56] LABS: ABG BASE EXCESS 12.8 mmol/L (-2.0-3.0); ABG PCO2 61 mmHg (35-48)
[2020-06-27] MEDS: HYDROCORTISONE SOD SUCCINATE 100 MG/2 ML VIAL IV SCH (18:00)
--- NOTE | 2020-06-27 18:41 | NUR ---
PROGRESS NOTE ET tube retracted 2 cm by RT, Chest xray done and MD Bowser says its in a good position, also states he can see pneumothorax decreasing since ETT retracted. Patient continues to have crepitus in face, neck and chest. No new reccs from MD. Will continue to monitor.
[2020-06-27] MEDS: FENTANYL 2500MCG+NS 250ML 250 ML IV SCH (20:59)
[2020-06-27] MEDS: ZIPRASIDONE HCL 20 MG CAPSULE PO SCH (21:00)
--- NOTE | 2020-06-27 21:40 | NUR ---
RADIOLOGY NOTIFIED ME OF NEW WORSENING PNEUMOTHORAX. CALLED WINCH RUNNER MD TO NOTIFY. NORMAN Aj ON STANDBY IF NEEDED.
--- NOTE | 2020-06-27 22:20 | NUR ---
ER DOC UNABLE TO COME PLACE CHEST TUBE NOTIFIED PINKING MACHINE OPERATOR MErika MARCOS CALLED IN AND SAID HE WILL BE IN ROUTE TO PLACE NEW CHEST TUBE. WILL GATHER SUPPLIES AND CONTINUE TO MONITOR THE PATIENT.
[2020-06-27] MEDS ORDERED: FENTANYL CITRATE PF 50 MCG/1 ML 5ML AMP IV ONE (23:29)
[2020-06-27] MEDS ORDERED: MIDAZOLAM HCL 1 MG/ML 2ML VIAL ONE (23:30)
[2020-06-28] VITALS (82 sets, daily range): BP systolic 88–196; BP diastolic 43–84
--- NOTE | 2020-06-28 00:49 | NUR ---
NEW CHEST TUBE INSERTED SUCCESSFULLY POSTERIOR TO FIRST CHEST TUBE. LEVEL 2 AIR LEAK NOTED VIA VIGOROUS BUBBLING IN WATER CHAMBER AND MILD TIDALING WITH RESPIRATIONS. CHEST XRAY PERFORMED M.Sierra VERFIED IMPROVEMENT OF PNEUMO ON CXR. DRESSING APPLIED. BOTH CHEST TUBES ARE CONNECTED TO -40CM OF SUCTION. VITALS SIGNS ARE STABLE AND VISIBLE IMPROVEMENT NOTED IN RIGHT SIDED CHEST WALL HEIGHT. Jean Marie CONSULTED CARDIO THORACIC SURGERY FOR FURTHER INTERVENTION NECESSARY.
--- NOTE | 2020-06-28 02:17 | NUR ---
[facility] 2ND ICU Addendum: 07/01/20 at 0918 by JAMA GAN RTSLT Amended: Links added.
[2020-06-28] MEDS: MEROPENEM 1 GM VIAL IVP SCH ×3 (02:25→23:34)
[2020-06-28 04:04] LABS: BASOPHILS % (AUTO) 0.1 % (0.0-5.0); HEMATOCRIT 21.6 % (42-54); MEAN CORPUSCULAR HEMOGLOBIN 33.8 pg (27.0-33.0); MEAN CORPUSCULAR HGB CONC 31.9 g/dL (32.0-36.0); MEAN CORPUSCULAR VOLUME 105.9 fL (79-99); MONOCYTES % (AUTO) 5.5 % (3.0-13.0); NEUTROPHILS % (AUTO) 85.6 % (40.0-77.0); PLATELET COUNT (AUTO) 202 K/uL (130-400); RED BLOOD CELL COUNT(AUTO) 2.04 MIL/uL (4.50-6.20); RED CELL DISTRIBUTION WIDTH 18.1 % (11.0-15.5); WHITE BLOOD COUNT (AUTO) 9.4 K/uL (4.8-10.8)
[2020-06-28 04:30] LABS: ALBUMIN 1.6 g/dL (3.5-5.0); BILIRUBIN,TOTAL 0.4 mg/dL (0.2-1.0); CREATININE 0.2 mg/dL (0.5-1.5); CRP QUANTITATIVE 23.9 mg/L (0.00-9.0)
--- NOTE | 2020-06-28 04:41 | NUR ---
HGB 6.9 HAD LAB PERFORM A STAT BLOOD DRAW TO CONFIRM. WILL AWAIT RESULTS.
[2020-06-28 04:54] LABS: POTASSIUM 2.9 mmol/L (3.5-5.1)
[2020-06-28 05:24] LABS: HEMATOCRIT 25.2 % (42-54)
[2020-06-28] MEDS: VANCOMYCIN 1.5 GM in SODIUM CHLORIDE 0.9% 250 ML IV SCH (05:26)
[2020-06-28] MEDS: HYDROCORTISONE SOD SUCCINATE 100 MG/2 ML VIAL IV SCH ×5 (05:26→23:34)
[2020-06-28] MEDS: INSULIN HUMULIN R 100 UNIT/ML 3ML SQ SCH ×5 (05:29→23:37)
[2020-06-28] MEDS: POTASSIUM CHLORIDE 20MEQ/100ML 100 ML IV PRN ×2 (05:57→08:19)
--- NOTE | 2020-06-28 06:31 | NUR ---
RECHECKED HEMOGLOBIN 7.9 AND ADDRESSING POTASSIUM OF 2.9 WITH A BOLUS OF 20 MEQ AT THIS TIME. WILL NEED ONE MORE BOLUS.
[2020-06-28 07:44] LABS: ABG BASE EXCESS 12.5 mmol/L (-2.0-3.0); ABG HCO3 39.5 mmol/L (21.0-28.0); ABG PCO2 60 mmHg (35-48)
[2020-06-28] MEDS: FENTANYL 2500MCG+NS 250ML 250 ML IV SCH ×2 (08:19→23:41)
[2020-06-28] MEDS: FLUCONAZOLE 200 MG/NS 100 ML 100 ML IV SCH (08:19)
[2020-06-28] MEDS: DEXAMETHASONE SOD PHOSPHATE 4 MG/ML 1ML VIAL IVP SCH (08:20)
[2020-06-28] MEDS: ENOXAPARIN SODIUM 40 MG/0.4 ML SYRINGE SQ SCH (08:20)
[2020-06-28] MEDS: ACETYLCYSTEINE 20% 200MG/ML 4ML VIAL PO SCH (08:21)
[2020-06-28 17:39] LABS: CREATININE 0.3 mg/dL (0.5-1.5); POTASSIUM 3.8 mmol/L (3.5-5.1)
[2020-06-28] MEDS: MIDAZOLAM 100MG-0.9% NS 100ML 100ML BAG IV SCH ×2 (17:54→23:41)
[2020-06-28] MEDS: ZIPRASIDONE HCL 20 MG CAPSULE PO SCH (20:11)
[2020-06-29] VITALS (50 sets, daily range): BP systolic 83–192; BP diastolic 44–94
[2020-06-29] MEDS ORDERED: SODIUM CHLORIDE 0.9% 500ML 500 ML IV ONE (03:21)
[2020-06-29 03:54] LABS: ABG OXYGEN SATURATION 95.5 % (95.0-99.0); ABG PCO2 53 mmHg (35-48)
[2020-06-29 04:02] LABS: HEMATOCRIT 23.6 % (42-54); MEAN CORPUSCULAR HEMOGLOBIN 33.6 pg (27.0-33.0); MEAN CORPUSCULAR HGB CONC 31.8 g/dL (32.0-36.0); MEAN CORPUSCULAR VOLUME 105.8 fL (79-99); NUCLEATED RED BLOOD CELLS 0.2 % (0.0-0.19); PLATELET COUNT (AUTO) 238 K/uL (130-400); RED BLOOD CELL COUNT(AUTO) 2.23 MIL/uL (4.50-6.20)
[2020-06-29 04:16] LABS: CREATININE 0.3 mg/dL (0.5-1.5); CRP QUANTITATIVE 26.8 mg/L (0.00-9.0)
[2020-06-29 04:24] LABS: POTASSIUM 2.5 mmol/L (3.5-5.1)
[2020-06-29 04:38] LABS: BAND NEUTROPHILS % (MANUAL) 11 % (0-2); LYMPHOCYTES % (MANUAL) 4 % (22-44); MAN.DIFF COMMENT-IMPRESSION MANUAL DIFFERENTIAL; METAMYELOCYTES % 1 % (0-0); PLATELET MORPHOLOGY COMMENT ADEQUATE; SEGMENTED NEUTROPHILS % 84 % (40-70)
[2020-06-29] MEDS: HYDROCORTISONE SOD SUCCINATE 100 MG/2 ML VIAL IV SCH ×3 (06:18→18:34)
[2020-06-29] MEDS: POTASSIUM CHLORIDE 20MEQ/100ML 100 ML IV PRN ×3 (06:19→22:29)
[2020-06-29] MEDS: MIDAZOLAM 100MG-0.9% NS 100ML 100ML BAG IV SCH (06:19)
[2020-06-29] MEDS: INSULIN HUMULIN R 100 UNIT/ML 3ML SQ SCH ×3 (06:19→18:35)
--- NOTE | 2020-06-29 06:24 | NUR ---
GIVING 20MEQ OF POTASSIUM PER PROTOCOL FOR K LEVEL OF 3.0. PT WILL NEED ONE MORE BAG.
--- NOTE | 2020-06-29 06:25 | NUR ---
NOTED SIGNIFICANT IMPROVEMENT IN CREPTIUS. CREPITUS HAS REDUCED ALONG NECK AND COLLR BONE REGION SIGNIFICANTLY. ALL VASOPRESSERS ARE OFF.
[2020-06-29 07:52] LABS: ABG BASE EXCESS 14.2 mmol/L (-2.0-3.0); ABG HCO3 41.7 mmol/L (21.0-28.0); ABG OXYGEN SATURATION 94.6 % (95.0-99.0); ABG PCO2 63 mmHg (35-48)
[2020-06-29] MEDS: FLUCONAZOLE 200 MG/NS 100 ML 100 ML IV SCH (09:00)
[2020-06-29] MEDS: DEXAMETHASONE SOD PHOSPHATE 4 MG/ML 1ML VIAL IVP SCH (09:00)
[2020-06-29] MEDS: ENOXAPARIN SODIUM 40 MG/0.4 ML SYRINGE SQ SCH (09:00)
[2020-06-29] MEDS ORDERED: LIDOCAINE HCL 1% 20 ML VIAL ONE (11:32)
--- NOTE | 2020-06-29 12:03 | NUR ---
CHEST TUBE PLACEMENT Third chest tube placed to right anterior chest by cardiothoracic MD. Chest tube placed to -40 suction. STAT chest xray pending, will continue to monitor.
[2020-06-29] MEDS: MEROPENEM 1 GM VIAL IVP SCH (13:49)
[2020-06-29] MEDS ORDERED: ACETAMINOPHEN ELIXIR 650 MG/20.3 ML UDCUP ONE (17:38)
[2020-06-29] MEDS: MAGNESIUM 2GM PREMIX 50ML 50 ML IV PRN (18:36)
--- NOTE | 2020-06-29 18:40 | NUR ---
SHIFT NOTE Sedation in process of being weaned per MD Bowser request. Precedex started to help with patient agitation. Versed is currently at 5, fentanyl still at 300 and precedex at 1.5. Potassium replaced and magnesium is infusing for replacement, mag resulted at 1.7 today. Repeat labs ordered for 1999. Anterior chest tube put out 70 ml of serosanguineous fluid, lateral chest tube put out 100 ml of serous fluid and posterior chest tube put out 20 ml of serosanguineous fluid. Temp 101.5, acetaminophen administered per MAR and iced. Currently slightly agitated but comfortable, will continue to monitor.
[2020-06-29 20:41] LABS: CREATININE 0.4 mg/dL (0.5-1.5); MAGNESIUM 2.8 mg/dL (1.80-2.40); POTASSIUM 3.2 mmol/L (3.5-5.1)
[2020-06-29] MEDS: ZIPRASIDONE HCL 20 MG CAPSULE PO SCH (21:42)
[2020-06-29] MEDS: FENTANYL 2500MCG+NS 250ML 250 ML IV SCH (22:28)
[2020-06-30] VITALS (57 sets, daily range): BP systolic 71–210; BP diastolic 42–107
[2020-06-30] MEDS: MEROPENEM 1 GM VIAL IVP SCH ×2 (01:45→12:49)
[2020-06-30] MEDS: HYDROCORTISONE SOD SUCCINATE 100 MG/2 ML VIAL IV SCH ×3 (01:45→12:50)
[2020-06-30 04:45] LABS: CRP QUANTITATIVE 16.6 mg/L (0.00-9.0)
[2020-06-30] MEDS: INSULIN HUMULIN R 100 UNIT/ML 3ML SQ SCH ×4 (05:20→17:39)
[2020-06-30 07:13] LABS: CREATININE 0.4 mg/dL (0.5-1.5); MAGNESIUM 1.9 mg/dL (1.80-2.40); POTASSIUM 3.9 mmol/L (3.5-5.1)
[2020-06-30 07:17] LABS: ABG BASE EXCESS 13.8 mmol/L (-2.0-3.0); ABG HCO3 39.8 mmol/L (21.0-28.0); ABG OXYGEN SATURATION 97.9 % (95.0-99.0); ABG PCO2 54 mmHg (35-48)
[2020-06-30] MEDS: MAGNESIUM 2GM PREMIX 50ML 50 ML IV PRN (08:04)
[2020-06-30] MEDS: ENOXAPARIN SODIUM 40 MG/0.4 ML SYRINGE SQ SCH (08:44)
[2020-06-30] MEDS: DEXAMETHASONE SOD PHOSPHATE 4 MG/ML 1ML VIAL IVP SCH (08:44)
[2020-06-30] MEDS: FLUCONAZOLE 200 MG/NS 100 ML 100 ML IV SCH (08:45)
[2020-06-30] MEDS: FENTANYL 2500MCG+NS 250ML 250 ML IV SCH (12:45)
[2020-06-30 14:29] LABS: ABG BASE EXCESS 8.9 mmol/L (-2.0-3.0); ABG HCO3 35.8 mmol/L (21.0-28.0); ABG OXYGEN SATURATION 94.3 % (95.0-99.0); ABG PCO2 58 mmHg (35-48)
[2020-06-30] MEDS ORDERED: SODIUM CHLORIDE 0.9% 500ML 500 ML IV ONE (16:35)
[2020-06-30 17:43] LABS: ABG BASE EXCESS 17.5 mmol/L (-2.0-3.0); ABG HCO3 45.4 mmol/L (21.0-28.0); ABG OXYGEN SATURATION 97.4 % (95.0-99.0); ABG PCO2 66 mmHg (35-48)
[2020-06-30] MEDS ORDERED: CALCIUM GLUCONATE 1 GM in SODIUM CHLORIDE 0.9% 100 ML IV SCH (20:30)
[2020-06-30] MEDS ORDERED: CALCIUM GLUCONATE 1 GM/10 ML VIAL IV ONE ×2 (20:53→23:17)
[2020-06-30] MEDS: ZIPRASIDONE HCL 20 MG CAPSULE PO SCH (21:00)
[2020-07-01] VITALS (42 sets, daily range): BP systolic 108–192; BP diastolic 56–96
[2020-07-01] MEDS: MEROPENEM 1 GM VIAL IVP SCH ×2 (01:15→13:29)
[2020-07-01 04:25] LABS: HEMATOCRIT 25.3 % (42-54); MEAN CORPUSCULAR HEMOGLOBIN 34.3 pg (27.0-33.0); MEAN CORPUSCULAR VOLUME 107.2 fL (79-99); NUCLEATED RED BLOOD CELLS 0.2 % (0.0-0.19); PLATELET COUNT (AUTO) 212 K/uL (130-400); RED BLOOD CELL COUNT(AUTO) 2.36 MIL/uL (4.50-6.20); RED CELL DISTRIBUTION WIDTH 18.6 % (11.0-15.5); WHITE BLOOD COUNT (AUTO) 10.8 K/uL (4.8-10.8)
[2020-07-01 04:42] LABS: ALBUMIN 1.6 g/dL (3.5-5.0); BILIRUBIN,TOTAL 0.5 mg/dL (0.2-1.0); CREATININE 0.4 mg/dL (0.5-1.5); CRP QUANTITATIVE 22.2 mg/L (0.00-9.0); POTASSIUM 3.3 mmol/L (3.5-5.1); TOTAL PROTEIN, SERUM 4.9 g/dL (6.0-8.3)
[2020-07-01] MEDS: INSULIN HUMULIN R 100 UNIT/ML 3ML SQ SCH ×4 (06:37→16:57)
[2020-07-01 07:15] LABS: ABG BASE EXCESS 13.4 mmol/L (-2.0-3.0); ABG HCO3 40.6 mmol/L (21.0-28.0); ABG OXYGEN SATURATION 97.7 % (95.0-99.0); ABG PCO2 61 mmHg (35-48)
[2020-07-01 07:18] LABS: BAND NEUTROPHILS % (MANUAL) 2 % (0-2); LYMPHOCYTES % (MANUAL) 3 % (22-44); MONOCYTES % (MANUAL) 3 % (2-9); SEGMENTED NEUTROPHILS % 92 % (40-70)
[2020-07-01 07:19] LABS: MAN.DIFF COMMENT-IMPRESSION MANUAL DIFFERENTIAL; PLATELET MORPHOLOGY COMMENT ADEQUATE
[2020-07-01] MEDS: MIDAZOLAM 100MG-0.9% NS 100ML 100ML BAG IV SCH ×3 (08:20→18:22)
[2020-07-01] MEDS: FLUCONAZOLE 200 MG/NS 100 ML 100 ML IV SCH (08:30)
[2020-07-01] MEDS: DEXAMETHASONE SOD PHOSPHATE 4 MG/ML 1ML VIAL IVP SCH (08:30)
[2020-07-01] MEDS: ENOXAPARIN SODIUM 40 MG/0.4 ML SYRINGE SQ SCH (08:32)
[2020-07-01] MEDS: DEXMEDETOMIDINE HCL 400 MCG in SODIUM CHLORIDE 0.9% 100 ML IV SCH (08:47)
[2020-07-01] MEDS: FENTANYL 2500MCG+NS 250ML 250 ML IV SCH ×2 (13:52→18:22)
--- NOTE | 2020-07-01 14:51 | NUR ---
RD FOLLOW UP NOTE Pt tolerating Vital High Protein tube feeding at goal rate, increased free water flushes as per EMR. Monitored labs: BG 176, K 3.3, CO2 39, BUN 29, Cr 0.4, Ca 8.4, Alb 1.6. Recommend increase tube feeding rate to 45mls/hr as medically feasible Constipation intervention needed as medically feasible RD to continue to monitor. Please notify as additional nutrition concerns arise. Thank you. Addendum: 07/01/20 at [address] RD Amended: Links added.
[2020-07-01] MEDS: ZIPRASIDONE HCL 20 MG CAPSULE PO SCH (21:36)
[2020-07-02] VITALS (69 sets, daily range): BP systolic 67–235; BP diastolic 36–114
[2020-07-02] MEDS: INSULIN HUMULIN R 100 UNIT/ML 3ML SQ SCH ×4 (00:10→15:54)
[2020-07-02] MEDS: MEROPENEM 1 GM VIAL IVP SCH ×2 (01:58→12:16)
[2020-07-02 04:38] LABS: BASOPHILS % (AUTO) 0.1 % (0.0-5.0); LYMPHOCYTES % (AUTO) 8.5 % (21.0-51.0); MEAN CORPUSCULAR HEMOGLOBIN 33.2 pg (27.0-33.0); MEAN CORPUSCULAR HGB CONC 31.7 g/dL (32.0-36.0); MEAN CORPUSCULAR VOLUME 104.5 fL (79-99); MONOCYTES % (AUTO) 4.9 % (3.0-13.0); NEUTROPHILS % (AUTO) 84.6 % (40.0-77.0); NUCLEATED RED BLOOD CELLS 0.4 % (0.0-0.19); PLATELET COUNT (AUTO) 204 K/uL (130-400); RED CELL DISTRIBUTION WIDTH 18.2 % (11.0-15.5); WHITE BLOOD COUNT (AUTO) 10.3 K/uL (4.8-10.8)
[2020-07-02 05:14] LABS: ALBUMIN 1.5 g/dL (3.5-5.0); BILIRUBIN,TOTAL 0.4 mg/dL (0.2-1.0); CREATININE 0.3 mg/dL (0.5-1.5); POTASSIUM 4.2 mmol/L (3.5-5.1); TOTAL PROTEIN, SERUM 4.7 g/dL (6.0-8.3)
[2020-07-02 07:16] LABS: ABG BASE EXCESS 10.1 mmol/L (-2.0-3.0); ABG HCO3 37.8 mmol/L (21.0-28.0); ABG OXYGEN SATURATION 92.8 % (95.0-99.0); ABG PCO2 64 mmHg (35-48)
[2020-07-02] MEDS ORDERED: HYDRALAZINE HCL 20 MG/ML VIAL IV PRN (08:15)
[2020-07-02] MEDS ORDERED: LABETALOL HCL 5 MG/ML 20ML VIAL IV ONE (08:17)
[2020-07-02] MEDS ORDERED: HYDRALAZINE HCL 20 MG/ML VIAL ONE (08:17)
[2020-07-02] MEDS ORDERED: PROPOFOL 1000 MG/100 ML 100 ML IV PRN (08:30)
[2020-07-02] MEDS ORDERED: PROPOFOL 1000 MG/100 ML IV PRN (08:30)
[2020-07-02] MEDS: PROPOFOL 1000 MG/100 ML IV PRN ×2 (08:34→13:59)
--- NOTE | 2020-07-02 08:35 | NUR ---
PT CARE IV propofol gtt initiated - versed gtt now @8mg/hr. Will titrate sedation per protocol and observe pt tolerance.
--- NOTE | 2020-07-02 08:41 | NUR ---
PT CARE Propofol gtt @10mcg/kg/min for ongoing increased work of breathing by pt, evidenced by RR 28-30, increased HR. O2 saturation maintained. Will observe pt tolerance and titrate meds to effect.
[2020-07-02] MEDS: FLUCONAZOLE 200 MG/NS 100 ML 100 ML IV SCH (08:46)
--- NOTE | 2020-07-02 08:46 | NUR ---
PT CARE Propofol gtt @15mcg/kg/min - will observe pt tolerance. At present, RR 23, HR 121 IBP 139/79, saturation 100%. Pt dyssynchronous with ventilator.
[2020-07-02] MEDS: NOREPINEPHRINE BITARTRATE 8 MG in SODIUM CHLORIDE 0.9% 250 ML IV SCH (09:29)
[2020-07-02] MEDS: DEXAMETHASONE SOD PHOSPHATE 4 MG/ML 1ML VIAL IVP SCH (09:33)
[2020-07-02] MEDS: DEXMEDETOMIDINE HCL 400 MCG in SODIUM CHLORIDE 0.9% 100 ML IV SCH ×2 (10:07→14:57)
[2020-07-02] MEDS: FENTANYL 2500MCG+NS 250ML 250 ML IV SCH ×2 (11:24→18:35)
--- NOTE | 2020-07-02 11:40 | NUR ---
Dr Bowser present outside patient's room, updated MD with current pt's status, including V/S, labs, currents MD lorri okayed the administration of Lovenox 40 MG subq, latest HGB 7.3
[2020-07-02] MEDS: ENOXAPARIN SODIUM 40 MG/0.4 ML SYRINGE SQ SCH (12:32)
[2020-07-02] MEDS: ZIPRASIDONE HCL 20 MG CAPSULE PO SCH (21:17)
[2020-07-02] MEDS: PANTOPRAZOLE 40 MG/VIAL IVP SCH (21:28)
[2020-07-03] VITALS (61 sets, daily range): BP systolic 75–196; BP diastolic 36–98
[2020-07-03] MEDS: MEROPENEM 1 GM VIAL IVP SCH ×2 (02:21→12:27)
[2020-07-03 04:15] LABS: BASOPHILS % (AUTO) 0.2 % (0.0-5.0); EOSINOPHILS % (AUTO) 0.1 % (0.0-8.0); HEMATOCRIT 25.3 % (42-54); LYMPHOCYTES % (AUTO) 7.8 % (21.0-51.0); MEAN CORPUSCULAR HEMOGLOBIN 34.7 pg (27.0-33.0); MEAN CORPUSCULAR HGB CONC 32.8 g/dL (32.0-36.0); MEAN CORPUSCULAR VOLUME 105.9 fL (79-99); NEUTROPHILS % (AUTO) 84.8 % (40.0-77.0); PLATELET COUNT (AUTO) 224 K/uL (130-400); RED BLOOD CELL COUNT(AUTO) 2.39 MIL/uL (4.50-6.20); RED CELL DISTRIBUTION WIDTH 18.3 % (11.0-15.5); WHITE BLOOD COUNT (AUTO) 11.1 K/uL (4.8-10.8)
[2020-07-03 05:09] LABS: ALBUMIN 1.7 g/dL (3.5-5.0); BILIRUBIN,TOTAL 0.4 mg/dL (0.2-1.0); CREATININE 0.3 mg/dL (0.5-1.5); POTASSIUM 4.1 mmol/L (3.5-5.1)
[2020-07-03] MEDS: INSULIN HUMULIN R 100 UNIT/ML 3ML SQ SCH ×4 (06:13→18:53)
[2020-07-03] MEDS: DEXMEDETOMIDINE HCL 400 MCG in SODIUM CHLORIDE 0.9% 100 ML IV SCH ×5 (07:51→21:40)
[2020-07-03] MEDS: FLUCONAZOLE 200 MG/NS 100 ML 100 ML IV SCH (08:00)
[2020-07-03] MEDS: ENOXAPARIN SODIUM 40 MG/0.4 ML SYRINGE SQ SCH (08:00)
[2020-07-03] MEDS: PANTOPRAZOLE 40 MG/VIAL IVP SCH ×2 (08:16→21:40)
[2020-07-03] MEDS: FENTANYL 2500MCG+NS 250ML 250 ML IV SCH ×3 (08:26→23:23)
[2020-07-03] MEDS: PROPOFOL 1000 MG/100 ML IV PRN ×4 (09:06→23:20)
[2020-07-03] MEDS ORDERED: SODIUM CHLORIDE 0.9% 1000ML 1,000 ML IV ONE (21:23)
--- NOTE | 2020-07-03 21:30 | NUR ---
Spoke w/PARKING PATROLLER Tiffani w/hospitalist team regarding HR in 120s. Pt afebrile at 98.6 axillary. Versed turned on to 2MG/HR to no effect on HR. Pt's SBP on Elisabeth currently 170s. PARKING PATROLLER Tiffani request versed be increased and a 250-500 ML NS bolus.
[2020-07-03] MEDS: ZIPRASIDONE HCL 20 MG CAPSULE PO SCH (21:40)
[2020-07-04] VITALS (21 sets, daily range): BP systolic 90–157; BP diastolic 47–79
[2020-07-04] MEDS: INSULIN HUMULIN R 100 UNIT/ML 3ML SQ SCH ×4 (00:30→18:00)
[2020-07-04] MEDS: MEROPENEM 1 GM VIAL IVP SCH ×2 (02:04→13:15)
[2020-07-04] MEDS: MIDAZOLAM 100MG-0.9% NS 100ML 100ML BAG IV SCH (02:30)
[2020-07-04] MEDS: DEXMEDETOMIDINE HCL 400 MCG in SODIUM CHLORIDE 0.9% 100 ML IV SCH (02:30)
[2020-07-04 04:23] LABS: HEMATOCRIT 27.5 % (42-54); MEAN CORPUSCULAR HEMOGLOBIN 34.6 pg (27.0-33.0); MEAN CORPUSCULAR HGB CONC 33.1 g/dL (32.0-36.0); MEAN CORPUSCULAR VOLUME 104.6 fL (79-99); NUCLEATED RED BLOOD CELLS 0.2 % (0.0-0.19); PLATELET COUNT (AUTO) 238 K/uL (130-400); RED BLOOD CELL COUNT(AUTO) 2.63 MIL/uL (4.50-6.20); RED CELL DISTRIBUTION WIDTH 18.1 % (11.0-15.5); WHITE BLOOD COUNT (AUTO) 12.4 K/uL (4.8-10.8)
[2020-07-04 04:53] LABS: ALBUMIN 1.7 g/dL (3.5-5.0); BILIRUBIN,TOTAL 0.5 mg/dL (0.2-1.0); CREATININE 0.3 mg/dL (0.5-1.5); POTASSIUM 3.9 mmol/L (3.5-5.1); TOTAL PROTEIN, SERUM 5.2 g/dL (6.0-8.3)
[2020-07-04 04:55] LABS: BAND NEUTROPHILS % (MANUAL) 1 % (0-2); EOSINOPHILS % (MANUAL) 2 % (1-6); LYMPHOCYTES % (MANUAL) 6 % (22-44); MAN.DIFF COMMENT-IMPRESSION MANUAL DIFFERENTIAL; MONOCYTES % (MANUAL) 4 % (2-9); SEGMENTED NEUTROPHILS % 87 % (40-70)
[2020-07-04] MEDS: FENTANYL 2500MCG+NS 250ML 250 ML IV SCH ×2 (06:02→19:57)
[2020-07-04 07:25] LABS: ABG BASE EXCESS 12.9 mmol/L (-2.0-3.0); ABG HCO3 40.7 mmol/L (21.0-28.0); ABG OXYGEN SATURATION 98.3 % (95.0-99.0); ABG PCO2 65 mmHg (35-48)
[2020-07-04] MEDS: FLUCONAZOLE 200 MG/NS 100 ML 100 ML IV SCH (08:24)
[2020-07-04] MEDS: ENOXAPARIN SODIUM 40 MG/0.4 ML SYRINGE SQ SCH (08:24)
[2020-07-04] MEDS: PANTOPRAZOLE 40 MG/VIAL IVP SCH ×2 (08:24→19:59)
[2020-07-04] MEDS: PROPOFOL 1000 MG/100 ML IV PRN ×2 (19:57→22:28)
[2020-07-04] MEDS: ZIPRASIDONE HCL 20 MG CAPSULE PO SCH (19:59)
--- NOTE | 2020-07-04 22:18 | NUR ---
Spoke w/Dr. Monique regarding HR. Pt's HR as high as 140s and currently 130s despite increases of sedation. MD request x1 10MG IV diltiazem for HR control.
[2020-07-04] MEDS ORDERED: DILTIAZEM HCL 5 MG/ML 5 ML VIAL IVP ONE (22:24)
[2020-07-04] MEDS ORDERED: DILTIAZEM HCL 5 MG/ML 10 ML VIAL IV SCH (22:30)
[2020-07-05] VITALS (17 sets, daily range): BP systolic 88–147; BP diastolic 53–78
[2020-07-05] MEDS: INSULIN HUMULIN R 100 UNIT/ML 3ML SQ SCH ×4 (00:57→18:12)
[2020-07-05] MEDS: MEROPENEM 1 GM VIAL IVP SCH (00:58)
--- NOTE | 2020-07-05 01:14 | NUR ---
Suspected cuff leak. Air placed into cuff multiple times with continued audible leak. Called Dr. Townsend who spoke w/ER provider Dr. Amaya who then replaced the ET tube at 0035 with bougie. Advanced to 23 CM at teeth by RT after follow up CXR.
[2020-07-05] MEDS: MIDAZOLAM 100MG-0.9% NS 100ML 100ML BAG IV SCH ×2 (03:34→23:54)
[2020-07-05] MEDS: FENTANYL 2500MCG+NS 250ML 250 ML IV SCH ×2 (03:35→20:26)
[2020-07-05] MEDS ORDERED: SODIUM CHLORIDE 0.9% 500ML 500 ML IV ONE (03:49)
[2020-07-05 04:06] LABS: BASOPHILS % (AUTO) 0.3 % (0.0-5.0); EOSINOPHILS % (AUTO) 0.2 % (0.0-8.0); HEMATOCRIT 27.6 % (42-54); LYMPHOCYTES % (AUTO) 4.1 % (21.0-51.0); MEAN CORPUSCULAR HEMOGLOBIN 34.5 pg (27.0-33.0); MEAN CORPUSCULAR HGB CONC 32.2 g/dL (32.0-36.0); MONOCYTES % (AUTO) 2.1 % (3.0-13.0); NEUTROPHILS % (AUTO) 91.5 % (40.0-77.0); PLATELET COUNT (AUTO) 201 K/uL (130-400); RED BLOOD CELL COUNT(AUTO) 2.58 MIL/uL (4.50-6.20); RED CELL DISTRIBUTION WIDTH 17.6 % (11.0-15.5)
[2020-07-05 04:34] LABS: ALBUMIN 1.5 g/dL (3.5-5.0); BILIRUBIN,TOTAL 0.5 mg/dL (0.2-1.0); CREATININE 0.3 mg/dL (0.5-1.5)
[2020-07-05] MEDS: PROPOFOL 1000 MG/100 ML IV PRN ×2 (04:39→20:07)
--- NOTE | 2020-07-05 05:43 | NUR ---
Called WAITER/WAITRESS TOURIST CLASS Tiffani to have levophed concentration be changed to 32MG in bag. With current concentration of 8MG bag will be very frequently replaced at 75ML/HR. WBC increase to 20 also discussed w/WAITER/WAITRESS TOURIST CLASS. WAITER/WAITRESS TOURIST CLASS states levophed bag may be concentrated and requests procalcitonin lab to further evaluate WBC increase.
[2020-07-05] MEDS ORDERED: NOREPINEPHRINE BITARTRATE 32 MG in SODIUM CHLORIDE 0.9% 250 ML IV SCH (06:00)
[2020-07-05] MEDS ORDERED: VASOPRESSIN 40 UNITS in SODIUM CHLORIDE 0.9% 40 ML IV SCH (08:00)
--- NOTE | 2020-07-05 08:04 | NUR ---
Assessment Pt this AM is ST with heartate into the 140s-150's. WBC has increased to 20 and procalcitonin is 1.63. Pt has new ET from this AM as cuff leak was evident. Contacted Dr. Maldonado at 0730 for vasopressin as Levophed has been increased from yesterday from 0.1 to 0.7. Will continue to monitor
--- NOTE | 2020-07-05 09:38 | NUR ---
Family Nurse spoke with the , Serena and updated her about patients declining status. Nurse addressed code status and confirmed still wants Full code. HR's is now in the 180's and starting vasopressin. Will continue to update of patients status throughout the day.
--- NOTE | 2020-07-05 10:08 | NUR ---
Order Updated Dr. Velásquez about pt's HR in the 180's. Will start Vasopressin and if HR continue's to stay in the 180's, order is to give scheduled metoprolol 5mg IV and hold for parameters
[2020-07-05] MEDS: PANTOPRAZOLE 40 MG/VIAL IVP SCH ×2 (10:11→20:07)
[2020-07-05] MEDS: FLUCONAZOLE 200 MG/NS 100 ML 100 ML IV SCH (10:11)
[2020-07-05] MEDS: ENOXAPARIN SODIUM 40 MG/0.4 ML SYRINGE SQ SCH (10:11)
[2020-07-05] MEDS ORDERED: LABETALOL 20 MG/4 ML DISP.SYRIN IV SCH (10:30)
[2020-07-05] MEDS ORDERED: LABETALOL 20 MG/4 ML DISP.SYRIN IV ONE (10:51)
[2020-07-05] MEDS: ACETAMINOPHEN ELIXIR 650 MG/20.3 ML UDCUP PEG PRN (11:47)
--- NOTE | 2020-07-05 17:33 | NUR ---
Updated family Nurse spoke with the patients and updated her of his current status. Explained patient is rapidly declining and we are starting a third vasopressor to maintain blood pressure stability. She understands and appreciated the update.
--- NOTE | 2020-07-05 17:34 | NUR ---
Pt care Order for third vasopressor per Dr. Joel. Order to start Epinephrine drip once Levohed and Vasopressin is maxed and start once MAP goes below 60.
[2020-07-05] MEDS: CEFEPIME HCL 1 GM VIAL IVP SCH (20:07)
[2020-07-05] MEDS: ZIPRASIDONE HCL 20 MG CAPSULE PO SCH (20:08)
[2020-07-05] MEDS ORDERED: PHENYLEPHRINE HCL 100 MG in SODIUM CHLORIDE 0.9% 250 ML IV SCH ×4 (21:00)
--- NOTE | 2020-07-05 21:01 | NUR ---
Called MARTITA Nixon to update provider on pt status. While pt is normotensive at this time, pt on high dose of 2.2 mcg/kg/min of levophed as well as vasopressin. Epinephrine is ordered but not started as pt's HR is 130s at this time. MARTITA Nixon requests phenylephrine to be started and states will call at [phone] to discuss code status.
--- NOTE | 2020-07-05 22:00 | NUR ---
After discussion with of pt Serena Rouse and TEST BORE HELPER Tiffani, pt's states wish for DNR status. Paper copy of DNR placed in chart. Linen Aidemiguel Amaya to contact for consolation.
[2020-07-06] VITALS (18 sets, daily range): BP systolic 101–155; BP diastolic 52–68
[2020-07-06] MEDS: INSULIN HUMULIN R 100 UNIT/ML 3ML SQ SCH ×3 (00:14→12:00)
[2020-07-06] MEDS: DEXMEDETOMIDINE HCL 400 MCG in SODIUM CHLORIDE 0.9% 100 ML IV SCH (01:54)
[2020-07-06] MEDS: CEFEPIME HCL 1 GM VIAL IVP SCH ×3 (01:55→18:30)
[2020-07-06 04:11] LABS: ALBUMIN 1.3 g/dL (3.5-5.0); BILIRUBIN,TOTAL 0.8 mg/dL (0.2-1.0); CREATININE 1.5 mg/dL (0.5-1.5); POTASSIUM 5.1 mmol/L (3.5-5.1); TOTAL PROTEIN, SERUM 5.3 g/dL (6.0-8.3)
--- NOTE | 2020-07-06 04:20 | NUR ---
Only 100ML of UOP over past 8 hours. Discussed w/ROLL UP OPERATOR Tiffani, states may provide 500ML NS bolus and if pt tolerates then a second 500ML NS bolus.
[2020-07-06 04:30] LABS: CRP QUANTITATIVE 509.4 mg/L (0.00-9.0)
[2020-07-06] MEDS ORDERED: SODIUM CHLORIDE 0.9% 1000ML 1,000 ML IV ONE (04:40)
[2020-07-06] MEDS ORDERED: SODIUM CHLORIDE 0.9% 1000ML 500 ML IV ONE (04:51)
[2020-07-06 07:47] LABS: BASOPHILS % (AUTO) 0.4 % (0.0-5.0); HEMATOCRIT 23.6 % (42-54); LYMPHOCYTES % (AUTO) 3.9 % (21.0-51.0); MEAN CORPUSCULAR HEMOGLOBIN 34.1 pg (27.0-33.0); MEAN CORPUSCULAR HGB CONC 30.9 g/dL (32.0-36.0); MEAN CORPUSCULAR VOLUME 110.3 fL (79-99); MONOCYTES % (AUTO) 3.6 % (3.0-13.0); NEUTROPHILS % (AUTO) 90.2 % (40.0-77.0); NUCLEATED RED BLOOD CELLS 0.2 % (0.0-0.19); PLATELET COUNT (AUTO) 111 K/uL (130-400); RED BLOOD CELL COUNT(AUTO) 2.14 MIL/uL (4.50-6.20); RED CELL DISTRIBUTION WIDTH 17.4 % (11.0-15.5); WHITE BLOOD COUNT (AUTO) 22.2 K/uL (4.8-10.8)
[2020-07-06] MEDS: FENTANYL 2500MCG+NS 250ML 250 ML IV SCH (08:03)
[2020-07-06] MEDS: FLUCONAZOLE 200 MG/NS 100 ML 100 ML IV SCH (08:03)
[2020-07-06] MEDS: ENOXAPARIN SODIUM 40 MG/0.4 ML SYRINGE SQ SCH (08:04)
[2020-07-06] MEDS: PROPOFOL 1000 MG/100 ML IV PRN (08:04)
[2020-07-06] MEDS: PANTOPRAZOLE 40 MG/VIAL IVP SCH ×2 (09:15→21:58)
[2020-07-06 16:32] LABS: INR 1.51 (0.85-1.15); PROTHROMBIN TIME 16.1 SEC (9.6-11.6)
--- NOTE | 2020-07-06 19:51 | NUR ---
6 FR 3 LUMEN PICC INSERTED TO RIGHT BASILIC VEIN, USING ASEPTIC TECHNIQUE. (+) VPS BULLSEYE INDICATES PICC TIP IN LOWER 1/3 OF SVC OR AT CAVOATRIAL JUNCTION. PICC OK TO USE PER PROTOCOL. ARM CIRCUMFERENCE 26CM. PICC UNCUT AT 50CM, WITH 47 CM INTERNAL, 3CM EXTERNAL. ALL 3 PORTS HAVE GOOD BLOOD RETURN, FLUSHED AND CLAMPED ASEPTICALLY Addendum: 07/06/20 at 6 by ASH VERGARA RN RN CORRECTION, PICC INSERTED TO LEFT BASILIC VEIN.
[2020-07-06] MEDS ORDERED: SODIUM CHLORIDE 0.9% 500ML 500 ML IV ONE (20:13)
[2020-07-06] MEDS: ZIPRASIDONE HCL 20 MG CAPSULE PO SCH (21:58)
[2020-07-06] MEDS: ACETAMINOPHEN ELIXIR 650 MG/20.3 ML UDCUP PEG PRN (22:16)
[2020-07-07] VITALS (22 sets, daily range): BP systolic 78–113; BP diastolic 51–68
[2020-07-07] MEDS: CEFEPIME HCL 1 GM VIAL IVP SCH ×2 (02:30→09:43)
[2020-07-07 04:26] LABS: BASOPHILS % (AUTO) 0.7 % (0.0-5.0); HEMATOCRIT 23.5 % (42-54); LYMPHOCYTES % (AUTO) 2.5 % (21.0-51.0); MEAN CORPUSCULAR HEMOGLOBIN 33.5 pg (27.0-33.0); MEAN CORPUSCULAR HGB CONC 29.8 g/dL (32.0-36.0); MEAN CORPUSCULAR VOLUME 112.4 fL (79-99); MONOCYTES % (AUTO) 3.7 % (3.0-13.0); NEUTROPHILS % (AUTO) 91.2 % (40.0-77.0); NUCLEATED RED BLOOD CELLS 0.5 % (0.0-0.19); PLATELET COUNT (AUTO) 99 K/uL (130-400); RED BLOOD CELL COUNT(AUTO) 2.09 MIL/uL (4.50-6.20); RED CELL DISTRIBUTION WIDTH 18.3 % (11.0-15.5); WHITE BLOOD COUNT (AUTO) 22.1 K/uL (4.8-10.8)
[2020-07-07 04:51] LABS: BILIRUBIN,TOTAL 0.9 mg/dL (0.2-1.0); CREATININE 2.4 mg/dL (0.5-1.5); TOTAL PROTEIN, SERUM 4.9 g/dL (6.0-8.3)
[2020-07-07 05:02] LABS: CRP QUANTITATIVE 90.7 mg/L (0.00-9.0)
[2020-07-07] MEDS: INSULIN HUMULIN R 100 UNIT/ML 3ML SQ SCH ×3 (06:00→18:00)
[2020-07-07] MEDS: ENOXAPARIN SODIUM 40 MG/0.4 ML SYRINGE SQ SCH (09:00)
[2020-07-07] MEDS: PANTOPRAZOLE 40 MG/VIAL IVP SCH ×2 (09:20→20:35)
[2020-07-07] MEDS: FLUCONAZOLE 200 MG/NS 100 ML 100 ML IV SCH (09:20)
[2020-07-07] MEDS: MEROPENEM 1 GM VIAL IVP SCH (11:30)
[2020-07-07 12:27] LABS: ABG BASE EXCESS -10.4 mmol/L (-2.0-3.0); ABG HCO3 22.4 mmol/L (21.0-28.0); ABG OXYGEN SATURATION 82.1 % (95.0-99.0); ABG PCO2 120 mmHg (35-48)
[2020-07-07] MEDS ORDERED: SODIUM BICARB 8.4% 50ML SYRING 150 MEQ in DEXTROSE 5%-WATER 1,000 ML IV SCH (14:45)
[2020-07-07] MEDS ORDERED: SODIUM BICARB 50MEQ 50ML VIAL IV SCH (14:45)
[2020-07-07] MEDS ORDERED: CALCIUM GLUCONATE 1 GM/10 ML VIAL IV SCH (14:45)
[2020-07-07] MEDS ORDERED: CALCIUM GLUCONATE 2 GM in SODIUM CHLORIDE 0.9% 100 ML IV SCH (16:00)
[2020-07-07 16:07] LABS: ABG BASE EXCESS -6.4 mmol/L (-2.0-3.0); ABG HCO3 24.8 mmol/L (21.0-28.0); ABG OXYGEN SATURATION 90.3 % (95.0-99.0); ABG PCO2 103 mmHg (35-48)
[2020-07-07] MEDS ORDERED: CALCIUM GLUCONATE 1 GM/10 ML VIAL IV ONE (17:01)
[2020-07-07] MEDS: LACTULOSE 20 GM/30 ML UDCUP PO SCH (20:35)
[2020-07-07] MEDS: ZIPRASIDONE HCL 20 MG CAPSULE PO SCH (20:35)
[2020-07-07] MEDS: FENTANYL 2500MCG+NS 250ML 250 ML IV SCH (20:56)
[2020-07-07] MEDS: MIDAZOLAM 100MG-0.9% NS 100ML 100ML BAG IV SCH (20:57)
[2020-07-07] MEDS: ALBUMIN (HUMAN) 25% 50 ML IV SCH (21:00)
[2020-07-08] VITALS (85 sets, daily range): BP systolic 28–291; BP diastolic 26–289
[2020-07-08] MEDS: MEROPENEM 1 GM VIAL IVP SCH ×2 (00:07→10:48)
[2020-07-08] MEDS: HYDROCORTISONE SOD SUCCINATE 100 MG/2 ML VIAL IV SCH ×4 (00:07→17:46)
[2020-07-08] MEDS: INSULIN HUMULIN R 100 UNIT/ML 3ML SQ SCH ×4 (00:09→17:32)
[2020-07-08 05:55] LABS: BASOPHILS % (AUTO) 0.5 % (0.0-5.0); EOSINOPHILS % (AUTO) 1.3 % (0.0-8.0); LYMPHOCYTES % (AUTO) 2.3 % (21.0-51.0); MEAN CORPUSCULAR HEMOGLOBIN 32.8 pg (27.0-33.0); MEAN CORPUSCULAR HGB CONC 29.5 g/dL (32.0-36.0); MEAN CORPUSCULAR VOLUME 111.3 fL (79-99); MONOCYTES % (AUTO) 2.9 % (3.0-13.0); NEUTROPHILS % (AUTO) 85.3 % (40.0-77.0); NUCLEATED RED BLOOD CELLS 0.9 % (0.0-0.19); PLATELET COUNT (AUTO) 25 K/uL (130-400); RED BLOOD CELL COUNT(AUTO) 1.86 MIL/uL (4.50-6.20); WHITE BLOOD COUNT (AUTO) 17.9 K/uL (4.8-10.8)
[2020-07-08 05:57] LABS: HEMATOCRIT 20.7 % (42-54)
[2020-07-08 06:21] LABS: ALANINE AMINOTRANSFERASE 92 U/L (12-78); ALBUMIN 1.8 g/dL (3.5-5.0); ASPARTATE AMINOTRANSFERASE 202 U/L (10-37); BILIRUBIN,TOTAL 1.3 mg/dL (0.2-1.0); CARBON DIOXIDE 26 mmol/L (21-32); CHLORIDE 107 mmol/L (101-111); CREATININE 2.6 mg/dL (0.5-1.5); GLOMERULAR FILTR. RATE CALC 27 mL/min (>60); GLUCOSE,RANDOM 185 mg/dL (70-105); LACTATE DEHYDROGENASE 713 U/L (81-234); POTASSIUM 4.5 mmol/L (3.5-5.1); SODIUM SERUM 147 mmol/L (136-145); TOTAL PROTEIN, SERUM 5.1 g/dL (6.0-8.3)
--- NOTE | 2020-07-08 06:37 | NUR ---
Pt hgb 6.1. Had lab draw peripherally to confirm stat. will await results before calling MD.
[2020-07-08 06:44] LABS: UREA NITROGEN, BLOOD 86 mg/dL (7-18)
[2020-07-08 06:56] LABS: HEMATOCRIT 20.9 % (42-54)
[2020-07-08] MEDS: ENOXAPARIN SODIUM 40 MG/0.4 ML SYRINGE SQ SCH (07:11)
[2020-07-08] MEDS ORDERED: SODIUM CHLORIDE 0.9% 250 ML IV ONE ×2 (07:29→15:11)
[2020-07-08] MEDS: FLUCONAZOLE 200 MG/NS 100 ML 100 ML IV SCH (08:20)
[2020-07-08] MEDS: LACTULOSE 20 GM/30 ML UDCUP PO SCH ×2 (08:20→20:11)
[2020-07-08] MEDS: PANTOPRAZOLE 40 MG/VIAL IVP SCH ×2 (08:34→20:11)
[2020-07-08] MEDS: FENTANYL 2500MCG+NS 250ML 250 ML IV SCH (10:48)
[2020-07-08] MEDS: ALBUMIN (HUMAN) 25% 50 ML IV SCH ×2 (12:00→20:11)
[2020-07-08 12:12] LABS: ABG BASE EXCESS -10.1 mmol/L (-2.0-3.0); ABG HCO3 21.2 mmol/L (21.0-28.0); ABG OXYGEN SATURATION 92.5 % (95.0-99.0); ABG PCO2 89 mmHg (35-48)
[2020-07-08] MEDS ORDERED: SODIUM BICARB 50MEQ 50ML VIAL ONE (12:27)
[2020-07-08] MEDS ORDERED: CALCIUM CHLORIDE 100 MG/ML 10 ML SYG IVP SCH (12:30)
[2020-07-08 12:31] LABS: INR 1.43 (0.85-1.15); PARTIAL THROMBOPLASTIN TIME 38.5 SEC (26.3-35.5); PROTHROMBIN TIME 15.2 SEC (9.6-11.6)
[2020-07-08] MEDS ORDERED: SODIUM BICARB 50MEQ 50ML VIAL IV SCH (12:45)
[2020-07-08] MEDS: EPINEPHRINE 10 MG in SODIUM CHLORIDE 0.9% 250 ML IV SCH ×2 (13:11→15:57)
[2020-07-08] MEDS ORDERED: [UNRECOGNIZED DRUG - REMARK] MISC SCH (15:45)
--- NOTE | 2020-07-08 16:40 | NUR ---
NS 250ML ADMINISTERED AT 1511 WAS GIVEN WITH BLOOD TRANSFUSION
[2020-07-08] MEDS ORDERED: BACTRIM 800MG/160MG 10ML VIAL 320 MG in DEXTROSE 5%-WATER 500 ML IV SCH (17:00)
[2020-07-08 17:06] LABS: ABG BASE EXCESS -12.5 mmol/L (-2.0-3.0); ABG HCO3 18.5 mmol/L (21.0-28.0); ABG OXYGEN SATURATION 95.4 % (95.0-99.0); ABG PCO2 76 mmHg (35-48)
[2020-07-08 18:10] LABS: BASOPHILS % (AUTO) 0.5 % (0.0-5.0); EOSINOPHILS % (AUTO) 2.2 % (0.0-8.0); HEMATOCRIT 24.4 % (42-54); LYMPHOCYTES % (AUTO) 1.5 % (21.0-51.0); MEAN CORPUSCULAR HEMOGLOBIN 31.5 pg (27.0-33.0); MEAN CORPUSCULAR HGB CONC 31.1 g/dL (32.0-36.0); MEAN CORPUSCULAR VOLUME 101.2 fL (79-99); MONOCYTES % (AUTO) 2.2 % (3.0-13.0); NEUTROPHILS % (AUTO) 71.7 % (40.0-77.0); NUCLEATED RED BLOOD CELLS 1.2 % (0.0-0.19); PLATELET COUNT (AUTO) 37 K/uL (130-400); RED BLOOD CELL COUNT(AUTO) 2.41 MIL/uL (4.50-6.20); RED CELL DISTRIBUTION WIDTH 22.4 % (11.0-15.5); WHITE BLOOD COUNT (AUTO) 15.2 K/uL (4.8-10.8)
[2020-07-08] MEDS: ZIPRASIDONE HCL 20 MG CAPSULE PO SCH (20:11)
[2020-07-11] MEDS ORDERED: LABETALOL 20 MG/4 ML DISP.SYRIN IV SCH (09:00)
== END 2020-07-08 22:12 | disposition expired | DRG 207 ==
LOC: EDH 08:46 → EDHIP 15:31 → 4BH 05-21 18:53 → 2BH 06-08 19:07 → 2CV 06-15 20:47 → 2BH 07-08 15:44
PROVIDERS: ADMIT Internal Medicine; ATTEND Internal Medicine
PROC: XW13325 Transfusion of Convalescent Plasma (Nonautologous) into Peripheral Vein, Percutaneous Approach, New Technology Group 5 (ICD-10-PCS; 2020-05-27)
PROC: XW033E5 Introduction of Remdesivir Anti-infective into Peripheral Vein, Percutaneous Approach, New Technology Group 5 (ICD-10-PCS; 2020-05-29)
PROC: XW033E5 Introduction of Remdesivir Anti-infective into Peripheral Vein, Percutaneous Approach, New Technology Group 5 (ICD-10-PCS; 2020-05-30)
PROC: 30233N1 Transfusion of Nonautologous Red Blood Cells into Peripheral Vein, Percutaneous Approach (ICD-10-PCS; 2020-05-31)
PROC: XW033E5 Introduction of Remdesivir Anti-infective into Peripheral Vein, Percutaneous Approach, New Technology Group 5 (ICD-10-PCS; 2020-05-31)
PROC: 30233R1 Transfusion of Nonautologous Platelets into Peripheral Vein, Percutaneous Approach (ICD-10-PCS; 2020-06-01)
PROC: XW033E5 Introduction of Remdesivir Anti-infective into Peripheral Vein, Percutaneous Approach, New Technology Group 5 (ICD-10-PCS; 2020-06-01)
PROC: XW033E5 Introduction of Remdesivir Anti-infective into Peripheral Vein, Percutaneous Approach, New Technology Group 5 (ICD-10-PCS; 2020-06-02)
PROC: 5A09357 Assistance with Respiratory Ventilation, Less than 24 Consecutive Hours, Continuous Positive Airway Pressure (ICD-10-PCS; 2020-06-03)
PROC: 5A1955Z Respiratory Ventilation, Greater than 96 Consecutive Hours (ICD-10-PCS; principal; 2020-06-08)
PROC: XW13325 Transfusion of Convalescent Plasma (Nonautologous) into Peripheral Vein, Percutaneous Approach, New Technology Group 5 (ICD-10-PCS; 2020-06-08)
PROC: 0BH17EZ Insertion of Endotracheal Airway into Trachea, Via Natural or Artificial Opening (ICD-10-PCS; 2020-06-08)
PROC: 0W9930Z Drainage of Right Pleural Cavity with Drainage Device, Percutaneous Approach (ICD-10-PCS; 2020-06-26)
PROC: 0W9900Z Drainage of Right Pleural Cavity with Drainage Device, Open Approach (ICD-10-PCS; 2020-06-29)
DX: U07.1 COVID-19 (principal); J96.01 Acute respiratory failure with hypoxia; J12.89 Other viral pneumonia; R65.21 Severe sepsis with septic shock; A41.51 Sepsis due to Escherichia coli [E. coli]; J93.0 Spontaneous tension pneumothorax; J96.02 Acute respiratory failure with hypercapnia; E87.1 Hypo-osmolality and hyponatremia; E87.3 Alkalosis; G93.40 Encephalopathy, unspecified; K92.2 Gastrointestinal hemorrhage, unspecified; N17.9 Acute kidney failure, unspecified; Z16.24 Resistance to multiple antibiotics; Z16.29 Resistance to other single specified antibiotic; J98.2 Interstitial emphysema; E11.65 Type 2 diabetes mellitus with hyperglycemia; D69.6 Thrombocytopenia, unspecified; D64.9 Anemia, unspecified; E86.9 Volume depletion, unspecified; E87.6 Hypokalemia; I10 Essential (primary) hypertension; K56.41 Fecal impaction; L98.429 Non-pressure chronic ulcer of back with unspecified severity; R13.12 Dysphagia, oropharyngeal phase; Y95 Nosocomial condition; Z66 Do not resuscitate; Z74.01 Bed confinement status; Z83.3 Family history of diabetes mellitus
CPT/HCPCS: 31500; 32551; 36415; 36430; 36600; 71045; 71250; 74018; 74176; 80048; 80053; 80202; 81001; 82270; 82310; 82435; 82550; 82728; 82803; 82947; 82948; 83036; 83540; 83550; 83605; 83615; 83735; 83874; 84100; 84132; 84145; 84295; 84443; 84484; 85014; 85018; 85025; 85027; 85045; 85378; 85520; 85610; 85730; 86022; 86140; 86850; 86900; 86901; 86922; 86923; 86927; 87040; 87071; 87077; 87088; 87186; 87205; 87804; 93005; 94002; 94003; 94660; 99291; C1751; C1894; C9113; G0378; J0171; J0360; J0610; J0692; J0696; J1100; J1450; J1650; J1720; J1815; J1940; J2020; J2060; J2185; J2250; J2370; J2704; J2920; J2930; J3010; J3370; J3475; J3480; J3490; J7030; J7040; J7050; J7060; J7070; J7120; J7608; P9016; P9017; P9034; P9047; Q9963; U0003